=== PATIENT | male | born 1955 | race Hispanic/Latino ===

== ENCOUNTER 2017-12-02 23:11 | Emergency (ER) | payer OTHER | END 2017-12-03 00:09 | disposition home or self-care (01) | LOC: ERS 23:11 | DX: L25.3 Unspecified contact dermatitis due to other chemical products (principal); I10 Essential (primary) hypertension; K74.60 Unspecified cirrhosis of liver; J44.9 Chronic obstructive pulmonary disease, unspecified; F41.9 Anxiety disorder, unspecified; F31.9 Bipolar disorder, unspecified; F20.9 Schizophrenia, unspecified; Z87.891 Personal history of nicotine dependence | CPT/HCPCS: 99283 ==

== ENCOUNTER 2017-12-24 06:57 | Emergency (ER) | payer OTHER ==
[2017-12-24] MEDS ORDERED: Dexamethasone 10 MG/ML VIAL ONE (07:43)
== END 2017-12-24 08:16 | disposition home or self-care (01) ==
LOC: ERS 06:57
DX: L40.9 Psoriasis, unspecified (principal); I10 Essential (primary) hypertension; J44.9 Chronic obstructive pulmonary disease, unspecified; F41.9 Anxiety disorder, unspecified; F31.9 Bipolar disorder, unspecified; F20.9 Schizophrenia, unspecified; Z87.891 Personal history of nicotine dependence
CPT/HCPCS: 96372; J1100

== ENCOUNTER 2018-01-08 21:17 | Emergency (ER) | payer OTHER ==
[~2018-01-08 21:17] MED LIST: ISOVUE-370 76%-LOCM 1 ML ONE
[2018-01-08 21:58] LABS: Bilirubin Small (Negative); Blood, Urine Large (Negative); Clarity CLEAR (Clear); Glucose, Urine (Dipstick) Negative (Negative); Leukocyte Trace (Negative); Nitrite Negative (Negative); Protein, Urine (Dipstick) Negative (Neg-Trace); Specific Gravity, Urine 1.017 (1.002-1.036)
[2018-01-08 22:00] LABS: Bacteria/HPF None Seen HPF (None Seen); Hyaline Casts/LPF 0-3 HYALINE CAST LPF (0-3 Hyaline); Squamous Epithelial None Seen HPF (0-3); WBC/HPF 0-3 HPF (0-3)
[2018-01-08 22:01] LABS: Hemoglobin 15.6 g/dL (14.0-18.0); Mean Corpuscular HGB CONC 33.3 g/dL (32.0-36.0); Mean Corpuscular Hemoglobin 37.9 pg (27.0-31.0); RBC Distribution Width 12.9 % (11.5-14.5); Red Blood Cell (RBC) Count 4.11 mill/uL (4.70-6.10); White Blood Cell (WBC) Count 7.4 thou/uL (4.8-10.8)
[2018-01-08 22:11] LABS: Yeast-AUWi Flag 57.3 (0-25.0); Yeast-All Forms None Seen HPF (None Seen)
[2018-01-08 22:13] LABS: ALT (SGPT) 20 U/L (8-55); AST (SGOT) 41 U/L (5-34); Albumin 3.2 g/dL (3.4-4.8); Alkaline Phosphatase 219 U/L (40-150); Anion Gap 11 mmol/L (10-20); BUN (Urea Nitrogen) 7 mg/dL (8.4-25.7); Bilirubin, Total 2.5 mg/dL (0.2-1.2); Calc. Creatinine Clearance 0 mL/min (70-130); Calcium 9.3 mg/dL (7.8-10.44); Carbon Dioxide 25 mmol/L (23-31); Chloride 108 mmol/L (98-107); Estimated GFR-MDRD Greater than 90; Globulin 3.5 g/dL (2.4-3.5); Glucose 123 mg/dL (80-115); Lipase 37 U/L (8-78); Potassium 3.8 mmol/L (3.5-5.1); Protein, Total 6.7 g/dL (5.8-8.1); Sodium 140 mmol/L (136-145)
[2018-01-08 22:17] LABS: #Basophils 0.1 thou/uL (0.0-0.2); #Lymphocytes 3.6 thou/uL (1.20-3.40); #Monocytes 0.9 thou/uL (0.11-0.59); #Neutrophils 2.7 thou/uL (1.40-6.50); %Basophils 1.7 % (0.0-1.0); %Eosinophils 0.1 % (0.0-10.0); %Lymphocytes 49.4 % (21.0-51.0); %Monocytes 12.7 % (0.0-10.0); %Neutrophils 36.1 % (42.0-75.0); MDiff Complete? YES; Macrocytosis SLIGHT = 6-15 cells (100X) (0-5/hpf); Mean Platelet Volume 8.5 fL (7.4-10.4); PLT Morphology Comment Appears Decreased; Platelet Count 115 thou/uL (130-400)
--- NOTE | 2018-01-08 22:41 | CT ---
CT ABDOMEN AND PELVIS WITH IV CONTRAST 01/08/18 HISTORY: Abdominal pain. Nausea. COMPARISON: 07/13/14. FINDINGS: There is mild atelectasis at the lung bases. Liver is diffusely hypodense with an irregular contour. Hypervascular lesions at the dome of the right liver lobe likely represents a hemangioma. Spleen is s urgically absent. Varices are apparent within the left upper quadrant. Hyperdense stones are evident within the gallbladder lumen. Multiple stones are present throughout nondilated calyces of the left kidney, measuring up to 1.1 cm. Urinary collecting systems and ureter are decompressed. Diverticula a rise from the colon without adjacent inflammation. There are degenerative changes of the lumbar spine . IMPRESSION: 1. 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 2. Nonobstructing left renal calculi. 3. Cholelithiasis. 4. Diverticulosis. No evidence of diverticulitis. 5. Hepatic steatosis. POS: [facility] [place]
== END 2018-01-08 23:13 | disposition home or self-care (01) ==
LOC: ERS 21:17
DX: R11.2 Nausea with vomiting, unspecified (principal); R16.0 Hepatomegaly, not elsewhere classified; R10.9 Unspecified abdominal pain; I10 Essential (primary) hypertension; J44.9 Chronic obstructive pulmonary disease, unspecified; F41.9 Anxiety disorder, unspecified; F20.9 Schizophrenia, unspecified; F31.9 Bipolar disorder, unspecified; Z87.891 Personal history of nicotine dependence; Z79.899 Other long term (current) drug therapy
CPT/HCPCS: 74177; 80053; 81003; 81015; 83690; 85025; 93005; 96360

== ENCOUNTER 2018-01-13 20:54 | Emergency (ER) | payer OTHER ==
[2018-01-13] MEDS ORDERED: Furosemide 20 MG/2 ML VIAL ONE (22:51)
[2018-01-13] MEDS ORDERED: Furosemide 40 MG/4 ML VIAL ONE (22:52)
[2018-01-13] MEDS ORDERED: Furosemide 40 MG TAB ONE (22:53)
== END 2018-01-13 23:16 | disposition home or self-care (01) ==
LOC: ERS 20:54
DX: R60.0 Localized edema (principal); F10.20 Alcohol dependence, uncomplicated; I10 Essential (primary) hypertension; K74.60 Unspecified cirrhosis of liver; J44.9 Chronic obstructive pulmonary disease, unspecified; F41.9 Anxiety disorder, unspecified; F31.9 Bipolar disorder, unspecified; F20.9 Schizophrenia, unspecified; Z87.891 Personal history of nicotine dependence
CPT/HCPCS: 99283; J1940

== ENCOUNTER 2018-01-19 21:39 | Emergency (ER) | payer OTHER ==
[2018-01-19 22:17] LABS: INR-International Normal Ratio 1.4; PTT 35.3 SEC (22.9-36.1); Prothrombin Time 17.3 SEC (12.0-14.7)
[2018-01-19 22:24] LABS: Lymphocytes 67 % (21-51); MDiff Complete? YES; Mean Corpuscular HGB CONC 33.1 g/dL (32.0-36.0); Mean Corpuscular Hemoglobin 37.6 pg (27.0-31.0); Mean Platelet Volume 8.6 fL (7.4-10.4); Monocytes 12 % (0-10); Neutrophil 19 % (42-75); PLT Morphology Comment Appears Adequate; Platelet Count 136 thou/uL (130-400); RBC Distribution Width 13.2 % (11.5-14.5); Red Blood Cell (RBC) Count 3.98 mill/uL (4.70-6.10)
[2018-01-19 22:30] LABS: ALT (SGPT) 22 U/L (8-55); AST (SGOT) 46 U/L (5-34); Albumin 3.2 g/dL (3.4-4.8); Alkaline Phosphatase 309 U/L (40-150); Anion Gap 12 mmol/L (10-20); BUN (Urea Nitrogen) 7 mg/dL (8.4-25.7); Bilirubin, Total 1.9 mg/dL (0.2-1.2); Calc. Creatinine Clearance 0 mL/min (70-130); Calcium 8.8 mg/dL (7.8-10.44); Carbon Dioxide 26 mmol/L (23-31); Chloride 110 mmol/L (98-107); Estimated GFR-MDRD Greater than 90; Globulin 3.3 g/dL (2.4-3.5); Glucose 136 mg/dL (80-115); Potassium 3.7 mmol/L (3.5-5.1); Protein, Total 6.5 g/dL (5.8-8.1); Sodium 144 mmol/L (136-145)
--- NOTE | 2018-01-19 23:48 | ULT ---
BILATERAL TESTICULAR ULTRASOUND WITH COLOR AND SPECTRAL DOPPLER: History: Injury. Bleeding from the right scrotum. FINDINGS: The right testes measures 4.1 x 2.4 x 3 cm and the left testes measures 4.2 x 2.2 x 3 cm. There is no rmal flow demonstrated to both testicles without focal mass or microlithiasis. The epididymi have a n ormal appearance and demonstrate symmetric flow bilaterally. Small hydroceles are seen on either side . A left sided extratesticular tubular structure is seen with increased flow of valsalva consistent w ith variceal. IMPRESSION: 1. Left sided vericocele. 2. Small bilateral hydroceles. 3. No evidence of testicular fracture. POS: [facility]
== END 2018-01-20 00:02 | disposition home or self-care (01) ==
LOC: ERS 21:39
DX: N50.1 Vascular disorders of male genital organs (principal); I10 Essential (primary) hypertension; J44.9 Chronic obstructive pulmonary disease, unspecified; F41.9 Anxiety disorder, unspecified; F20.9 Schizophrenia, unspecified; Z79.899 Other long term (current) drug therapy
CPT/HCPCS: 76870; 80053; 85025; 85610; 85730; 93976

== ENCOUNTER 2018-03-02 05:39 | Emergency (ER) | payer OTHER | END 2018-03-02 07:27 | disposition home or self-care (01) | LOC: ERS 05:39 | DX: S00.81XA Abrasion of other part of head, initial encounter (principal); F10.10 Alcohol abuse, uncomplicated; I10 Essential (primary) hypertension; J44.9 Chronic obstructive pulmonary disease, unspecified; F41.9 Anxiety disorder, unspecified; F31.9 Bipolar disorder, unspecified; F20.9 Schizophrenia, unspecified; Z87.891 Personal history of nicotine dependence; Z79.899 Other long term (current) drug therapy; X58.XXXA Exposure to other specified factors, initial encounter | CPT/HCPCS: 99283 ==

== ENCOUNTER 2018-04-08 23:09 | Emergency (ER) | payer OTHER ==
[2018-04-09] LABS: Hemoglobin 15.4 g/dL (14.0-18.0); Mean Corpuscular HGB CONC 33.3 g/dL (32.0-36.0); Mean Corpuscular Hemoglobin 36.8 pg (27.0-31.0); RBC Distribution Width 13.2 % (11.5-14.5); Red Blood Cell (RBC) Count 4.18 mill/uL (4.70-6.10); White Blood Cell (WBC) Count 6.7 thou/uL (4.8-10.8)
[2018-04-09 00:18] LABS: ALT (SGPT) 39 U/L (8-55); AST (SGOT) 81 U/L (5-34); Albumin 3.2 g/dL (3.4-4.8); Alkaline Phosphatase 182 U/L (40-150); Anion Gap 10 mmol/L (10-20); BUN (Urea Nitrogen) 9 mg/dL (8.4-25.7); Bilirubin, Total 4.3 mg/dL (0.2-1.2); Calc. Creatinine Clearance 0 mL/min (70-130); Calcium 9.1 mg/dL (7.8-10.44); Carbon Dioxide 23 mmol/L (23-31); Chloride 104 mmol/L (98-107); Estimated GFR-MDRD Greater than 90; Globulin 3.5 g/dL (2.4-3.5); Glucose 104 mg/dL (80-115); Potassium 3.7 mmol/L (3.5-5.1); Protein, Total 6.7 g/dL (5.8-8.1); Sodium 133 mmol/L (136-145)
[2018-04-09 00:24] LABS: Bilirubin Negative (Negative); Blood, Urine Negative (Negative); Clarity CLEAR (Clear); Glucose, Urine (Dipstick) Negative (Negative); Leukocyte Negative (Negative); Nitrite Negative (Negative); Protein, Urine (Dipstick) Negative (Neg-Trace); Specific Gravity, Urine 1.007 (1.002-1.036)
[2018-04-09 00:27] LABS: Band 1 % (5-11); Eosinophils 1 % (0-10); Lymphocytes 57 % (21-51); MDiff Complete? YES; Macrocytosis SLIGHT = 6-15 cells (100X) (0-5/hpf); Mean Platelet Volume 9.9 fL (7.4-10.4); Monocytes 12 % (0-10); Neutrophil 28 % (42-75); PLT Morphology Comment Appears Decreased; Platelet Count 78 thou/uL (130-400); Reactive Lymphocytes 1 % (0-10)
[2018-04-09 01:11] LABS: Lipase 51 U/L (8-78)
== END 2018-04-09 01:38 | disposition home or self-care (01) ==
LOC: ERS 23:09
DX: K92.2 Gastrointestinal hemorrhage, unspecified (principal); D69.59 Other secondary thrombocytopenia; L29.0 Pruritus ani; R79.89 Other specified abnormal findings of blood chemistry; I10 Essential (primary) hypertension; F41.9 Anxiety disorder, unspecified; F31.9 Bipolar disorder, unspecified; Z87.891 Personal history of nicotine dependence; Z79.899 Other long term (current) drug therapy
CPT/HCPCS: 36415; 80053; 81003; 82274; 83690; 85025; 86850; 86900; 86901; 96360

== ENCOUNTER 2019-05-25 02:53 | Emergency (ER) | payer OTHER ==
[2019-05-25 03:46] LABS: Band 2 % (5-11); Eosinophils 1 % (0-10); Hemoglobin 14.1 g/dL (14.0-18.0); Lymphocytes 56 % (21-51); MDiff Complete? YES; Macrocytosis MODERATE=16-30 cells (100X) (0-5/hpf); Mean Corpuscular HGB CONC 31.7 g/dL (32.0-36.0); Mean Corpuscular Hemoglobin 37.4 pg (27.0-31.0); Mean Platelet Volume 9.5 fL (7.4-10.4); Monocytes 11 % (0-10); Neutrophil 28 % (42-75); Platelet Count 93 thou/uL (130-400); Platelet Morphology Comment Appears Decreased; RBC Distribution Width 14.4 % (11.5-14.5); Reactive Lymphocytes 2 % (0-10); Red Blood Cell (RBC) Count 3.76 mill/uL (4.70-6.10); White Blood Cell (WBC) Count 8.6 thou/uL (4.8-10.8)
[2019-05-25 03:54] LABS: ALT (SGPT) 43 U/L (8-55); AST (SGOT) 98 U/L (5-34); Albumin 2.9 g/dL (3.4-4.8); Alkaline Phosphatase 254 U/L (40-150); Anion Gap 11 mmol/L (10-20); BUN (Urea Nitrogen) 8 mg/dL (8.4-25.7); Bilirubin, Total 3.9 mg/dL (0.2-1.2); Calc. Creatinine Clearance 0 mL/min (70-130); Calcium 8.9 mg/dL (7.8-10.44); Carbon Dioxide 23 mmol/L (23-31); Chloride 107 mmol/L (98-107); Estimated GFR-MDRD Greater than 90; Globulin 3.3 g/dL (2.4-3.5); Glucose 105 mg/dL (80-115); Potassium 3.9 mmol/L (3.5-5.1); Protein, Total 6.2 g/dL (5.8-8.1); Sodium 137 mmol/L (136-145)
--- NOTE | 2019-05-25 08:12 | RAD ---
CHEST 2 VIEWS: INDICATION: Chest pain. COMPARISON: Prior exam dated 08/24/2016 and 06/13/2017. FINDINGS: No confluent airspace opacity or pleural effusion is evident. Heart size is upper limits of normal. No acute osseous abnormality is evident. IMPRESSION: No acute cardiopulmonary abnormality. POS: [facility]
== END 2019-05-25 06:05 | disposition home or self-care (01) ==
LOC: ERS 02:53
DX: R60.0 Localized edema (principal); I10 Essential (primary) hypertension; F31.9 Bipolar disorder, unspecified; F41.9 Anxiety disorder, unspecified; F20.9 Schizophrenia, unspecified; Z87.891 Personal history of nicotine dependence; Z79.899 Other long term (current) drug therapy
CPT/HCPCS: 36415; 71046; 80053; 83880; 84484; 85025; 93005

== ENCOUNTER 2019-06-03 01:21 | Emergency (ER) | payer OTHER | END 2019-06-03 03:05 | disposition home or self-care (01) | LOC: ERS 01:21 | DX: Z03.89 Encounter for observation for other suspected diseases and conditions ruled out (principal); I10 Essential (primary) hypertension; J44.9 Chronic obstructive pulmonary disease, unspecified; F32.9 Major depressive disorder, single episode, unspecified; F41.9 Anxiety disorder, unspecified; F20.9 Schizophrenia, unspecified; Z87.891 Personal history of nicotine dependence; Z79.899 Other long term (current) drug therapy | CPT/HCPCS: 99283 ==

== ENCOUNTER 2019-08-28 20:50 | Inpatient (IN) | payer OTHER ==
[2019-08-28 21:48] LABS: Hemoglobin 14.2 g/dL (14.0-18.0); Red Blood Cell (RBC) Count 3.63 mill/uL (4.70-6.10); White Blood Cell (WBC) Count 16.7 thou/uL (4.8-10.8)
[2019-08-28 22:04] LABS: Band 13 % (5-11); Lymphocytes 1 % (21-51); MDiff Complete? YES; Macrocytosis SLIGHT = 6-15 cells (100X) (0-5/hpf); Mean Corpuscular HGB CONC 33.7 g/dL (32.0-36.0); Mean Corpuscular Hemoglobin 39.1 pg (27.0-31.0); Mean Platelet Volume 10.8 fL (7.4-10.4); Monocytes 6 % (0-10); Neutrophil 80 % (42-75); Platelet Count 60 thou/uL (130-400); Platelet Morphology Comment Appears Decreased; RBC Distribution Width 14.7 % (11.5-14.5)
[2019-08-28 22:09] LABS: ALT (SGPT) 68 U/L (8-55); AST (SGOT) 360 U/L (5-34); Acetaminophen Less than 6.0 mcg/mL (10.0-30.0); Albumin 2.5 g/dL (3.4-4.8); Alcohol Less than 10 mg/dL (Less than 10); Alkaline Phosphatase 176 U/L (40-110); Anion Gap 12 mmol/L (10-20); BUN (Urea Nitrogen) 15 mg/dL (8.4-25.7); Calc. Creatinine Clearance 0 mL/min (70-130); Carbon Dioxide 22 mmol/L (23-31); Chloride 100 mmol/L (98-107); Estimated GFR-MDRD 76; Globulin 3.4 g/dL (2.4-3.5); Glucose 124 mg/dL (80-115); Lipase 16 U/L (8-78); Potassium 3.7 mmol/L (3.5-5.1); Protein, Total 5.9 g/dL (5.8-8.1); Salicylate Less than 8.0 mg/dL (15.0-30.0); Sodium 130 mmol/L (136-145)
[2019-08-28] MEDS ORDERED: Piperacillin/Tazobactam 4.5 GM VIAL ONE (22:24)
[2019-08-28 22:30] LABS: CKMB 5.9 ng/mL (0-6.6)
[2019-08-28 23:12] LABS: Amphetamine Not Detected (NotDetected); Barbiturates Screen Not Detected (NotDetected); Benzodiazepine Screen Not Detected (NotDetected); Cocaine Metabolite Screen Not Detected (NotDetected); Medtox Control Line Valid? VALID (VALID); Medtox Reader # READER 4; Methadone Not Detected (NotDetected); Methamphetamine Not Detected (NotDetected); Opiate Screen Not Detected (NotDetected); Oxycodone Screen Not Detected (NotDetected); Phencyclidine (PCP) Not Detected (NotDetected); THC/Cannabinoid Screen Not Detected (NotDetected); Tricyclic Screen Not Detected (NotDetected)
--- NOTE | 2019-08-28 23:13 | CT ---
EXAM: CT brain without contrast HISTORY: Fall with head trauma COMPARISON: 09/24/2016 TECHNIQUE: Multiple contiguous axial images were obtained and a CT of the brain without contrast. FINDINGS: The brain is normal in morphology and attenuation without focal lesions or confluent areas of infarction. There is no evidence of hydrocephalus, intracranial hemorrhage, or extra-axial fluid collection. The calvarium and overlying soft tissues are unremarkable. The visualized paranasal sinuses and masto id air cells are well aerated. IMPRESSION: No evidence of acute intracranial abnormality
--- NOTE | 2019-08-28 23:14 | CT ---
EXAM: CT of the cervical spine without contrast HISTORY: Fall in shower with head trauma and neck pain COMPARISON: 01/02/2016 TECHNIQUE: Multiple contiguous axial images were obtained in a CT of the cervical spine without contr ast. Sagittal and coronal reformats were performed. FINDINGS: The vertebral bodies and intervertebral discs demonstrate normal height and alignment witho ut fracture or subluxation. Degenerative changes are seen at C6/7. No prevertebral soft tissue swelling is seen. The posterior facets are well aligned. Normal alignment of the skull base with the cervical spine is seen. The lung apices and cervical soft tissues are unremarkable. IMPRESSION: No evidence of acute osseous abnormality of the cervical spine.
--- NOTE | 2019-08-28 23:22 | CT ---
EXAM: 1. CT of the chest with contrast 2. CT of the abdomen and pelvis with contrast 3. Limited CT of the thoracic and lumbosacral spine with contrast HISTORY: Fall in shower with chest pain, abdominal pain, and back pain. COMPARISON: 01/08/2018 TECHNIQUE: 1. Multiple contiguous axial images were obtained in a CT the chest with contrast. Coronal reformats were performed. 2. Multiple contiguous axial images were obtained in a CT of the abdomen and pelvis with contrast. Co jennifer reformats were performed. 3. Limited CTs of the thoracic and lumbosacral spines were performed with contrast. Sagittal and milagros nal re-reformats were created based off images obtained in the chest, abdomen, and pelvic CTs. FINDINGS: CT CHEST: Mediastinum: Heart is normal in size without focal cardiac abnormality. No hilar or mediastinal lymph adenopathy. No mediastinal hemorrhage. Lungs: No focal infiltrates or nodules. Bibasilar atelectasis. Pleural space: No pneumothorax or pleural effusion. Thoracic bones: No evidence of acute fracture. Thoracic chest wall: Unremarkable. CT ABDOMEN/PELVIS: Peritoneum: No free air or stranding changes. A small amount of free fluid is seen adjacent to the li ofelia. Liver: Liver is cirrhotic. There are 3 areas of hyperenhancement in the liver measuring up to 4.8 cm in size. These have enlarged compared to the prior examination and are concerning for multifocal hepatocellular carcinoma. Gallbladder: Calcified gallstones. Adrenal glands: Unremarkable. Kidneys: Nonobstructing bilateral renal calcifications measuring up to 10 mm in size on the left. Spleen: Absent. There may be a small splenule just above the left kidney. There are multiple varices in the left upper quadrant of the abdomen. Pancreas: Unremarkable. Bowel: Unremarkable. Retroperitoneum: No lymphadenopathy. Atherosclerotic calcifications in the aorta. Pelvis: No focal mass or abnormality. The reproductive organs are unremarkable. Pelvic bones: No acute fracture identified. LIMITED CT OF THE THORACIC AND LUMBOSACRAL SPINE: No fracture or subluxation is seen. No prevertebral soft tissue swelling are present. IMPRESSION: 1. No evidence of acute intrathoracic abnormality 2. No evidence of acute intra-abdominal or pelvic abnormality 3. No evidence of acute osseous abnormality of the thoracic or lumbosacral spine. 4. Cirrhosis with sequelae of portal hypertension 5. Enlarging liver masses are concerning for multifocal hepatocellular carcinoma. 6. Cholelithiasis 7. Bilateral nonobstructing renal calculi
[2019-08-28 23:34] LABS: PTT 38.5 SEC (22.9-36.1); Prothrombin Time 22.6 SEC (12.0-14.7)
[2019-08-29] MEDS ORDERED: Furosemide 40 MG/4 ML VIAL ONE (00:10)
[2019-08-29 01:59] LABS: Bacteria/HPF None Seen HPF (None Seen); Bilirubin Negative (Negative); Blood, Urine 1+ (Negative); Clarity Clear (Clear); Glucose, Urine (Dipstick) Normal (Negative); Leukocyte Negative Leu/uL (Negative); Nitrite Negative (Negative); Protein, Urine (Dipstick) Negative (Neg-Trace); RBC/HPF 0-3 HPF (0-3); Squamous Epithelial 0-3 HPF (0-3); Urobilinogen Normal mg/dL (Less than 2); WBC/HPF 0-3 HPF (0-3)
[2019-08-29 02:07] LABS: Lactic Acid 3.3 mmol/L (0.5-2.2)
[2019-08-29 02:15] LABS: CKMB 5.9 ng/mL (0-6.6)
[2019-08-29 02:21] LABS: Troponin I 0.054 ng/mL (< 0.028)
[2019-08-29] MEDS ORDERED: Magnesium 2 GM/50 ML BAG (IN WATER) ONE (02:27)
[2019-08-29] MEDS: Piperacillin/Tazobactam 3.375 GM in Sodium Chloride 0.9% 100 ML IVPB SCH ×2 (04:51→09:32)
[2019-08-29 04:58] LABS: #Lymphocytes 2.2 thou/uL (1.20-3.40); #Monocytes 1.7 thou/uL (0.11-0.59); %Basophils 0.2 % (0.0-1.0); %Lymphocytes 12.8 % (21.0-51.0); Hemoglobin 14.8 g/dL (14.0-18.0); Mean Corpuscular HGB CONC 33.3 g/dL (32.0-36.0); Mean Corpuscular Hemoglobin 38.9 pg (27.0-31.0); Mean Platelet Volume 10.9 fL (7.4-10.4); Platelet Count 65 thou/uL (130-400); White Blood Cell (WBC) Count 16.9 thou/uL (4.8-10.8)
[2019-08-29 05:25] LABS: ALT (SGPT) 75 U/L (8-55); AST (SGOT) 424 U/L (5-34); Albumin 2.4 g/dL (3.4-4.8); Alkaline Phosphatase 157 U/L (40-110); Anion Gap 15 mmol/L (10-20); BUN (Urea Nitrogen) 15 mg/dL (8.4-25.7); Bilirubin, Total 6.3 mg/dL (0.2-1.2); Calc. Creatinine Clearance 114 mL/min (70-130); Carbon Dioxide 19 mmol/L (23-31); Chloride 102 mmol/L (98-107); Estimated GFR-MDRD Greater than 90; Globulin 3.6 g/dL (2.4-3.5); Glucose 105 mg/dL (80-115); Magnesium 1.6 mg/dL (1.6-2.6); Potassium 3.2 mmol/L (3.5-5.1); Sodium 133 mmol/L (136-145)
--- NOTE | 2019-08-29 07:52 | ULT ---
PRELIMINARY REPORT/[facility]/EMERGENCY AFTER HOURS PROCEDURE: PROCEDURE INFORMATION: Exam: US Abdomen Limited, Right Upper Quadrant Exam date and time: 08/28/2019 11:37 PM Clinical history: 64 years old, male; Other: Ruq pain TECHNIQUE: Imaging protocol: Real-time ultrasound of the abdomen with image documentation. Examination was focused on the right upper quadrant. COMPARISON: No relevant prior studies available. FINDINGS: Liver: Hepatic steatosis. Multiple hypoechoic hepatic lesions, the largest of which measures 4.5 cm, indeterminate, potentially malignant. Gallbladder: Gallstone at the neck of the gallbladder. Gallbladder is distended. Diffuse gallbladder wall thickening. No paracolic cystic fluid. Sonographic Alvarez sign is positive. Common bile duct: Normal. No stones. No dilation. Pancreas: Visualized pancreas is unremarkable. Right kidney: Normal. No mass. No hydronephrosis. IMPRESSION: 1. Multiple hypoechoic hepatic lesions, the largest of which measures 4.5 cm, indeterminate, potentially malignant. 2. Gallstone at the neck of the distended gallbladder with diffuse gallbladder wall thickening and positive sonographic Alvarez sign, compatible with acute cholecystitis. Thank you for allowing us to participate in the care of your patient. Dictated and Authenticated by: Michael Llanes MD 08/29/2019 12:53 AM Central Time ([place] & [place]) FINAL REPORT EMERGENCY AFTER HOURS STUDY ULTRASOUND ABDOMEN LIMITED: (RIGHT UPPER QUADRANT) DATE: 08/28/2019. HISTORY: A 64-year-old male with right upper quadrant abdominal pain. FINDINGS: Gallbladder:18 mm calculus at proximal gallbladder body, possibly lodged. Mural thickening up to 6 mm . This could be due to the liver disease and does not necessarily imply acute cholecystitis. No pericholecystic fluid. However, marketing services vice president reports positive sonographic Alvarez's sign. Lumen not exc essively distended. Common duct: 5 mm. Liver:Diffusely coarse parenchymal architecture consistent with cirrhosis. At least 3 hypoechoic tea d hepatic masses: 4.5 x 4 x 4.5 cm mass in right lobe, 2.5 x 1.5 cm hypoechoic mass in left lobe, and 2.5 x 1.5 cm mass in the left lobe. Pancreas:Tail obscured by shadowing from bowel gas. Unremarkable appearance of body. Right kidney:No hydronephrosis. Agree with preliminary report by [facility]. IMPRESSION: 1) Cholelithiasis. 2) Uncertainty regarding acute cholecystitis. 3) Hepatic cirrhosis. 4) At least 3 solid hepatic masses. Transcribed Date/Time: 08/29/2019 8:00 AM
[2019-08-29] MEDS ORDERED: Vancomycin HCl 1.25 GM in Sodium Chloride 0.9% 250 ML 250 ML IVPB SCH (09:00)
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
[2019-08-29] MEDS: Vancomycin HCl 1.25 GM in Sodium Chloride 0.9% 250 ML 250 ML IVPB SCH ×2 (09:59→23:51)
[2019-08-29] MEDS ORDERED: Ondansetron PF 4 MG/2 ML Vial IVP PRN (10:20)
[2019-08-29] MEDS ORDERED: Ondansetron ODT 4 MG TAB PO PRN (10:20)
[2019-08-29] MEDS ORDERED: Magnesium 2 GM/50 ML 2 GM in Premix Bag 1 BAG IVPB SCH (10:30)
[2019-08-29] MEDS ORDERED: Phytonadione 10 MG/ML AMP PO SCH (10:30)
--- NOTE | 2019-08-29 11:31 | HP ---
PRIMARY CARE PROVIDER: [facility]. CHIEF COMPLAINT: Worsening back pain and ill feeling. HISTORY OF PRESENT ILLNESS: A 64-year-old male with past medical history significant for liver cirrhosis from chronic alcohol use and hepatitis C, brought in by EMS after a fall. The patient reported worsening ill feeling in the last 2 to 3 days, associated with nausea and vomiting, poor oral intake, and generalized weakness. He reportedly fell off his bed 2 days ago, and yesterday, while after having a shower, he slipped and fell, causing worsening back pain. He was unable to get up, hence friend called EMS and the patient was subsequently brought to the hospital. The patient denied fever, hematemesis, chest pain, cough, change in mental status, focal weakness, dysuria, hematuria, or hematochezia. He, however, reported bleeding around the perineal area from chronic rash. Further evaluation in the ER showed leukocytosis with elevated troponin and lactic acid. CT scan of the abdomen and chest showed cholelithiasis, nephrolithiasis as well as multiple liver masses concerning for hepatocellular cancer. Liver function also was elevated with hyperbilirubinemia. The patient is admitted for further evaluation and treatment. He reported that he has been having back pain for more than 2 years, but it is getting worse in the last few days. The patient continues to drink about 4 to 6 beers every day with last drink being 2 days ago due to nausea and vomiting. Oral intake has been poor due to nausea and vomiting as well. PAST MEDICAL HISTORY: 1. Liver cirrhosis. 2. Hypertension. 3. Chronic back pain. 4. Chronic hepatitis C infection. 5. Chronic alcohol abuse. 6. Bipolar disorder. 7. Prior history of hepatic encephalopathy. PAST SURGICAL HISTORY: 1. Left arm surgery. 2. Abdominal surgery for abdominal injury as well as splenectomy. FAMILY HISTORY: Positive for diabetes and prostate cancer in father. SOCIAL HISTORY: The patient lives alone. Friends do visit him. He used to smoke, but stopped about 40 years ago. He currently drinks about 6 beers every day, which is down from his 12 beers per day previously. He denied recreational drug use currently, though he has used drugs in the past. ALLERGIES: NO KNOWN DRUG ALLERGIES REPORTED. HOME MEDICATIONS: 1. Protonix 40 mg p.o. daily. 2. Cyanocobalamin 1000 mg p.o. daily. 3. Folic acid 1 mg p.o. daily. 4. Lisinopril 10 mg p.o. daily. 5. Multivitamin with minerals 1 tablet p.o. daily. 6. Thiamine 100 mg p.o. daily. REVIEW OF SYSTEMS: Twelve-point review of systems performed was negative other than pertinent positives and negatives included in the history of present illness. PHYSICAL EXAMINATION: VITAL SIGNS: Temperature 98.5, pulse 86, respiratory rate 20, SpO2 of 95% on room air, blood pressure 146/82. GENERAL: Disheveled male patient in no obvious distress. Afebrile and acyanotic. HEENT: Normocephalic, atraumatic. Oral mucosa is moist. NECK: Supple with good range of motion. No obvious masses or lymphadenopathy appreciated. CARDIOVASCULAR: Regular rhythm and rate with normal heart sounds 1 and 2. RESPIRATORY: Fair air entry bilaterally with some transmitted breath sounds. No obvious rhonchi are appreciated. GI: Full, soft, nondistended with normal bowel sounds. Mild right upper quadrant tenderness noted. UROGENITAL: Excoriations around the upper medial thigh bilaterally as well as the scrotum with some bleeding noted. MUSCULOSKELETAL: Lower back midline tenderness noted with no obvious Gibbus. EXTREMITIES: [id number] bilateral leg edema noted. SKIN: Excoriation of the face as well as the genital area noted. FOXING CLOSER: Conscious, alert and oriented x3 with appropriate mental status. Cranial nerves 2 through 12 are grossly intact. The patient moves all extremities. The patient is ambulant. DIAGNOSTIC DATA: CBC showed WBC count of 16.9, hemoglobin of 14.8, MCV of 117, platelet of 65. Coagulation panel showed PT 22.6, INR 2.0, and PTT 38.5. CMP showed sodium 133, potassium 3.2, chloride 102, CO2 of 19, BUN 15, creatinine 0.82, glucose 105, calcium 8.0, total bilirubin 6.3, AST 44, ALT 75, alkaline phosphatase 157, total protein 6.0, albumin 2.4, globulin 3.6. Lactic acid on presentation was 3.8 and currently it is 3.3. Magnesium on presentation was 1.4, currently 1.6. Cardiac markers showed CK-MB of 5.9, troponin of 0.057, and BNP of 1004.7. Serial troponin has been stable ranging from 0.050 to 0.066. Urinalysis showed light yellow clear urine with pH of 7.0, specific gravity of 1.009, urine blood 1+, negative protein, ketones, nitrite, bilirubin, and leukocyte esterase. Microscopy showed 0 to 3 rbc and wbc. Toxicology including salicylate, acetaminophen, alcohol, and urine drug screen were all unremarkable. IMAGING STUDIES: CT scan of the brain showed no acute intracranial abnormality. CT scan of the C-spine showed no AV evidence of acute osseous abnormality of the cervical spine. CT scan of the chest, abdomen, and pelvis showed no evidence of acute intrathoracic abnormality. No evidence of acute intra abdominal or pelvic abnormality. No evidence of acute osseous abnormality of the thoracic, lumbosacral spine. Cirrhosis with sequela of portal hypertension as well as enlarging liver masses concerning for multifocal hepatocellular carcinoma. Cholelithiasis and bilateral nonobstructing renal calculi were noted. Limited abdominal ultrasound showed multifocal hepatic lesions with the largest measuring 4.5 as well as gallstone at the neck of the distended gallbladder with diffuse gallbladder wall thickening and positive sonographic Alvarez sign compatible with acute cholecystitis. ASSESSMENT: 1. Sepsis: Most likely from acute cholecystitis. Intestinal infection like acute gastroenteritis cannot be ruled out given acute nausea, vomiting, and diarrhea. 2. Calculous cholecystitis. 3. Presumed multifocal hepatocellular cancer. 4. Liver cirrhosis from alcohol abuse and hepatitis C infection. 5. Coagulopathy from liver cirrhosis. 6. Hypokalemia. 7. Hypomagnesemia. 8. Metabolic acidosis. 9. Abnormal liver function tests. 10. Chronic alcohol abuse with high risk for withdrawal symptoms. 11. Presumed acute gastroenteritis. 12. Elevated troponin: Etiology is unclear. 13. Elevated B-type natriuretic peptide. 14. Nonobstructing bilateral nephrolithiasis. 15. Fall. 16. Physical deconditioning. 17. Genital rash with excoriation and bleeding. 18. Hypoalbuminemia. 19. Hyperbilirubinemia. PLAN: 1. We will continue broad-spectrum antibiotic therapy with vancomycin and Zosyn. 2. General Surgery and GI consult have been requested. 3. We will start the patient on vitamin K orally given coagulopathy from liver cirrhosis. 4. We will keep the patient n.p.o. for now given possible invasive intervention. 5. Alcohol withdrawal protocol will be commenced as the patient is high risk for withdrawal. 6. PT/OT consult to evaluate the patient and treat as appropriate. 7. SCDs for DVT prophylaxis. 8. Code status full code. The patient's brother is the surrogate decision maker. Further treatment to follow depending on hospital course and recommendation from the subspecialties. Job ID: [id number]
[2019-08-29] MEDS ORDERED: Vancomycin HCl 1 GM in Premix Bag 1 BAG IVPB SCH (12:00)
[2019-08-29] MEDS ORDERED: Morphine 2 MG/ML SYRINGE SLOW IVP SCH (16:15)
--- NOTE | 2019-08-29 17:19 | NM ---
NUCLEAR MEDICINE HEPATOBILIARY SCAN: DATE: 08/29/2019 HISTORY: 64-year-old cirrhotic male with right upper quadrant pain and cholelithiasis. Rule out acute cholecys titis. TECHNIQUE: Technetium 99m-mebrofenin dose: 5.2 mCi. Morphine sulfate dose: 2 mg. Tc 99- mebrofenin injected IV. Dynamic anterior scintigraphy of abdomen for one hour. Morphine IV pus h injected. Additional dynamic anterior scintigraphy of abdomen. FINDINGS: There is uptake but slow washout of activity from the liver. However, the common duct and bowel activ ity are visualized at appropriate time, and therefore this slow washout is due to moderate hepatocellular dysfunction rather than biliary obstruction. The gallbladder does not fill by 1 hour. After morphine injection, the gallbladder does fill with mebrofenin. IMPRESSION: 1) negative for acute cholecystitis. 2.) Moderate hepatocellular dysfunction. 3) no biliary obstruction.
[2019-08-29] MEDS ORDERED: Prevnar 13-Val Conj/PF 0.5 ML SYRINGE IM ONE (21:00)
--- NOTE | 2019-08-30 00:29 | CON ---
DATE OF CONSULTATION: 08/29/2019 REASON FOR CONSULTATION: Cirrhosis, abnormal LFTs, abnormal imaging of the liver. CONSULTING PROVIDER: Dr. Agustin Mendes. HISTORY OF PRESENT ILLNESS: The patient is a 64-year-old male with past medical history of chronic hepatitis C infection (genotype 2A, status post treatment and SVR in July 2016), alcoholic cirrhosis, depression, bipolar disorder, and hypertension, presenting with complaints of repeated falls. He states that he was in the usual state of health until approximately 2 days ago when at night he fell out of his bed and could not extricate himself from the floor for the next 6-7 hours secondary to increased pain on his right side and weakness of his upper and lower extremities. Ultimately, he was able to get himself back into bed, but has been exhibiting increased right-sided back pain and right hip pain ever since. The next day after the patient had taken a shower, he sustained an additional fall where the patient was also down for about an hour before being discovered by one of his caretakers. EMS was ultimately called and took the patient to the hospital for further evaluation. As part of the workup while in the ER, he was noted to have elevated LFTs as well as imaging concerning for multiple hepatic masses consistent with hepatocellular carcinoma. Imaging was also concerning for the presence of acute cholecystitis, so he was ultimately admitted to the hospital for further evaluation. In addition to the above symptoms, the patient currently endorses left upper extremity weakness, increased abdominal distention/ascites, bilateral lower extremity edema and darker colored urine over the last few days. However, he denies any nausea, vomiting, fevers, chills, encephalopathy, hematemesis, melena, hematochezia, dysphagia, or odynophagia. The patient does continue to drink alcohol, consuming approximately 4-6 beers daily with his last drink being 2 days ago and a history of prior heavier use. REVIEW OF SYSTEMS: A 10-category review of systems was obtained with all responses negative except for the pertinent positives as listed in HPI. PAST MEDICAL HISTORY: As per HPI. PAST SURGICAL HISTORY: Left arm surgery, splenectomy, indeterminate abdominal surgery. FAMILY HISTORY: Denies any GI malignancies. SOCIAL HISTORY: Denies any tobacco or illicit drug use; however he does drink approximately 4-6 beers daily. OUTPATIENT MEDICATIONS: Reviewed. ALLERGIES: NO KNOWN DRUG ALLERGIES. PHYSICAL EXAMINATION: VITAL SIGNS: Temperature 96.5, pulse 80, blood pressure 119/67, respiratory rate 20 saturating 94% on room air. GENERAL: The patient was sitting at bedside, in no acute distress. Alert and oriented x3. HEENT: Normocephalic, atraumatic. NECK: Supple. No JVD noted, but positive scleral icterus. CARDIOVASCULAR: Regular rate and rhythm with no discernible murmurs, gallops, or rubs. RESPIRATORY: Clear to auscultation bilaterally with no discernible wheezes or rales. ABDOMEN: Normoactive bowel sounds. Soft. Mild abdominal distention. Mild tenderness to palpation in the right upper quadrant and right flank. EXTREMITIES: Trace bilateral lower extremity edema extending to mid mena. LABORATORY DATA: CBC with a white blood cell count of 16.9, hemoglobin 14.8, hematocrit 44.4, platelets 65. INR 2. Chemistry with a sodium of 133, potassium 3.2, chloride 102, CO2 of 19, BUN 15, creatinine 0.82, glucose 105, AST 424, ALT 75, alkaline phosphatase 157, total bilirubin 6.3, albumin 2.4. Drug of abuse screen negative. Calculated MELD score at 24. IMAGING DATA: Right upper quadrant ultrasound was obtained on August 28, 2019, which showed hepatic steatosis as well as multiple hypoechoic hepatic lesions. The common bile duct was normal in appearance, but there were findings concerning for acute cholecystitis including a gallstone at the neck of the gallbladder with distention of the gallbladder itself, diffuse gallbladder wall thickening, was also seen with a positive Alvarez sign, but no pericholecystic fluid. The common bile duct was mentioned to be normal in appearance. CT of the abdomen and pelvis was obtained on August 28, 2019, which showed cirrhotic morphology in addition to 3 areas of hyperenhancement in the liver measuring up to 4.8 cm and enlarging when compared to previous studies. The spleen was surgically absent consistent with history of splenectomy. HIDA scan was also obtained on August 29, 2019. The HIDA scan was unable to be brought up at this time, but per my conversation with the general surgeon, Dr. Cem willett it was negative for acute cholecystitis. ASSESSMENT AND PLAN: The patient is a 64-year-old male with past medical history of chronic hepatitis C infection status post treatment and systemic virologic response, depression, bipolar disorder and hypertension, presenting with imaging concerning for hepatocellular carcinoma and rhabdomyolysis. Hepatocellular carcinoma. The patient is presenting with cirrhotic morphology as well as a history of cirrhosis. This has been present since at least 2014. The etiology of his cirrhosis is most likely either chronic hepatitis C infection versus alcohol abuse or combination of 2. Currently, he is presenting with decompensated disease with a MELD score of 24 and Child-Atkinson classification C. When compared to previous imaging studies done in the past, the patient now has 3 areas of hyperenhancement within the liver measuring up to 4.8 cm in size and given his history of cirrhosis it is strongly concerning for hepatocellular carcinoma. RECOMMENDATIONS: 1. We would obtain an alpha fetoprotein with morning labs for further evaluation of possible HCC. 2. If the patient does have an elevated AFP and these lesions are consistent with HCC on imaging, I would recommend transferring the patient to the [facility] in [place] for further treatment related to this (this can be done as an outpatient). Given his history of recent alcohol abuse, the patient is not currently a transplant candidate. 3. Elevated LFTs. 4. The patient is presenting with a recent history of multiple falls and sustained time while down. On admission here at the ED, he was noted to have moderately elevated LFTs including a primarily AST predominance, although his alkaline phosphatase was mildly elevated and he did have an elevated total bilirubin. He was also noted to have an elevated white blood cell count, all of which is consistent with the diagnosis of rhabdomyolysis, which should be confirmed with a creatine kinase. If the patient did indeed sustained rhabdomyolysis, then it could potentially generate an elevated total bilirubin as well and falsely elevate his current MELD score. 5. We would obtain a creatine kinase for further evaluation of possible rhabdomyolysis. 6. Antibiotic therapy is not indicated at this time due to lack of evidence of acute cholecystitis. 7. We would recommend gentle IV fluid support given the evidence of probable rhabdomyolysis. 8. We will continue to follow. Please call with any questions. Job ID: [id number]
[2019-08-30 06:38] LABS: #Basophils 0.1 thou/uL (0.0-0.2); #Lymphocytes 2.8 thou/uL (1.20-3.40); #Monocytes 1.8 thou/uL (0.11-0.59); #Neutrophils 7.6 thou/uL (1.40-6.50); %Basophils 0.7 % (0.0-1.0); %Eosinophils 0.1 % (0.0-10.0); %Monocytes 14.7 % (0.0-10.0); %Neutrophils 61.5 % (42.0-75.0); Hemoglobin 14.6 g/dL (14.0-18.0); Mean Corpuscular HGB CONC 33.3 g/dL (32.0-36.0); Mean Platelet Volume 11.3 fL (7.4-10.4); Platelet Count 57 thou/uL (130-400); RBC Distribution Width 14.6 % (11.5-14.5); Red Blood Cell (RBC) Count 3.75 mill/uL (4.70-6.10); White Blood Cell (WBC) Count 12.3 thou/uL (4.8-10.8)
[2019-08-30 06:41] LABS: INR-International Normal Ratio 1.5; Prothrombin Time 18.5 SEC (12.0-14.7)
[2019-08-30 06:53] LABS: Lactic Acid 1.7 mmol/L (0.5-2.2)
[2019-08-30 06:57] LABS: ALT (SGPT) 99 U/L (8-55); AST (SGOT) 561 U/L (5-34); Albumin 2.5 g/dL (3.4-4.8); Alkaline Phosphatase 149 U/L (40-110); Anion Gap 10 mmol/L (10-20); BUN (Urea Nitrogen) 17 mg/dL (8.4-25.7); Bilirubin, Total 6.9 mg/dL (0.2-1.2); Calc. Creatinine Clearance 123 mL/min (70-130); Calcium 8.1 mg/dL (7.8-10.44); Carbon Dioxide 25 mmol/L (23-31); Chloride 102 mmol/L (98-107); Estimated GFR-MDRD Greater than 90; Globulin 3.7 g/dL (2.4-3.5); Glucose 98 mg/dL (80-115); Potassium 3.6 mmol/L (3.5-5.1); Protein, Total 6.2 g/dL (5.8-8.1); Sodium 133 mmol/L (136-145)
[2019-08-30 07:10] LABS: Vancomycin, Trough 14.4 ug/mL
[2019-08-30] MEDS ORDERED: Lactated Ringer's 1,000 ML IV SCH (08:00)
[2019-08-30] MEDS ORDERED: Lice Shampoo 120 ML BOT TOP SCH (10:00)
[2019-08-30] MEDS: Vancomycin HCl 1.25 GM in Sodium Chloride 0.9% 250 ML 250 ML IVPB SCH ×2 (10:51→23:00)
[2019-08-30] MEDS: Lactated Ringer's 1,000 ML IV SCH ×2 (11:55→17:42)
[2019-08-30] MEDS ORDERED: Phytonadione 10 MG/ML AMP PO SCH (12:00)
[2019-08-30] MEDS ORDERED: Furosemide 20 MG TAB PO SCH (12:00)
--- NOTE | 2019-08-30 13:15 | PRG ---
DATE OF SERVICE: 08/30/2019 SUBJECTIVE: The patient says he is hungry. He wants to eat some real food. He is tolerating clear liquids well. His pain is better, mainly on that right back, but it has improved. No nausea or vomiting. OBJECTIVE: VITAL SIGNS: Temperature 98.9, pulse 87, blood pressure 160/86. GENERAL: He looks good. He is in no distress. Still some mild tenderness on that right flank. LABORATORY DATA: His white count is down to 12. T-bili is still high at 6.9. ASSESSMENT: Cirrhosis. No evidence of acute cholecystitis by HIDA scan. PLAN: Heart healthy diet. Job ID: [id number]
--- NOTE | 2019-08-30 18:35 | PDOC.HOSPP ---
- Subjective Encounter Date: 08/30/19 Encounter Time: 10:34 Subjective: 64 y/o male with liver cirrhosis, chronic alcohol abuse, DM, COPD admitted with falls associated with worsening back pain, nausea, vomiting, worsening generalized weakness and hypoxia. found to have hyperbilirubinemia, abnormal LFTs, Liver masses, gall bladder distension. Feeling better. Complaining of hunger. - Objective Vital Signs & Weight: Vital Signs (12 hours) Temp Pulse Resp BP BP BP Pulse Ox 08/30/19 15:44 154/88 H 08/30/19 15:37 97.7 F 14 L 77 H 154/88 H 96 08/30/19 11:37 162/86 H 08/30/19 11:17 98.9 F 87 13 162/86 H 94 L 08/30/19 07:25 98.9 F 76 18 136/87 96 08/30/19 07:24 136/87 Weight Weight 195 lb 4.8 oz I&O: 08/29/19 08/30/19 08/31/19 06:59 06:59 06:59 Intake Total 184 359 9997 Output Total 500 Balance 706 669 4020 Result Diagrams: 08/30/19 06:21 08/30/19 06:21 Hospitalist ROS - Medication Medications: Active Medications Generic Name Dose Route Start Last Admin Trade Name Freq PRN Reason Stop Dose Admin Vancomycin HCl 1.25 gm/ Sodium 250 mls @ 166.667 mls/hr 08/29/19 11:00 10:51 Chloride IVPB 250 mls Q12H MAURICIO Administration Lactated Ringer's 1,000 mls @ 200 mls/hr 08/30/19 11:46 08/30/19 17:42 Lactated Ringer's IV 1,000 mls .Q5H MAURICIO Administration Sodium Chloride 10 ml 08/29/19 09:00 08/30/19 07:22 Flush - Normal Saline IVF 10 ml Q12HR MAURICIO Administration - Exam General Appearance: awake alert Eye: PERRL ENT: normocephalic atraumatic Neck: supple, symmetric, no JVD Heart: RRR Respiratory: no wheezes, no rales, no ronchi, normal chest expansion Gastrointestinal: soft, non-distended, normal bowel sounds Extremities: no cyanosis, 1+ LE edema Neurological: cranial nerve grossly intact, no focal deficits Psychiatric: normal affect, A&O x 3 Hosp A/P (1) Acute respiratory failure Code(s): J96.00 - ACUTE RESPIRATORY FAILURE, UNSP W HYPOXIA OR HYPERCAPNIA Status: Acute (2) Liver masses Code(s): R16.0 - HEPATOMEGALY, NOT ELSEWHERE CLASSIFIED Status: Acute (3) Hepatocellular carcinoma Code(s): C22.0 - LIVER CELL CARCINOMA Status: Acute (4) Rhabdomyolysis Code(s): M62.82 - RHABDOMYOLYSIS Status: Acute (5) Hyperbilirubinemia Code(s): E80.6 - OTHER DISORDERS OF BILIRUBIN METABOLISM Status: Acute (6) COPD (chronic obstructive pulmonary disease) Status: Acute (7) Acute exacerbation of chronic low back pain Code(s): M54.5 - LOW BACK PAIN; G89.29 - OTHER CHRONIC PAIN Status: Acute (8) Recurrent falls Code(s): R29.6 - REPEATED FALLS Status: Acute (9) Coagulopathy Status: Acute (10) Bipolar affective disorder Code(s): F31.9 - BIPOLAR DISORDER, UNSPECIFIED Status: Chronic (11) ETOH abuse Code(s): F10.10 - ALCOHOL ABUSE, UNCOMPLICATED Status: Chronic (12) HTN (hypertension) Code(s): I10 - ESSENTIAL (PRIMARY) HYPERTENSION Status: Chronic Qualifiers: Hypertension type: essential hypertension Qualified Code(s): I10 - Essential (primary) hypertension (13) Hepatitis C Code(s): B19.20 - UNSPECIFIED VIRAL HEPATITIS C WITHOUT HEPATIC COMA Status: Chronic Qualifiers: Viral hepatitis chronicity: chronic Hepatic coma status: without hepatic coma Qualified Code(s): B18.2 - Chronic viral hepatitis C (14) Hx of splenectomy Code(s): Z90.81 - ACQUIRED ABSENCE OF SPLEEN Status: Chronic (15) Liver cirrhosis Code(s): K74.60 - UNSPECIFIED CIRRHOSIS OF LIVER Status: Chronic Qualifiers: Hepatic cirrhosis type: alcoholic cirrhosis Ascites presence: without ascites Qualified Code(s): K70.30 - Alcoholic cirrhosis of liver without ascites - Plan Increase IVF rate to 200 due to increaseing CK level Start low dose lasix to avoid fluid overload Continue Vit K supplementation and monitor INR Follow LFT and CK Continue empirical antibiotics Appreciate GI and surgery input.
[2019-08-31 05:59] LABS: INR-International Normal Ratio 1.6; Prothrombin Time 18.8 SEC (12.0-14.7)
[2019-08-31 06:24] LABS: Band 3 % (5-11); Eosinophils 1 % (0-10); Hemoglobin 14.3 g/dL (14.0-18.0); Lymphocytes 24 % (21-51); MDiff Complete? YES; Macrocytosis SLIGHT = 6-15 cells (100X) (0-5/hpf); Mean Corpuscular HGB CONC 32.7 g/dL (32.0-36.0); Mean Corpuscular Hemoglobin 38.7 pg (27.0-31.0); Mean Platelet Volume 11.4 fL (7.4-10.4); Monocytes 5 % (0-10); Neutrophil 67 % (42-75); Platelet Count 58 thou/uL (130-400); Platelet Morphology Comment Appears Decreased; RBC Distribution Width 14.6 % (11.5-14.5); Red Blood Cell (RBC) Count 3.71 mill/uL (4.70-6.10); White Blood Cell (WBC) Count 9.3 thou/uL (4.8-10.8)
[2019-08-31 06:32] LABS: ALT (SGPT) 111 U/L (8-55); AST (SGOT) 595 U/L (5-34); Albumin 2.3 g/dL (3.4-4.8); Alkaline Phosphatase 237 U/L (40-110); Anion Gap 12 mmol/L (10-20); BUN (Urea Nitrogen) 17 mg/dL (8.4-25.7); Bilirubin, Total 6.7 mg/dL (0.2-1.2); Calc. Creatinine Clearance 100 mL/min (70-130); Calcium 8.2 mg/dL (7.8-10.44); Carbon Dioxide 23 mmol/L (23-31); Chloride 103 mmol/L (98-107); Estimated GFR-MDRD 80; Globulin 3.3 g/dL (2.4-3.5); Glucose 85 mg/dL (80-115); Magnesium 1.9 mg/dL (1.6-2.6); Potassium 3.7 mmol/L (3.5-5.1); Protein, Total 5.6 g/dL (5.8-8.1); Sodium 134 mmol/L (136-145)
[2019-08-31 06:45] LABS: CK (CPK) 7880 U/L (30-200)
[2019-08-31] MEDS: Lactated Ringer's 1,000 ML IV SCH ×5 (07:55→20:16)
[2019-08-31] MEDS ORDERED: Furosemide 20 MG TAB PO SCH ×2 (09:00→11:30)
[2019-08-31] MEDS: Phytonadione 10 MG/ML AMP PO SCH (10:12)
[2019-08-31] MEDS ORDERED: Gadobenate Dimeglumine 529 MG/1 ML (20ML VIAL) ONE (10:30)
[2019-08-31] MEDS: Vancomycin HCl 1.25 GM in Sodium Chloride 0.9% 250 ML 250 ML IVPB SCH (11:12)
--- NOTE | 2019-08-31 12:49 | PDOC.HOSPP ---
- Subjective Encounter Date: 08/31/19 Encounter Time: 12:45 Subjective: 64 y/o male with liver cirrhosis, chronic alcohol abuse, DM, COPD admitted with falls associated with worsening back pain, nausea, vomiting, worsening generalized weakness and hypoxia. Found to have hyperbilirubinemia, elevated troponin, abnormal LFTs, Liver masses, cholelithiasis with gall bladder distension. Initially thought to have cholecystitis but HIDA scan was negative. Feeling better. Tolerating oral intake. No fever, vomiting or change in bowel habit. getting stronger. - Objective Vital Signs & Weight: Vital Signs (12 hours) Temp Pulse Resp BP BP Pulse Ox 08/31/19 10:36 97.8 F 76 16 156/80 H 94 L 08/31/19 08:00 122/83 08/31/19 07:51 98.7 F 90 16 122/83 92 L 08/31/19 04:29 98.4 F 80 20 141/80 H 95 08/31/19 04:00 141/80 H Weight Weight 198 lb 9.6 oz I&O: 08/30/19 08/31/19 09/01/19 06:59 06:59 06:59 Intake Total 250 4916 Output Total 1100 Balance 250 3816 Result Diagrams: 08/31/19 05:12 08/31/19 05:12 Hospitalist ROS - Medication Medications: Active Medications Generic Name Dose Route Start Last Admin Trade Name Freq PRN Reason Stop Dose Admin Furosemide 20 mg 08/31/19 11:30 08/31/19 12:33 Lasix PO 08/31/19 13:30 20 mg NOW MAURICIO Administration Lactated Ringer's 1,000 mls @ 250 mls/hr 08/31/19 08:41 08/31/19 10:12 Lactated Ringer's IV 1,000 mls .Q4H MAURICIO Administration Phytonadione 10 mg 08/31/19 09:00 08/31/19 10:12 Aquamephyton PO 09/02/19 09:01 10 mg DAILY MAURICIO Administration Sodium Chloride 10 ml 08/29/19 09:00 08/31/19 10:13 Flush - Normal Saline IVF Not Given Q12HR MAURICIO - Exam General Appearance: awake alert Eye: PERRL ENT: normocephalic atraumatic Neck: supple, symmetric, no JVD Heart: RRR Respiratory: no wheezes, no rales, no ronchi, normal chest expansion Gastrointestinal: soft, non-tender, normal bowel sounds Gastrointestinal - other findings: mild distension Extremities: 1+ LE edema Neurological: cranial nerve grossly intact, no focal deficits Psychiatric: normal affect, A&O x 3 Hosp A/P (1) Rhabdomyolysis Code(s): M62.82 - RHABDOMYOLYSIS Status: Acute (2) Liver masses Code(s): R16.0 - HEPATOMEGALY, NOT ELSEWHERE CLASSIFIED Status: Acute (3) Hepatocellular carcinoma Code(s): C22.0 - LIVER CELL CARCINOMA Status: Acute (4) Hyperbilirubinemia Code(s): E80.6 - OTHER DISORDERS OF BILIRUBIN METABOLISM Status: Acute (5) COPD (chronic obstructive pulmonary disease) Status: Acute (6) Acute exacerbation of chronic low back pain Code(s): M54.5 - LOW BACK PAIN; G89.29 - OTHER CHRONIC PAIN Status: Acute (7) Recurrent falls Code(s): R29.6 - REPEATED FALLS Status: Acute (8) Coagulopathy Status: Acute (9) Bipolar affective disorder Code(s): F31.9 - BIPOLAR DISORDER, UNSPECIFIED Status: Chronic (10) ETOH abuse Code(s): F10.10 - ALCOHOL ABUSE, UNCOMPLICATED Status: Chronic (11) HTN (hypertension) Code(s): I10 - ESSENTIAL (PRIMARY) HYPERTENSION Status: Chronic Qualifiers: Hypertension type: essential hypertension Qualified Code(s): I10 - Essential (primary) hypertension (12) Hepatitis C Code(s): B19.20 - UNSPECIFIED VIRAL HEPATITIS C WITHOUT HEPATIC COMA Status: Chronic Qualifiers: Viral hepatitis chronicity: chronic Hepatic coma status: without hepatic coma Qualified Code(s): B18.2 - Chronic viral hepatitis C (13) Hx of splenectomy Code(s): Z90.81 - ACQUIRED ABSENCE OF SPLEEN Status: Chronic (14) Liver cirrhosis Code(s): K74.60 - UNSPECIFIED CIRRHOSIS OF LIVER Status: Chronic Qualifiers: Hepatic cirrhosis type: alcoholic cirrhosis Ascites presence: without ascites Qualified Code(s): K70.30 - Alcoholic cirrhosis of liver without ascites (15) Sepsis Code(s): A41.9 - SEPSIS, UNSPECIFIED ORGANISM Status: Ruled-out (16) Elevated troponin Code(s): R79.89 - OTHER SPECIFIED ABNORMAL FINDINGS OF BLOOD CHEMISTRY Status : Acute (17) Cholelithiases Code(s): K80.20 - CALCULUS OF GALLBLADDER W/O CHOLECYSTITIS W/O OBSTRUCTION Status: Acute - Plan Increase IVF rate to 250. Increase lasix to 40 bid Continue Vit K supplementation and monitor INR Follow LFT and CK DC antibiotics as blood cultures are negative. Moreso cholecystitis was ruled out and there is no obvious sepsis. Appreciate GI and surgery input. Increase activity.
[2019-08-31] MEDS: Furosemide 40 MG TAB PO SCH (16:38)
--- NOTE | 2019-08-31 16:49 | PRG ---
DATE OF SERVICE: 08/31/2019 SUBJECTIVE: The patient is alert, lucid, and talkative. He is eating fine. His body pain is improving slowly. He denies any abdominal pain, nausea, or vomiting. PHYSICAL EXAMINATION: VITAL SIGNS: Temperature is 97.8, blood pressure 156/80, and pulse is 76. GENERAL: He is alert, in no distress. HEENT: Shows mildly icteric sclerae. Oropharynx clear and moist. CV: Shows normal S1 and S2. Regular rate and rhythm. CHEST: Shows a breath sounds. ABDOMEN: Soft, mildly protuberant, but no distention. No tenderness. There is a hint of left lobe hepatomegaly. He has active bowel sounds. No bruit. EXTREMITIES: Show 1+ edema. LABORATORY DATA: Electrolytes within normal range. Creatinine 0.95. Bilirubin is 6.7, AST of 595, ALT 111, alkaline phosphatase 237. CK is down to 7880. Alpha-fetoprotein is 3.1. ASSESSMENT: 1. Multiple liver masses on CT concerning for hepatocellular carcinoma in setting of having cirrhosis. Alpha-fetoprotein marker is normal. 2. Cirrhosis from ongoing alcohol abuse and previous hepatitis C, that was treated and cleared. 3. Rhabdomyolysis. 4. Elevation of LFTs, predominantly AST, consistent with rhabdomyolysis. 5. Overall stable from GI standpoint. RECOMMENDATION: MRI of liver with liver mass protocol. Job ID: [id number]
[2019-08-31] MEDS: Nystatin Ointment 15 GM TUBE TOP SCH (22:19)
[2019-09-01] MEDS: Lactated Ringer's 1,000 ML IV SCH ×7 (00:50→23:11)
[2019-09-01] MEDS: Furosemide 40 MG TAB PO SCH ×2 (06:28→16:46)
[2019-09-01 06:33] LABS: INR-International Normal Ratio 1.6; Prothrombin Time 19.2 SEC (12.0-14.7)
[2019-09-01 06:49] LABS: ALT (SGPT) 126 U/L (8-55); AST (SGOT) 614 U/L (5-34); Albumin 2.2 g/dL (3.4-4.8); Alkaline Phosphatase 252 U/L (40-110); Anion Gap 12 mmol/L (10-20); BUN (Urea Nitrogen) 14 mg/dL (8.4-25.7); Band 2 % (5-11); Bilirubin, Total 6.9 mg/dL (0.2-1.2); Calc. Creatinine Clearance 113 mL/min (70-130); Calcium 8.2 mg/dL (7.8-10.44); Carbon Dioxide 22 mmol/L (23-31); Chloride 104 mmol/L (98-107); Estimated GFR-MDRD 90; Globulin 3.6 g/dL (2.4-3.5); Glucose 78 mg/dL (80-115); Lymphocytes 28 % (21-51); MDiff Complete? YES; Mean Corpuscular HGB CONC 33.2 g/dL (32.0-36.0); Mean Corpuscular Hemoglobin 39.2 pg (27.0-31.0); Mean Platelet Volume 10.7 fL (7.4-10.4); Metamyelocyte 1 % (0-0); Monocytes 19 % (0-10); Neutrophil 50 % (42-75); Platelet Count 60 thou/uL (130-400); Platelet Morphology Comment Appears Decreased; Potassium 3.6 mmol/L (3.5-5.1); Protein, Total 5.8 g/dL (5.8-8.1); RBC Distribution Width 14.3 % (11.5-14.5); Red Blood Cell (RBC) Count 3.56 mill/uL (4.70-6.10); Sodium 134 mmol/L (136-145); White Blood Cell (WBC) Count 9.3 thou/uL (4.8-10.8)
[2019-09-01] MEDS ORDERED: Furosemide 40 MG TAB PO SCH (08:00)
[2019-09-01] MEDS: Phytonadione 10 MG/ML AMP PO SCH (08:30)
[2019-09-01] MEDS: Nystatin Ointment 15 GM TUBE TOP SCH ×3 (09:22→20:35)
--- NOTE | 2019-09-01 13:07 | PDOC.HOSPP ---
- Subjective Encounter Date: 09/01/19 Encounter Time: 09:05 Subjective: 64 y/o male with liver cirrhosis, chronic alcohol abuse, DM, COPD admitted with falls associated with worsening back pain, nausea, vomiting, worsening generalized weakness and hypoxia. Found to have hyperbilirubinemia, elevated troponin, abnormal LFTs, Liver masses, cholelithiasis with gall bladder distension. Initially thought to have cholecystitis but HIDA scan was negative. Feeling better. Tolerating oral intake. No fever, vomiting or change in bowel habit. Tolerating oral intake. - Objective Vital Signs & Weight: Vital Signs (12 hours) Temp Pulse Resp BP BP BP Pulse Ox 09/01/19 11:45 99.4 F 83 17 144/79 H 96 09/01/19 08:00 97.4 F L 106 H 22 H 139/83 139/83 92 L 09/01/19 04:00 99.0 F 74 18 169/81 H 169/81 H 93 L Weight Admit Weight 195 lb 4.8 oz Weight 203 lb 9.6 oz I&O: 08/31/19 09/01/19 09/02/19 06:59 06:59 06:59 Intake Total 4916 5306 Output Total 1100 2525 Balance 3816 2781 Result Diagrams: 09/01/19 06:05 09/01/19 06:05 Hospitalist ROS - Medication Medications: Active Medications Generic Name Dose Route Start Last Admin Trade Name Freq PRN Reason Stop Dose Admin Lactated Ringer's 1,000 mls @ 250 mls/hr 08/31/19 08:41 09/01/19 08:30 Lactated Ringer's IV 1,000 mls .Q4H MAURICIO Administration Nystatin 0 gm 08/31/19 21:00 09/01/19 09:22 Mycostatin Ointment TOP 1 applic TID MAURICIO Administration Phytonadione 10 mg 08/31/19 09:00 09/01/19 08:30 Aquamephyton PO 09/02/19 09:01 10 mg DAILY MAURICIO Administration Sodium Chloride 10 ml 08/29/19 09:00 09/01/19 09:23 Flush - Normal Saline IVF Not Given Q12HR MAURICIO - Exam General Appearance: awake alert Eye: anicteric sclera ENT: normocephalic atraumatic, moist mucosa Neck: supple, symmetric, no JVD Heart: RRR Respiratory: no wheezes, no rales, no ronchi, normal chest expansion Gastrointestinal: soft, non-tender, non-distended, normal bowel sounds Extremities: no cyanosis, 1+ LE edema Neurological: cranial nerve grossly intact, no focal deficits Psychiatric: normal affect, A&O x 3 Hosp A/P (1) Rhabdomyolysis Code(s): M62.82 - RHABDOMYOLYSIS Status: Acute (2) Liver masses Code(s): R16.0 - HEPATOMEGALY, NOT ELSEWHERE CLASSIFIED Status: Acute (3) Hepatocellular carcinoma Code(s): C22.0 - LIVER CELL CARCINOMA Status: Acute (4) Hyperbilirubinemia Code(s): E80.6 - OTHER DISORDERS OF BILIRUBIN METABOLISM Status: Acute (5) COPD (chronic obstructive pulmonary disease) Status: Acute (6) Acute exacerbation of chronic low back pain Code(s): M54.5 - LOW BACK PAIN; G89.29 - OTHER CHRONIC PAIN Status: Acute (7) Recurrent falls Code(s): R29.6 - REPEATED FALLS Status: Acute (8) Coagulopathy Status: Acute (9) Bipolar affective disorder Code(s): F31.9 - BIPOLAR DISORDER, UNSPECIFIED Status: Chronic (10) ETOH abuse Code(s): F10.10 - ALCOHOL ABUSE, UNCOMPLICATED Status: Chronic (11) HTN (hypertension) Code(s): I10 - ESSENTIAL (PRIMARY) HYPERTENSION Status: Chronic Qualifiers: Hypertension type: essential hypertension Qualified Code(s): I10 - Essential (primary) hypertension (12) Hepatitis C Code(s): B19.20 - UNSPECIFIED VIRAL HEPATITIS C WITHOUT HEPATIC COMA Status: Chronic Qualifiers: Viral hepatitis chronicity: chronic Hepatic coma status: without hepatic coma Qualified Code(s): B18.2 - Chronic viral hepatitis C (13) Hx of splenectomy Code(s): Z90.81 - ACQUIRED ABSENCE OF SPLEEN Status: Chronic (14) Liver cirrhosis Code(s): K74.60 - UNSPECIFIED CIRRHOSIS OF LIVER Status: Chronic Qualifiers: Hepatic cirrhosis type: alcoholic cirrhosis Ascites presence: without ascites Qualified Code(s): K70.30 - Alcoholic cirrhosis of liver without ascites (15) Elevated troponin Code(s): R79.89 - OTHER SPECIFIED ABNORMAL FINDINGS OF BLOOD CHEMISTRY Status : Acute (16) Cholelithiases Code(s): K80.20 - CALCULUS OF GALLBLADDER W/O CHOLECYSTITIS W/O OBSTRUCTION Status: Acute (17) Nephrolithiasis Status: Acute (18) Pediculosis Code(s): B85.2 - PEDICULOSIS, UNSPECIFIED Status: Acute - Plan Continue IVF. Decrease lasix to 20 bid Continue Vit K supplementation and monitor INR Follow LFT and CK Appreciate GI and surgery input. Increase activity. Awaiting MRI of the liver.
--- NOTE | 2019-09-01 13:58 | MRI ---
EXAM: MRI of the abdomen without and with contrast COMPARISON: CT abdomen/pelvis 08/28/2019 HISTORY: Liver masses seen on CT TECHNIQUE: Multiplanar multi sequence MR images were taken of the abdomen without and with IV contras t. [An MRCP was performed.] FINDINGS: This exam is limited secondary to significant respiratory motion artifact. Liver: The liver is slightly nodular consistent with cirrhosis. The lesions seen on CT can barely be visualized given the significant motion artifact. The 4.8 cm lesion in the right lobe of the liver demonstrates high T1 signal and is more easily seen on the noncontrast examination and becomes more d ifficult to see after the administration of contrast. The 2 peripheral lesions in the anterior left lobe of the liver are best seen on the arterial phase images and become isointense on the delayed pha se images. None of these lesions demonstrates washout and none of the lesions demonstrate significant high T2 signal. Gallbladder: Multiple small gallstones. Contracted gallbladder with a small amount of pericholecystic fluid. Common bile duct: Normal caliber without filling defects Adrenal glands: Unremarkable. Kidneys: Nonenhancing well-circumscribed foci of high T2 signal in the bilateral kidneys measuring up to 1.1 cm. No abnormal areas of enhancement. Spleen: Unremarkable. Pancreas: Unremarkable. No abnormal enhancement. Retroperitoneum: No enlarged lymph nodes Bones: No marrow signal abnormality. IMPRESSION: 1. Lesions in the liver are nonspecific but do not have findings on MRI consistent with hepatocellula r carcinoma. Recommend either close interval follow-up or biopsy if possible. 2. Cholelithiasis 3. Bilateral renal cysts
[2019-09-02] MEDS: Lactated Ringer's 1,000 ML IV SCH ×4 (03:17→11:56)
[2019-09-02] MEDS: Furosemide 40 MG TAB PO SCH ×2 (06:19→16:49)
[2019-09-02 06:40] LABS: INR-International Normal Ratio 1.7; Prothrombin Time 19.7 SEC (12.0-14.7)
[2019-09-02 06:50] LABS: Hemoglobin 13.8 g/dL (14.0-18.0); Mean Corpuscular HGB CONC 33.6 g/dL (32.0-36.0); Mean Corpuscular Hemoglobin 39.8 pg (27.0-31.0); Mean Platelet Volume 10.9 fL (7.4-10.4); Platelet Count 62 thou/uL (130-400); RBC Distribution Width 14.4 % (11.5-14.5); Red Blood Cell (RBC) Count 3.45 mill/uL (4.70-6.10); White Blood Cell (WBC) Count 9.5 thou/uL (4.8-10.8)
[2019-09-02 06:59] LABS: ALT (SGPT) 128 U/L (8-55); AST (SGOT) 536 U/L (5-34); Albumin 2.3 g/dL (3.4-4.8); Alkaline Phosphatase 253 U/L (40-110); Anion Gap 10 mmol/L (10-20); BUN (Urea Nitrogen) 14 mg/dL (8.4-25.7); Bilirubin, Total 7.7 mg/dL (0.2-1.2); CK (CPK) 3733 U/L (30-200); Calc. Creatinine Clearance 103 mL/min (70-130); Calcium 8.2 mg/dL (7.8-10.44); Carbon Dioxide 28 mmol/L (23-31); Chloride 101 mmol/L (98-107); Estimated GFR-MDRD 80; Globulin 3.3 g/dL (2.4-3.5); Glucose 79 mg/dL (80-115); Potassium 3.1 mmol/L (3.5-5.1); Protein, Total 5.6 g/dL (5.8-8.1); Sodium 136 mmol/L (136-145)
[2019-09-02 07:47] LABS: Band 6 % (5-11); Lymphocytes 22 % (21-51); MDiff Complete? YES; Macrocytosis MARKED = >30 cells (100X) (0-5/hpf); Monocytes 7 % (0-10); Neutrophil 56 % (42-75); Platelet Morphology Comment Appears Decreased; Polychromasia SLIGHT = 2-3 cells (100X) (0-2/hpf); Reactive Lymphocytes 8 % (0-10); Target Cells MODERATE= 6-15 cells (100X) (0-1/hpf)
[2019-09-02] MEDS: Potassium Chloride 20 MEQ TAB PO SCH ×2 (09:06→11:54)
[2019-09-02] MEDS: Nystatin Ointment 15 GM TUBE TOP SCH ×3 (09:07→21:13)
[2019-09-02] MEDS: Phytonadione 10 MG/ML AMP PO SCH (09:07)
--- NOTE | 2019-09-02 11:09 | PRG ---
DATE OF SERVICE: 09/02/2019 SUBJECTIVE: The patient overall feels better. He still has back pain from the fall. He is tolerating regular diet. There is no nausea, vomiting, or abdominal pain. OBJECTIVE: VITAL SIGNS: Temperature is 99.5, blood pressure 127/60, pulse of 95. GENERAL: He is asleep, but awakens easily, in no distress. HEENT: Shows sclerae are anicteric, but slightly muddy. Oropharynx is clear and moist. CV: Shows normal S1 and S2. Regular rate and rhythm. CHEST: Shows breath sounds. ABDOMEN: Mildly protuberant, but no tympany or distention. He has active bowel sounds. No tenderness. EXTREMITIES: Exam shows 1+ edema. LABORATORY DATA: WBCs 9.5, hemoglobin 13.8, platelet count of 62,000. Electrolytes within normal range except potassium 3.1, chloride 95, bilirubin 7.7, AST 536, ALT 128, alkaline phosphatase 253. MRI with liver mass protocol showed indeterminate lesions in liver without T2 signals, not consistent with hepatocellular carcinoma. ASSESSMENT: 1. Liver masses on CT, likely regenerative nodules. MRI findings do not show any characteristic of hepatocellular carcinoma. His alpha-fetoprotein level is normal. 2. Cirrhosis from ongoing alcohol abuse and previously treated hepatitis C that was cleared. 3. Rhabdomyolysis. 4. Persistent elevation of bilirubin and predominantly AST, consistent with rhabdomyolysis. RECOMMENDATIONS: 1. Repeat MRI of the liver in 6 months. 2. Otherwise, overall stable from GI standpoint without any active issue. Please call GI Service if needed. 3. The patient can follow up in our GI Clinic after discharge. Job ID: [id number]
--- NOTE | 2019-09-02 13:34 | PDOC.HOSPP ---
- Subjective Encounter Date: 09/02/19 Encounter Time: 10:32 Subjective: 64 y/o male with liver cirrhosis, chronic alcohol abuse, DM, COPD admitted with falls associated with worsening back pain, nausea, vomiting, worsening generalized weakness and hypoxia. Found to have hyperbilirubinemia, elevated troponin, abnormal LFTs, Liver masses, cholelithiasis with gall bladder distension. Initially thought to have cholecystitis but HIDA scan was negative. Feeling better. Tolerating oral intake. Comnplains of cough. Denied SOB, fever, vomiting or change in bowel habit. - Objective Vital Signs & Weight: Vital Signs (12 hours) Temp Pulse Resp BP BP BP Pulse Ox 09/02/19 11:50 144/87 H 09/02/19 11:48 100.1 F H 85 21 H 144/87 H 96 09/02/19 09:15 127/60 99 09/02/19 09:00 99.5 F 95 127/60 99 09/02/19 08:00 27 H 09/02/19 04:00 163/85 H 09/02/19 03:19 99.5 F 84 16 163/85 H 92 L Weight Admit Weight 195 lb 4.8 oz Weight 205 lb 9.6 oz I&O: 09/01/19 09/02/19 09/03/19 06:59 06:59 06:59 Intake Total 5306 6120 236 Output Total 2525 1725 Balance 2781 4395 236 Result Diagrams: 09/02/19 06:05 09/02/19 06:05 Hospitalist ROS - Medication Medications: Active Medications Generic Name Dose Route Start Last Admin Trade Name Freq PRN Reason Stop Dose Admin Furosemide 20 mg 09/01/19 17:00 09/02/19 06:19 Lasix PO 20 mg 0600,1700 MAURICIO Administration Nystatin 0 gm 08/31/19 21:00 09/02/19 09:07 Mycostatin Ointment TOP Not Given TID MAURICIO Sodium Chloride 10 ml 08/29/19 09:00 09/02/19 09:07 Flush - Normal Saline IVF Not Given Q12HR MAURICIO - Exam General Appearance: awake alert Eye: anicteric sclera ENT: normocephalic atraumatic Neck: symmetric, no JVD Heart: RRR Respiratory: no rales, no ronchi Respiratory - other findings: fair air entry bilaterally Gastrointestinal: soft, non-tender, non-distended, normal bowel sounds Extremities - other findings: moderate bilateral leg edema. No erythema Neurological: cranial nerve grossly intact, no focal deficits Psychiatric: normal affect, A&O x 3 Hosp A/P (1) Rhabdomyolysis Code(s): M62.82 - RHABDOMYOLYSIS Status: Acute (2) Liver masses Code(s): R16.0 - HEPATOMEGALY, NOT ELSEWHERE CLASSIFIED Status: Acute (3) Hepatocellular carcinoma Code(s): C22.0 - LIVER CELL CARCINOMA Status: Suspected (4) Hyperbilirubinemia Code(s): E80.6 - OTHER DISORDERS OF BILIRUBIN METABOLISM Status: Acute (5) COPD (chronic obstructive pulmonary disease) Status: Chronic (6) Acute exacerbation of chronic low back pain Code(s): M54.5 - LOW BACK PAIN; G89.29 - OTHER CHRONIC PAIN Status: Acute (7) Recurrent falls Code(s): R29.6 - REPEATED FALLS Status: Acute (8) Coagulopathy Status: Acute (9) Bipolar affective disorder Code(s): F31.9 - BIPOLAR DISORDER, UNSPECIFIED Status: Chronic (10) ETOH abuse Code(s): F10.10 - ALCOHOL ABUSE, UNCOMPLICATED Status: Chronic (11) HTN (hypertension) Code(s): I10 - ESSENTIAL (PRIMARY) HYPERTENSION Status: Chronic Qualifiers: Hypertension type: essential hypertension Qualified Code(s): I10 - Essential (primary) hypertension (12) Hepatitis C Code(s): B19.20 - UNSPECIFIED VIRAL HEPATITIS C WITHOUT HEPATIC COMA Status: Chronic Qualifiers: Viral hepatitis chronicity: chronic Hepatic coma status: without hepatic coma Qualified Code(s): B18.2 - Chronic viral hepatitis C (13) Hx of splenectomy Code(s): Z90.81 - ACQUIRED ABSENCE OF SPLEEN Status: Chronic (14) Liver cirrhosis Code(s): K74.60 - UNSPECIFIED CIRRHOSIS OF LIVER Status: Chronic Qualifiers: Hepatic cirrhosis type: alcoholic cirrhosis Ascites presence: without ascites Qualified Code(s): K70.30 - Alcoholic cirrhosis of liver without ascites (15) Elevated troponin Code(s): R79.89 - OTHER SPECIFIED ABNORMAL FINDINGS OF BLOOD CHEMISTRY Status : Acute (16) Cholelithiases Code(s): K80.20 - CALCULUS OF GALLBLADDER W/O CHOLECYSTITIS W/O OBSTRUCTION Status: Acute (17) Nephrolithiasis Status: Acute (18) Pediculosis Code(s): B85.2 - PEDICULOSIS, UNSPECIFIED Status: Acute (19) Volume overload Code(s): E87.70 - FLUID OVERLOAD, UNSPECIFIED Status: Acute (20) Hypokalemia Code(s): E87.6 - HYPOKALEMIA Status: Acute - Plan Replete serum potassium DC IVF. Continue lasix to 20 bid Continue Vit K supplementation and monitor INR Follow LFT and CK Appreciate GI and surgery input.
[2019-09-03] MEDS: Furosemide 40 MG TAB PO SCH (06:00)
[2019-09-03 06:01] LABS: INR-International Normal Ratio 1.7; Prothrombin Time 20.1 SEC (12.0-14.7)
[2019-09-03 06:18] LABS: Band 1 % (5-11); Lymphocytes 17 % (21-51); MDiff Complete? YES; Macrocytosis MODERATE=16-30 cells (100X) (0-5/hpf); Mean Corpuscular HGB CONC 32.7 g/dL (32.0-36.0); Mean Corpuscular Hemoglobin 38.9 pg (27.0-31.0); Mean Platelet Volume 10.6 fL (7.4-10.4); Monocytes 26 % (0-10); Neutrophil 56 % (42-75); Platelet Count 65 thou/uL (130-400); Platelet Morphology Comment Appears Decreased; RBC Distribution Width 14.6 % (11.5-14.5); Red Blood Cell (RBC) Count 3.34 mill/uL (4.70-6.10); Target Cells SLIGHT = 2-5 cells (100X) (0-1/hpf); White Blood Cell (WBC) Count 7.2 thou/uL (4.8-10.8)
[2019-09-03 06:24] LABS: ALT (SGPT) 116 U/L (8-55); AST (SGOT) 432 U/L (5-34); Albumin 2.1 g/dL (3.4-4.8); Alkaline Phosphatase 231 U/L (40-110); Anion Gap 9 mmol/L (10-20); BUN (Urea Nitrogen) 16 mg/dL (8.4-25.7); Bilirubin, Total 7.2 mg/dL (0.2-1.2); CK (CPK) 1628 U/L (30-200); Calc. Creatinine Clearance 80 mL/min (70-130); Calcium 8.4 mg/dL (7.8-10.44); Carbon Dioxide 28 mmol/L (23-31); Chloride 102 mmol/L (98-107); Estimated GFR-MDRD 60; Globulin 3.1 g/dL (2.4-3.5); Glucose 119 mg/dL (80-115); Magnesium 1.4 mg/dL (1.6-2.6); Potassium 3.2 mmol/L (3.5-5.1); Protein, Total 5.2 g/dL (5.8-8.1); Sodium 136 mmol/L (136-145)
--- NOTE | 2019-09-03 08:36 | RAD ---
XR Chest Pa Lat STANDARD HISTORY: Cough, low-grade fever COMPARISON: 05/25/2019 FINDINGS: The heart size is normal. The lungs are well expanded without focal areas of consolidation, pneumothorax or pleural effusions. There are mild degenerative changes in the spine. IMPRESSION: No radiographic evidence of acute cardiopulmonary process.
[2019-09-03] MEDS: Potassium Chloride 20 MEQ TAB PO SCH ×3 (09:20→14:53)
--- NOTE | 2019-09-03 09:33 | PDOC.EVN ---
Event Note - Event Note Event Note: Discharge summary dictated. #[id number]
--- NOTE | 2019-09-03 10:03 | DIS ---
DATE OF ADMISSION: 08/29/2019 DATE OF DISCHARGE: 09/03/2019 PRIMARY CARE PROVIDER: [facility]. DISCHARGE DIAGNOSES: 1. Rhabdomyolysis. 2. Liver masses. 3. Suspected hepatocellular carcinoma. 4. Hyperbilirubinemia. 5. Acute exacerbation of chronic low back pain. 6. Recurrent falls. 7. Coagulopathy. 8. Liver cirrhosis. 9. Chronic alcohol abuse. 10. Bipolar affective disorder. 11. Hypertension. 12. Hepatitis C infection, status post treatment. 13. History of splenectomy. 14. Elevated troponin. 15. Cholelithiasis without acute cholecystitis. 16. Nephrolithiasis without obstruction. 17. Pediculosis. 18. Volume overload. 19. Hypokalemia. 20. Physical deconditioning. CONSULTS: 1. General Surgery. 2. Gastroenterology. HOSPITAL COURSE: A 64-year-old male with known history of liver cirrhosis, chronic alcohol abuse, COPD, and others, admitted due to worsening back pain associated with nausea, vomiting, generalized weakness, and hypoxia. The patient reportedly had two falls in the last 2 days prior to presentation. Evaluation with CT scan showed cholelithiasis with gallbladder dilatation as well as suggestive of possible cholecystitis. The patient was started on broad-spectrum antibiotics. Further evaluation with HIDA scan, however, was negative for cholecystitis. The patient also was found to have elevated bilirubin and abnormal liver enzymes as well as multiple liver masses concerning for hepatocellular cancer. GI consult was obtained the patient has elevated CK, suggestive of rhabdomyolysis, abnormal liver enzymes were thought to be from rhabdomyolysis. Further evaluation with MRI, however, was inconclusive and was not suggestive of hepatocellular cancer. Alpha fetoprotein obtained was also unremarkable. GI recommended interval repeat of MRI in 6 months. The patient was treated with IV fluid for rhabdomyolysis with improvement in both CPK level and liver enzymes. The patient also received vitamin K for coagulopathy with improvement in INR levels. The patient also received physical therapy for chronic back pain and physical deconditioning with improvement such that he was ambulating at the time of discharge. Of note at presentation, the patient had bleeding from the genital area and he was also found to have hair lice and possible genital lice as well as genital Lissa infection. The patient was treated for pediculosis and also for genital candidiasis with improvement. Bleeding resolved. Hospital course was however complicated by development of bilateral leg swelling, hence IV fluid was discontinued and the patient was started on diuretics. He also had hypokalemia, which was treated appropriately. The patient improved and was ambulating and was subsequently discharged to home to follow up with PCP and Gastroenterology. PHYSICAL EXAMINATION: VITAL SIGNS: Temperature 99.8, pulse 78, respiratory rate 16, SpO2 of 92 on room air, blood pressure is 134/74. GENERAL: Male patient, in no obvious distress. Afebrile. Anicteric. Acyanotic. HEENT: Normocephalic and atraumatic. Oral mucosa is moist. CARDIOVASCULAR: Regular rhythm and rate with normal heart sounds one and two. RESPIRATORY: Good air entry bilaterally with few transmitted breath sounds. No use of accessory muscles or crackles appreciated. GI: Full, soft, nontender, nondistended with normal bowel sounds. EXTREMITIES: [id number] bilateral leg edema noted. No obvious erythema appreciated. 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 Cranial nerves 2 through 12 are grossly intact. The patient is ambulant. DISCHARGE CONDITION: Improved. DISCHARGE DISPOSITION: Home. DISCHARGE MEDICATIONS: 1. Protonix 40 mg p.o. daily. 2. Vitamin B12, 1000 mcg p.o. daily. 3. Folic acid 1 mg p.o. daily. 4. Lasix 20 mg p.o. daily. 5. Multivitamin with minerals 1 tablet p.o. daily. 6. Nadolol 20 mg p.o. daily. 7. Nystatin ointment t.i.d. to the genital area. 8. Spironolactone 50 mg p.o. daily. 9. Thiamine 100 mg p.o. daily. TIME SPENT: This discharge took more than 37 minutes. Job ID: [id number]
[2019-09-03] MEDS: Nystatin Ointment 15 GM TUBE TOP SCH (12:15)
[2019-09-03 15:18] VITALS: BMI 29.9
[2019-09-03 17:50] VITALS: BP 133/71; TEMP 98.7
== END 2019-09-03 17:45 | disposition home or self-care (01) | DRG 558 ==
LOC: ERS 20:50 → 2NO 08-29 02:18
PROVIDERS: ADMIT Internal Medicine; ATTEND Internal Medicine
DX: M62.82 Rhabdomyolysis (principal); B37.49 Other urogenital candidiasis; D68.4 Acquired coagulation factor deficiency; F10.188 Alcohol abuse with other alcohol-induced disorder; G89.29 Other chronic pain; B19.20 Unspecified viral hepatitis C without hepatic coma; I10 Essential (primary) hypertension; J44.9 Chronic obstructive pulmonary disease, unspecified; M54.5 Low back pain; B18.2 Chronic viral hepatitis C; F31.9 Bipolar disorder, unspecified; K70.30 Alcoholic cirrhosis of liver without ascites; R09.02 Hypoxemia; R60.0 Localized edema; E83.42 Hypomagnesemia; N20.0 Calculus of kidney; E88.09 Other disorders of plasma-protein metabolism, not elsewhere classified; R79.89 Other specified abnormal findings of blood chemistry; E87.6 Hypokalemia; Z87.891 Personal history of nicotine dependence; Z98.890 Other specified postprocedural states; Z79.899 Other long term (current) drug therapy; Z90.49 Acquired absence of other specified parts of digestive tract
CPT/HCPCS: 36415; 70450; 71046; 71260; 72125; 74177; 74183; 76705; 78226; 80053; 80202; 80306; 80307; 81003; 81015; 82105; 82140; 82274; 82550; 82553; 83605; 83690; 83735; 83880; 84484; 85025; 85610; 85730; 87040; 90471; 90670; 93005; 93306; 96365; 96367; 96375; A9537; G0009; J1940; J2270; J2543; J3370; J3430; J3475; J3490; J7050; Q9966

== ENCOUNTER 2019-09-24 20:22 | Emergency (ER) | payer OTHER, MEDICAID ==
--- NOTE | 2019-09-24 21:23 | RAD ---
Chest one view HISTORY: Heart failure. Dyspnea. COMPARISON: 06/18/2019. FINDINGS: Cardiac silhouette is magnified by projection. Pulmonary vasculature upper limits of normal with patchy bibasilar infiltrates. Mediastinum is midline. No lobar consolidation or evidence of pneumothorax. IMPRESSION: Patchy bibasilar infiltrates may be related to borderline pulmonary vascular congestion/e varun.
[2019-09-24 21:48] LABS: Hemoglobin 12.9 g/dL (14.0-18.0); Mean Corpuscular HGB CONC 33.4 g/dL (32.0-36.0); Mean Corpuscular Hemoglobin 39.6 pg (27.0-31.0); Mean Platelet Volume 9.5 fL (7.4-10.4); Platelet Count 84 thou/uL (130-400); RBC Distribution Width 14.2 % (11.5-14.5); Red Blood Cell (RBC) Count 3.25 mill/uL (4.70-6.10); White Blood Cell (WBC) Count 8.6 thou/uL (4.8-10.8)
[2019-09-24 22:04] LABS: Lymphocytes 45 % (21-51); MDiff Complete? YES; Monocytes 17 % (0-10); Neutrophil 38 % (42-75); Platelet Morphology Comment Appears Decreased
[2019-09-24 22:05] LABS: ALT (SGPT) 30 U/L (8-55); AST (SGOT) 66 U/L (5-34); Albumin 2.7 g/dL (3.4-4.8); Alkaline Phosphatase 217 U/L (40-110); Anion Gap 11 mmol/L (10-20); BUN (Urea Nitrogen) 8 mg/dL (8.4-25.7); Bilirubin, Total 4.8 mg/dL (0.2-1.2); Calc. Creatinine Clearance 0 mL/min (70-130); Calcium 8.5 mg/dL (7.8-10.44); Carbon Dioxide 28 mmol/L (23-31); Chloride 101 mmol/L (98-107); Estimated GFR-MDRD 87; Globulin 4.2 g/dL (2.4-3.5); Glucose 97 mg/dL (80-115); Potassium 3.5 mmol/L (3.5-5.1); Protein, Total 6.9 g/dL (5.8-8.1); Sodium 136 mmol/L (136-145)
[2019-09-24] MEDS ORDERED: Furosemide 40 MG/4 ML VIAL ONE ×2 (23:25→23:26)
== END 2019-09-24 23:42 | disposition home or self-care (01) ==
LOC: ERS 20:22
DX: I11.0 Hypertensive heart disease with heart failure (principal); I50.9 Heart failure, unspecified; J44.9 Chronic obstructive pulmonary disease, unspecified; Z87.891 Personal history of nicotine dependence; Z79.899 Other long term (current) drug therapy
CPT/HCPCS: 71045; 80053; 83880; 84484; 85025; 93005; 96374; J1940

== ENCOUNTER 2020-03-10 16:22 | Inpatient (IN) | payer MEDICAID, OTHER ==
[2020-03-10] MEDS ORDERED: Multivitamins, Adult 10 ML, Thiamine HCl 100 MG, Folic Acid 1 MG in Dextrose 5 %-0.45 %... IV SCH (17:15)
[2020-03-10 17:44] LABS: Hemoglobin 12.2 g/dL (14.0-18.0); Mean Corpuscular Hemoglobin 40.7 pg (27.0-31.0); Mean Platelet Volume 11.4 fL (7.4-10.4); Platelet Count 67 thou/uL (130-400); White Blood Cell (WBC) Count 11.8 thou/uL (4.8-10.8)
--- NOTE | 2020-03-10 17:45 | RAD ---
PORTABLE CHEST ONE VIEW: 03/10/20 at 4:45 p.m. HISTORY: Generalized weakness, altered mental status. COMPARISON: 09/24/19. FINDINGS: The heart size is borderline. The lungs are expanded without lobar consolidation, pneumothoraces, fra nk pulmonary edema or pleural effusions. IMPRESSION: No acute process. POS: HAILEYA
--- NOTE | 2020-03-10 17:54 | CT ---
CT HEAD WITHOUT CONTRAST: 03/10/20 INDICATIONS: Mental status change. COMPARISON: Comparison made to head CT dated 08/28/19. FINDINGS: Mild cortical volume loss is again noted. The ventricles have normal size and position. There is no e vidence of intracranial mass, hemorrhage or infarct. Sinuses and mastoids are clear. IMPRESSION: No acute process. POS: AGW
[2020-03-10] MEDS ORDERED: cefTRIAXone\\ROCEPHIN 2 GM VIAL ONE (17:57)
[2020-03-10 17:58] LABS: Alcohol Less than 10 mg/dL (Less than 10); Salicylate Less than 8.0 mg/dL (15.0-30.0)
[2020-03-10] MEDS ORDERED: Dexamethasone 10 MG/ML VIAL ONE (17:58)
[2020-03-10 17:59] LABS: ALT (SGPT) 122 U/L (8-55); AST (SGOT) 477 U/L (5-34); Albumin 2.3 g/dL (3.4-4.8); Alkaline Phosphatase 189 U/L (40-110); Anion Gap 18 mmol/L (10-20); BUN (Urea Nitrogen) 20 mg/dL (8.4-25.7); Bilirubin, Total 14.9 mg/dL (0.2-1.2); Calc. Creatinine Clearance 0 mL/min (70-130); Calcium 8.8 mg/dL (7.8-10.44); Carbon Dioxide 18 mmol/L (23-31); Chloride 100 mmol/L (98-107); Estimated GFR-MDRD 57; Globulin 3.4 g/dL (2.4-3.5); Glucose 95 mg/dL (80-115); Lipase 9 U/L (8-78); Potassium 4.4 mmol/L (3.5-5.1); Protein, Total 5.7 g/dL (5.8-8.1); Sodium 132 mmol/L (136-145)
[2020-03-10 18:00] LABS: Anisocytosis SLIGHT = 6-15 cells (100X) (0-5/hpf); Band 26 % (5-11); Lymphocytes 6 % (21-51); MDiff Complete? YES; Macrocytosis MODERATE=16-30 cells (100X) (0-5/hpf); Metamyelocyte 6 % (0-0); Monocytes 5 % (0-10); Neutrophil 57 % (42-75); Platelet Morphology Comment Appears Decreased; Polychromasia SLIGHT = 2-3 cells (100X) (0-2/hpf); Target Cells SLIGHT = 2-5 cells (100X) (0-1/hpf)
[2020-03-10 18:15] LABS: CK (CPK) 4439 U/L (30-200)
[2020-03-10] MEDS ORDERED: Vancomycin 1 GM/200 ML BAG ONE (18:16)
[2020-03-10] MEDS ORDERED: Norepinephrine 8 MG/0.9% NS 250 ML ONE (18:29)
[2020-03-10 18:31] LABS: CKMB 9.9 ng/mL (0-6.6)
--- NOTE | 2020-03-10 19:22 | RAD ---
ONE VIEW CHEST: 03/10/20 HISTORY: Central line placement. COMPARISON: 03/10/20 at 1645 hours. FINDINGS: There has been interval placement of a left subclavian central venous catheter with tip overlying the expected location of the proximal SVC. No pneumothorax or pleural effusion is seen. Cardiac silhouet te is magnified by projection. Pulmonary vasculature is within normal limits. No consolidation or def inite pleural fluid is seen. Right lateral costophrenic angle is excluded from view. IMPRESSION: Interval placement of a left subclavian central venous catheter without evidence of a pneumothorax. POS: TOBI
[2020-03-10] MEDS ORDERED: Ondansetron ODT 4 MG TAB PO PRN (19:29)
[2020-03-10] MEDS ORDERED: Ondansetron PF 4 MG/2 ML Vial IVP PRN (19:29)
[2020-03-10] MEDS ORDERED: Lorazepam 2 MG/ML VIAL SLOW IVP PRN (19:45)
[2020-03-10] MEDS ORDERED: Norepinephrine 8 MG/0.9% NS 250 ML IVPB SCH (19:45)
--- NOTE | 2020-03-10 20:34 | HP ---
PRIMARY CARE PROVIDER: Opal Bill at [place], [place]. CHIEF COMPLAINT: Found down. HISTORY OF PRESENT ILLNESS: This is a 64-year-old male, who initially presented to [facility] in transport by EMS personnel after they were alerted to the patient's home by the patient's brother, who is the patient's medical power of estate attorney. The patient states he has been unable to care for himself, minimally ambulatory, and not eating in the last 3 days. The patient states he has increased weakness of his thighs and has had difficulty standing up. The patient with longstanding history of alcohol abuse with associated hepatic cirrhosis with a history of polysubstance abuse in the past including cocaine, heroin, and marijuana. The patient was apparently found in feces, lying on the floor in his home with multiple beer cans strewn about the house and yard. The patient's landlord apparently alerted the patient's brother, who lives in the [facility], of the condition of the patient, at which point, the brother notified EMS personnel. The patient was evaluated in the emergency room and noted to be disheveled, covered in feces, and malodorous. The patient's workup revealed evidence of sepsis with elevated lactic acid level as well as bandemia concerning for infectious process. The patient was also noted with transaminitis and rhabdomyolysis, at which point, the patient received fluid resuscitation per protocol and initiated on Levophed. The patient was hypotensive and given IV vancomycin, Rocephin, Decadron, and a banana bag. The patient underwent central line placement in the left subclavian distribution. PAST MEDICAL HISTORY: 1. Alcohol abuse. 2. Hepatic cirrhosis secondary to alcohol abuse. 3. Hypertension. 4. Chronic back pain. 5. Chronic hepatitis C. 6. Polysubstance abuse. 7. History of hepatic encephalopathy. 8. Bipolar disorder. 9. Medication noncompliance. 10. Physical deconditioning. PAST SURGICAL HISTORY: 1. Status post splenectomy. 2. Status post left arm surgery. CURRENT MEDICATIONS: Based on review of electronic medical record; 1. Protonix 40 mg p.o. daily. 2. Vitamin B12 of 1000 mcg p.o. daily. 3. Folic acid 1 mg p.o. daily. 4. Lasix 20 mg p.o. daily. 5. Multivitamin 1 tablet p.o. daily. 6. Spironolactone 50 mg p.o. daily. 7. Thiamine 100 mg p.o. daily. List will need to be confirmed with family members. ALLERGIES: NO KNOWN DRUG ALLERGIES. FAMILY HISTORY: Positive for hypertension and diabetes. Father with prostate cancer. SOCIAL HISTORY: Lives independently in the [place], [place] area. Remote tobacco use. Positive alcohol use, quantity unknown with history of alcoholism. History of polysubstance abuse in the past. Minimally ambulatory with recent falls at home. REVIEW OF SYSTEMS: CONSTITUTIONAL: Negative for weight loss or gain, ability to conduct usual activities. SKIN: Negative for rash, itching. EYES: Negative for double vision, pain. ENT/MOUTH: Negative for nose bleeding, neck stiffness, pain, tenderness. CARDIOVASCULAR: Negative for palpitations, dyspnea on exertion, orthopnea. RESPIRATORY: Negative for shortness of breath, wheezing, cough, hemoptysis, fever or night sweats. GASTROINTESTINAL: Negative for poor appetite, abdominal pain, heartburn, nausea, vomiting, constipation, or diarrhea. GENITOURINARY: Negative for urgency, frequency, dysuria, nocturia. MUSCULOSKELETAL: Negative for pain, swelling. NEUROLOGIC/PSYCHIATRIC: Negative for anxiety, depression. ALLERGY/IMMUNOLOGIC: Negative for skin rash, bleeding tendency. Otherwise negative except as stated per HPI. PHYSICAL EXAMINATION: VITAL SIGNS: On admission, blood pressure 77/53, pulse 99, respiratory rate 22, temperature 98.6 degrees Fahrenheit, O2 saturation 96% on room air. GENERAL APPEARANCE: This is a 64-year-old male, alert and oriented x2, pleasant, responsive, in mild distress. HEENT: Pupils are equal, round, reactive to light and accommodation. Extraocular muscles are intact. Bilateral scleral icterus noted. Nares patent. OP is clear. Oral mucosa dry. NECK: Supple. No cervical adenopathy. No thyromegaly. No carotid bruits. No JVD appreciated. Cervical spine with full active and passive range of motion. No meningeal signs noted. CHEST: Diminished breath sounds in the bases bilaterally. CARDIOVASCULAR: S1 and S2 with tachycardia. No murmur, rub, or gallop appreciated. Left upper chest wall with left subclavian central venous catheter in place with pooled blood under the Biosite dressing. ABDOMEN: Protuberant with bowel sounds positive in all 4 quadrants. No palpable mass. No rebound or guarding appreciated. No fluid wave. EXTREMITIES: Warm and dry with fair turgor. Multiple excoriations of the knees and shins. No asymmetric edema appreciated. Pulses palpable distally at the dorsalis pedis, posterior tibial, and popliteal arteries bilaterally. Capillary refill less than 2 seconds. NEUROLOGIC: Cranial nerves 2 through 12 are grossly intact. Alert and orient x2. Not observed ambulatory during the exam. Follows commands. PERTINENT LABORATORY AND X-RAY FINDINGS: Sodium 132, potassium 4.4, chloride 100, CO2 of 18, BUN 20, creatinine 1.27, estimated GFR 57, glucose 95, lactic acid level 6.7, calcium 8.8, total bilirubin 14.9, AST 477, ALT 122, alkaline phosphatase 189. Serum ammonia level 45, total CK 4439, troponin I 0.923. Albumin 2.3. Lipase 9. TSH 0.68. CBC showed a white blood cell count of 11.8, hemoglobin 12.2, hematocrit 37.1, MCV 124 with platelet count of 67, 57% neutrophils, 26% bands. Urine drug screen showed a plasma alcohol level less than 10. CT of the brain without contrast dated 03/10/2020 showed no acute intracranial process. Portable chest x-ray dated 03/10/2020 by my interpretation shows left subclavian central venous catheter in appropriate positioning. No pneumothorax noted. Telemetry monitoring shows sinus tachycardia with heart rates in the 120s. ASSESSMENT AND PLAN: 1. Sepsis with septic shock. The patient will be admitted to the Critical Care Unit. We will continue IV fluids at 100 mL/h. Vasopressor support as needed with Levophed. Continue cefepime 2 g IV q.12 hours with additional vancomycin 1 g IV q.12 hours. Serial lactic acid monitoring per protocol. Blood and urine cultures pending. 2. Metabolic encephalopathy. Suspect multifactorial including history of cirrhosis in addition to sepsis. Continue management as outlined in #1. CT of the brain negative. 3. [id number] myocardial infarction type 2. Suspect demand ischemic state given the patient's sepsis presentation. Continue to trend troponin I. Consider Cardiology evaluation after stabilization. Check 2D transthoracic echocardiogram for wall motion abnormalities and assess ejection fraction. 4. Hepatic cirrhosis. Chronic and longstanding. Continue serial LFT monitoring. Multivitamin, thiamine, and folate. 5. Coagulopathy secondary to hepatic cirrhosis. Six pack of platelets given in the emergency room. Add 2 units of FFP. Serial CBC monitoring. Avoid aspirin and anticoagulation. 6. Rhabdomyolysis. Acute on chronic after review of electronic medical record. Avoid statin agents. Continue IV fluids as outlined previously. Monitor total CPK trend. 7. Deconditioning/fall. PT evaluation in the a.m. Consult Case Management for disposition planning and potential correction placement. Fall risk precautions. 8. Prophylaxis. SCDs while in bed. Pepcid 20 mg p.o. b.i.d. 9. Code status is full. Surrogate medical decision maker is the patient's brother, Dain Cosby, medical power of estate attorney. Total critical care time provided by or is 40 minutes. Job ID: [id number]
[2020-03-10 20:36] VITALS: BMI 30.5
--- NOTE | 2020-03-10 20:39 | ULT ---
GALLBLADDER ULTRASOUND: 03/10/20 INDICATIONS: Elevated biliary. Comparison made to prior ultrasound of 08/28/19. Correlation is also made to prior CT of 08/28/29 and an abdominal MRI of 09/01/19. Prior CT and MRI have described multiple liver masses. Close follow-up or biopsy was recommended on t he MRI exam from 09/01/19. FINDINGS: Heterogeneous liver masses are again seen consistent with the prior studies. The gallbladder shows numerous small gallstones. The gallbladder wall appears thickened. The common bile duct was unable to be visualized. While the pancreas is mostly obscured the pancreati c duct is identified in the body of the pancreas and is dilated. The right kidney appears unremarkable. The technologist incidentally notes evidence of hepatofugal bl ood flow. IMPRESSION: 1. Heterogeneous liver with liver masses which correspond to prior exam. Follow-up CT or MRI is recommended to assess stability to prior studies. 2. There is cholelithiasis and thickened gallbladder wall. Common duct is not delineated; howeve r, there is evidence of dilatation of the pancreatic duct. Common duct stone is a consideration. Papa mmend GI consultation. POS: AGW
[2020-03-10 20:43] LABS: Critical Call Chem Troponin I RESULT DECREASING
[2020-03-10] MEDS: Sodium Chloride 0.9% 1,000 ML IV SCH (20:56)
[2020-03-10] MEDS: Famotidine 20 MG TAB PO SCH (20:57)
[2020-03-10 23:20] LABS: Lactic Acid 2.9 mmol/L (0.5-2.2)
[2020-03-10 23:31] LABS: Critical Call Chem Troponin I RESULT DECREASING
[2020-03-11 04:55] LABS: INR-International Normal Ratio 1.9
[2020-03-11 05:10] LABS: ALT (SGPT) 98 U/L (8-55); AST (SGOT) 339 U/L (5-34); Albumin 2.1 g/dL (3.4-4.8); Alkaline Phosphatase 129 U/L (40-110); Anion Gap 10 mmol/L (10-20); BUN (Urea Nitrogen) 24 mg/dL (8.4-25.7); Bilirubin, Total 12.6 mg/dL (0.2-1.2); CK (CPK) 2268 U/L (30-200); Calc. Creatinine Clearance 99 mL/min (70-130); Calcium 7.7 mg/dL (7.8-10.44); Carbon Dioxide 22 mmol/L (23-31); Chloride 104 mmol/L (98-107); Estimated GFR-MDRD 75; Glucose 123 mg/dL (80-115); Potassium 3.9 mmol/L (3.5-5.1); Protein, Total 5.1 g/dL (5.8-8.1); Sodium 132 mmol/L (136-145)
[2020-03-11] MEDS: Cefepime 2 GM in Sodium Chloride 0.9% 100 ML IVPB SCH ×2 (05:10→18:02)
[2020-03-11] MEDS: Sodium Chloride 0.9% 1,000 ML IV SCH ×3 (05:11→21:03)
[2020-03-11 05:15] LABS: Band 42 % (5-11); Lymphocytes 3 % (21-51); MDiff Complete? YES; Mean Corpuscular HGB CONC 31.8 g/dL (32.0-36.0); Mean Corpuscular Hemoglobin 39.6 pg (27.0-31.0); Mean Platelet Volume 11.4 fL (7.4-10.4); Monocytes 4 % (0-10); Neutrophil 51 % (42-75); Platelet Count 52 thou/uL (130-400); Platelet Morphology Comment Appears Decreased; RBC Distribution Width 15.6 % (11.5-14.5); Red Blood Cell (RBC) Count 2.52 mill/uL (4.70-6.10)
[2020-03-11] MEDS ORDERED: Prevnar 13-Val Conj/PF 0.5 ML SYRINGE IM ONE (09:00)
[2020-03-11] MEDS: Famotidine 20 MG TAB PO SCH ×2 (09:20→21:03)
[2020-03-11] MEDS: Thiamine 100 MG TAB PO SCH (09:21)
[2020-03-11] MEDS: Multivitamin W/ Minerals 1 TAB PO SCH (09:21)
[2020-03-11] MEDS: Folic Acid 1 MG TAB PO SCH (09:21)
[2020-03-11] MEDS: Cyanocobalamin (Vitamin B-12) 1,000 MCG TAB PO SCH (09:26)
[2020-03-11] MEDS: Vancomycin HCl 1.25 GM in Sodium Chloride 0.9% 250 ML 250 ML IVPB SCH ×2 (10:01→21:03)
--- NOTE | 2020-03-11 10:13 | PDOC.HOSPP ---
- Subjective Encounter Date: 03/11/20 Encounter Time: 10:10 Subjective: f/u for sepsis with shock unclear source on Cefepime/Vancomycin. Also tx for rhabdomyolysis/Type II NSTEMI/Encephalopathy and hepatic cirrhosis. Pt states he feels better overall. - Objective Vital Signs & Weight: Vital Signs (12 hours) Temp Pulse Ox 03/11/20 07:15 99 03/11/20 04:00 97 03/11/20 03:00 97.6 F 03/11/20 01:00 97.6 F Weight Weight 207 lb 0.225 oz Most Recent Monitor Data Heart Rate from ECG 68 NIBP 116/73 NIBP BP-Mean 87 Respiration from ECG 13 SpO2 99 I&O: 03/10/20 03/11/20 03/12/20 06:59 06:59 06:59 Intake Total 2581 Output Total 200 Balance 2381 Result Diagrams: 03/11/20 04:25 03/11/20 04:25 Additional Labs: Microbiology 03/10/20 17:11 Venous blood - Left Hand Blood Culture - Preliminary Specimen has been received and culture in progress. No Growth to date. 03/10/20 17:11 Venous blood - Left Arm Blood Culture - Preliminary Specimen has been received and culture in progress. No Growth to date. Laboratory Tests 03/10/20 03/10/20 03/10/20 17:11 17:11 17:11 WBC 11.8 H Plt Count 67 L Band Neuts % (Manual) 26 H Creatinine 1.27 Lactic Acid Total Bilirubin 14.9 H AST 477 H ALT 122 H Alkaline Phosphatase 189 H Creatine Kinase 4439 H Troponin I 0.923 H* Cortisol 03/10/20 03/10/20 03/10/20 20:05 20:05 22:55 WBC Plt Count Band Neuts % (Manual) Creatinine Lactic Acid 3.6 H Total Bilirubin AST ALT Alkaline Phosphatase Creatine Kinase Troponin I 0.820 H* 0.680 H* Cortisol 03/10/20 03/11/20 03/11/20 22:55 04:25 04:25 WBC Plt Count Band Neuts % (Manual) Creatinine Lactic Acid 2.9 H Total Bilirubin AST 339 H ALT 98 H Alkaline Phosphatase 129 H Creatine Kinase 2268 H Troponin I Cortisol 18.20 03/11/20 04:25 WBC Plt Count Band Neuts % (Manual) 42 H Creatinine Lactic Acid Total Bilirubin AST ALT Alkaline Phosphatase Creatine Kinase Troponin I Cortisol Radiology Reviewed by me: Yes (ABD sono - multiple hepatic lesions/masses, dilated pancreatic duct) EKG Reviewed by me: Yes (Tele - SR) Hospitalist ROS - Medication Medications: Active Medications Generic Name Dose Route Start Last Admin Trade Name Freq PRN Reason Stop Dose Admin Cyanocobalamin 1,000 mcg 03/11/20 09:00 03/11/20 09:26 Vitamin B-12 PO 1,000 mcg DAILY MAURICIO Administration Famotidine 20 mg 03/10/20 21:00 03/11/20 09:20 Pepcid PO 20 mg BID MAURICIO Administration Folic Acid 1 mg 03/11/20 09:00 03/11/20 09:21 Folvite PO 1 mg DAILY MAURICIO Administration Cefepime HCl 2 gm/ Sodium 100 mls @ 200 mls/hr 03/11/20 06:00 03/11/20 05:10 Chloride IVPB 100 mls 0600,1800 MAURICIO Administration Sodium Chloride 1,000 mls @ 100 mls/hr 03/10/20 19:29 03/11/20 05:11 Normal Saline 0.9% IV 1,000 mls .Q10H MAURICIO Administration Vancomycin HCl 1.25 gm/ Sodium 250 mls @ 166.667 mls/hr 03/11/20 08:00 10:01 Chloride IVPB 250 mls 0800,2000 MAURICIO Administration Iron/Minerals/Multivitamins 1 tab 03/11/20 09:00 03/11/20 09:21 Theragran M PO 1 tab DAILY MAURICIO Administration Thiamine HCl 100 mg 03/11/20 09:00 03/11/20 09:21 Thiamine PO 100 mg DAILY MAURICIO Administration - Exam General Appearance: NAD, awake alert Eye: PERRL, scleral icterus ENT: normocephalic atraumatic, no oropharyngeal lesions Neck: supple, symmetric, no JVD, no thyromegaly, no carotid bruit Heart: RRR, no murmur, no gallops, no rubs, normal peripheral pulses Heart - other findings: S1, S2 Respiratory: CTAB, no wheezes, no rales, no ronchi, normal chest expansion Gastrointestinal: soft, non-tender, non-distended, normal bowel sounds Extremities: no cyanosis, 1+ LE edema Skin: normal turgor Skin - other findings: multiple abrasions on LE's Neurological: cranial nerve grossly intact, no new deficit Musculoskeletal: normal tone, generalized weakness Psychiatric: normal affect, A&O x 3 Hosp A/P (1) Sepsis with encephalopathy and septic shock Code(s): A41.9 - SEPSIS, UNSPECIFIED ORGANISM; R65.21 - SEVERE SEPSIS WITH SEPTIC SHOCK; G93.40 - ENCEPHALOPATHY, UNSPECIFIED Status: Acute Plan: No dominant organism identified currently, continue Cefepime/Vancomycin another 24h then de-escalate, IVF's, serial BP monitoring (2) Type 2 myocardial infarction Code(s): I21.A1 - MYOCARDIAL INFARCTION TYPE 2 Status: Acute Plan: Secondary to demand ischemia in context of sepsis (3) Liver cirrhosis Code(s): K74.60 - UNSPECIFIED CIRRHOSIS OF LIVER Status: Chronic Qualifiers: Hepatic cirrhosis type: alcoholic cirrhosis Ascites presence: without ascites Qualified Code(s): K70.30 - Alcoholic cirrhosis of liver without ascites Plan: Longstanding cirrhosis, consult GI service for any further recommendations (4) Liver masses Code(s): R16.0 - HEPATOMEGALY, NOT ELSEWHERE CLASSIFIED Status: Chronic Plan: Longstanding masses with concern for HCC, consult GI service (5) Rhabdomyolysis Code(s): M62.82 - RHABDOMYOLYSIS Status: Acute Plan: Improved, continue IVF's, serial CPK monitoring (6) ETOH abuse Code(s): F10.10 - ALCOHOL ABUSE, UNCOMPLICATED Status: Chronic (7) Hepatitis C Code(s): B19.20 - UNSPECIFIED VIRAL HEPATITIS C WITHOUT HEPATIC COMA Status: Chronic Qualifiers: Viral hepatitis chronicity: chronic Hepatic coma status: without hepatic coma Qualified Code(s): B18.2 - Chronic viral hepatitis C - Plan continue antibiotics, PT/OT, drug abuse social worker, out of bed/ambulate, DVT proph w/ SCDs Consults: Palliative Care Continue supportive mgmt Consult GI service for any further recommendations Consult Palliative care service Continue IVF's PT for functional assessment MVI, Thiamine, Folate AM lab: CMP, CBC
[2020-03-11] MEDS: Acetaminophen 500 MG TAB PO PRN (10:57)
--- NOTE | 2020-03-11 14:33 | EKG ---
Test Reason : Blood Pressure : / mmHG Vent. Rate : 093 BPM Atrial Rate : 093 BPM P-R Int : 162 ms QRS Dur : 096 ms QT Int : 442 ms P-R-T Axes : 033 049 -20 degrees QTc Int : 549 ms Normal sinus rhythm with sinus arrhythmia Low voltage QRS T wave abnormality, consider anterior ischemia Prolonged QT Abnormal ECG Confirmed by ELDON JIMENEZ, ANNA ([id number]), subeditor LIZA IBARRA ([id number]) on 03/11/2020 2:33:11 PM Referred By: Confirmed By:ANNA COLÓN MD
--- NOTE | 2020-03-11 19:52 | CON ---
DATE OF CONSULTATION: 03/11/2020 HISTORY OF PRESENT ILLNESS: Mr. Cosby is a pleasant gentleman, who has a known history of liver disease, presumably secondary to alcohol use. He tells me that he told his brother that he wanted to quit drinking a week ago, but his brother told him not to. I suspect this was out of fear of alcohol withdrawal. He was found down at home by the landlord, who alerted the patient's brother, who contacted EMS apparently. He subsequently is seen in the ICU. He does not recall coming to the hospital. PAST MEDICAL HISTORY: Remarkable for: 1. Cirrhosis. 2. Hypertension. 3. Hepatitis C. 4. History of street drug use. 5. History of hepatic encephalopathy. 6. History of medical noncompliance per the records. 7. History of splenectomy. 8. History of arm surgery in the past. MEDICATIONS: Prior to admission are unknown. ALLERGIES: HE HAS NO DRUG ALLERGIES. FAMILY HISTORY: Positive for hypertension, diabetes, and cancer. SOCIAL HISTORY: He is a daily drinker. He says he drinks four 16-ounce beers a day. He does not smoke. He denies using drugs currently. REVIEW OF SYSTEMS: Ten points otherwise negative. PHYSICAL EXAMINATION: VITAL SIGNS: This morning, he is 89/60, heart rate 85, respiratory rates in the teens, and oximetry is 95. HEAD AND NECK: Unremarkable. LUNGS: Clear. HEART: Regular rhythm. S1, S2 are normal. ABDOMEN: Soft and nontender. EXTREMITIES: Without clubbing, cyanosis, or edema. LABORATORY DATA: 11.8 white cells, 12.2 hemoglobin, he had 26% bands on his peripheral smear. Today, he has 42% bands with white count of 12. He has a very impressive mean corpuscular volume of 125. Sodium 132, potassium 3.9, chloride 104, bicarb 22, BUN 24, creatinine 1.0, glucose 123, bilirubin is 12, AST is 339, ALT is 98. CPK was 4439 on admission, is down to 2268. Albumin is 2.1. INR is 1.9. Ammonia level was 45 yesterday. IMPRESSION: Rhabdomyolysis with encephalopathy on top of severe chronic liver disease with coagulopathy, hypoalbuminemia, and markedly elevated bilirubin. Blood cultures are preliminarily negative. He has a very impressive left shift. He is at risk for multiple different infections especially given that he has no spleen. He does appear to be stable to move out of Critical Care. This is a 70 min consult with greater than 50% of the time spent on the unit with coordination of care. Job ID: [id number] MTDD
[2020-03-12] MEDS: Cefepime 2 GM in Sodium Chloride 0.9% 100 ML IVPB SCH ×2 (04:45→17:04)
[2020-03-12 05:04] LABS: Band 39 % (5-11); Hemoglobin 10.6 g/dL (14.0-18.0); Hypochromia SLIGHT = 6-15 cells (100X) (0-5/hpf); Lymphocytes 2 % (21-51); MDiff Complete? YES; Mean Corpuscular HGB CONC 32.8 g/dL (32.0-36.0); Mean Platelet Volume 11.7 fL (7.4-10.4); Monocytes 5 % (0-10); Neutrophil 54 % (42-75); Platelet Count 53 thou/uL (130-400); Platelet Morphology Comment Appears Decreased; RBC Distribution Width 15.4 % (11.5-14.5); Red Blood Cell (RBC) Count 2.58 mill/uL (4.70-6.10); Target Cells SLIGHT = 2-5 cells (100X) (0-1/hpf)
[2020-03-12 05:06] LABS: ALT (SGPT) 103 U/L (8-55); AST (SGOT) 294 U/L (5-34); Alkaline Phosphatase 183 U/L (40-110); Anion Gap 12 mmol/L (10-20); BUN (Urea Nitrogen) 31 mg/dL (8.4-25.7); CK (CPK) 1320 U/L (30-200); Calc. Creatinine Clearance 104 mL/min (70-130); Calcium 7.3 mg/dL (7.8-10.44); Carbon Dioxide 18 mmol/L (23-31); Chloride 104 mmol/L (98-107); Estimated GFR-MDRD 78; Glucose 123 mg/dL (80-115); Potassium 4.2 mmol/L (3.5-5.1); Sodium 130 mmol/L (136-145)
--- NOTE | 2020-03-12 06:21 | CON ---
DATE OF CONSULTATION: 03/11/2020 REASON FOR CONSULTATION: Abnormal LFTs, liver cirrhosis, and gallstones. HISTORY OF PRESENT ILLNESS: Cem Cosby is a 64-year-old Latin-Irish male, who is known to have liver cirrhosis due to alcohol abuse and chronic hepatitis C. The patient has had treatment for hepatitis C in the past by Dr. Pat. The patient apparently was brought in by the ambulance because they called the ambulance services to pick him up. Apparently, the patient was found to be in terrible state, lying on the floor covered with feces and appeared to be malodorous. Since admission, the patient has improved tremendously. He is awake, alert, and communicative. In fact, he is in the ICU, sitting on the chair, eating his lunch and eating very well. The patient is awake, alert, and communicative. The patient tells me his ambulation is getting less and less because of severe pain, some weakness over both thigh area. Never has had symptoms before. The patient has history of alcohol abuse and he continues to drink alcohol. He drinks up to 4 beers several times a week. No history of drug abuse, although he has past history of drug abuse. The patient had abdominal pain. No nausea, vomiting. No hematochezia or melena. The patient was hospitalized with similar episodes in August [address] was [address] Dr[address] Pat. The patient underwent extensive evaluation in the last admission including abdominal sonogram and abdominal CAT scan and MRI. The patient found to have multiple liver masses and it was felt by Dr. Pat the liver masses on CAT scan, sonogram, and MRI most likely represent regenerating liver tissue than actual tumor. Serum alpha fetoprotein level was normal at that time. He had no symptoms. ALLERGIES: NONE. SOCIAL HISTORY: The patient is single. He lives alone. He has past history of drug abuse and alcohol abuse. He has a positive smoking more than 40 years ago. He still drinks alcohol 4 beers several times a week. MEDICAL ILLNESSES: 1. Liver cirrhosis due to alcohol abuse. 2. Hypertension. 3. Chronic back pain. 4. Chronic hepatitis C, status post treatment. 5. Polysubstance abuse. 6. Hepatic encephalopathy in the past. 7. Bipolar disorder. 8. Physical deconditioning. 9. Medication noncompliance. 10. Abnormal CAT scan and MRI showing liver masses felt to be regenerating liver tissue. PAST SURGICAL HISTORY: 1. Splenectomy. 2. Left thumb surgery. FAMILY HISTORY: Hypertension, diabetes. Father, prostate cancer. REVIEW OF SYSTEMS: Unremarkable except for the pain over both thighs and limitation of movement. PHYSICAL EXAMINATION: GENERAL: He is awake, alert, and communicative. He is oriented to time, place, and person. He is able to tell me his name, where he is at, month, year, and date. VITAL SIGNS: Stable, afebrile. His pulse is 80, blood pressure is 110/70. He is icteric. NECK: Supple. CARDIOVASCULAR: First and second heart sounds normal. LUNGS: Clear to auscultation. ABDOMEN: Soft. Abdomen is distended. Abdomen is nontender. No organomegaly. No masses. Bowel sounds normal. EXTREMITIES: Reveal no edema. LABORATORY DATA: Shows sodium 132, potassium 4.4, chloride 100, bicarb 18, BUN is 20, creatinine is 1.27, GFR 57, glucose 95, lactic acid level 6.7, calcium 8.8, bilirubin 14.9, AST 477, ALT 122, alkaline phosphatase 189. Ammonia level is 45. CPK 4439 indicative of most likely rhabdomyolysis. Albumin 2.3, lipase of 9. TSH 0.68. CBC; WBC 11,600, hemoglobin 12.2, hematocrit 37.1, MCV 124, platelet count is 67,000. Abdominal sonogram shows liver masses, gallstones. No dilation of bile ducts. CLINICAL IMPRESSION: 1. Alcoholic liver cirrhosis, stable. Continues to drink alcohol. 2. 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 The low platelet count very well may be due to underlying liver cirrhosis. 3. Sepsis with septic shock, recovered and doing much better. 4. Rhabdomyolysis. 5. Chronic hepatitis C, status post treatment. RECOMMENDATIONS: 1. He has had extensive workup done a few months ago. I see no reason for a repeat workup. He is clinically stable. No abdominal pain. No history of any hematochezia, rectal hemorrhage, or melena. 2. Continue IV antibiotics and IV fluids. 3. Continue diet as tolerated. 4. From GI standpoint, no further recommendation. He will go back to see Dr. Pat in the future as an outpatient. This was discussed with Dr. Carmen Jesus and he will discharge the patient when he is clinically stable. Job ID: [id number]
[2020-03-12 06:26] LABS: Vancomycin, Trough 21.7 ug/mL
[2020-03-12] MEDS: Vancomycin HCl 1.25 GM in Sodium Chloride 0.9% 250 ML 250 ML IVPB SCH ×2 (07:48→19:59)
[2020-03-12] MEDS: Famotidine 20 MG TAB PO SCH (07:48)
[2020-03-12] MEDS: Thiamine 100 MG TAB PO SCH (07:48)
[2020-03-12] MEDS: Folic Acid 1 MG TAB PO SCH (07:48)
[2020-03-12] MEDS: Multivitamin W/ Minerals 1 TAB PO SCH (07:49)
[2020-03-12] MEDS: Cyanocobalamin (Vitamin B-12) 1,000 MCG TAB PO SCH (07:49)
--- NOTE | 2020-03-12 11:46 | PRG ---
DATE OF SERVICE: 03/12/2020 SUBJECTIVE: Mr. Cosby is afebrile. OBJECTIVE: VITAL SIGNS: Heart rate is 83, respiratory rate is 18, and oximetry is 94% on room air. General: He is in no distress. LUNGS: Clear. HEART: Regular rhythm. ABDOMEN: Soft. LABORATORY DATA: White count 17.0, hemoglobin 10.6, platelets 53,000, and 39% bands on his peripheral smear. Blood cultures are still negative. IMPRESSION: 1. Encephalopathy with rhabdomyolysis. 2. Cirrhosis. 3. Persistent left shift on CBC with no obvious source, empirically being treated with antibiotics. 4. Pulmonary hypertension, which can be related to his cirrhosis. 5. Cirrhosis. 6. Chronic heavy alcohol use. PLAN: Continue supportive care. We will sign off. Job ID: [id number]
--- NOTE | 2020-03-12 12:33 | PDOC.HOSPP ---
- Subjective Encounter Date: 03/12/20 Encounter Time: 10:15 Subjective: Feels cold and did not know what is happending. he is oriented aox 3 - knows he is in the hospital. explained the reason and how long he would likely stay. wbcs high, GI and pulm note reviewed. - Objective Vital Signs & Weight: Vital Signs (12 hours) Temp Pulse Resp BP BP Pulse Ox 03/12/20 07:47 97.8 F 82 18 120/66 94 L 03/12/20 03:06 97.8 F 76 18 112/75 93 L Weight Weight 211 lb 4.8 oz Most Recent Monitor Data Heart Rate from ECG 84 NIBP 89/59 NIBP BP-Mean 69 Respiration from ECG 17 SpO2 95 I&O: 03/11/20 03/12/20 03/13/20 06:59 06:59 06:59 Intake Total 2581 2400 Output Total 200 1075 Balance 2381 1325 Result Diagrams: 03/12/20 04:07 03/12/20 04:07 Hospitalist ROS - Medication Medications: Active Medications Generic Name Dose Route Start Last Admin Trade Name Freq PRN Reason Stop Dose Admin Acetaminophen 1,000 mg 03/10/20 19:29 03/11/20 10:57 Tylenol PO 1,000 mg Q6H PRN Administration Mild Pain (1-3) Cyanocobalamin 1,000 mcg 03/11/20 09:00 03/12/20 07:49 Vitamin B-12 PO 1,000 mcg DAILY MAURICIO Administration Famotidine 20 mg 03/10/20 21:00 03/12/20 07:48 Pepcid PO 20 mg BID MAURICIO Administration Folic Acid 1 mg 03/11/20 09:00 03/12/20 07:48 Folvite PO 1 mg DAILY MAURICIO Administration Cefepime HCl 2 gm/ Sodium 100 mls @ 200 mls/hr 03/11/20 06:00 03/12/20 04:45 Chloride IVPB 100 mls 0600,1800 MAURICIO Administration Sodium Chloride 1,000 mls @ 100 mls/hr 03/10/20 19:29 03/11/20 21:03 Normal Saline 0.9% IV 1,000 mls .Q10H MAURICIO Administration Vancomycin HCl 1.25 gm/ Sodium 250 mls @ 166.667 mls/hr 03/11/20 08:00 07:48 Chloride IVPB 250 mls 799,1999 MAURICIO Administration Iron/Minerals/Multivitamins 1 tab 03/11/20 09:00 03/12/20 07:49 Theragran M PO 1 tab DAILY MAURICIO Administration Sodium Chloride 10 ml 03/11/20 21:00 03/12/20 07:49 Flush - Normal Saline IVF 10 ml Q12HR MAURICIO Administration Thiamine HCl 100 mg 03/11/20 09:00 03/12/20 07:48 Thiamine PO 100 mg DAILY MAURICIO Administration - Exam General Appearance: NAD, awake alert Eye: PERRL ENT: normocephalic atraumatic Neck: supple Heart: RRR Respiratory: CTAB, normal chest expansion Gastrointestinal: distended Neurological: no focal deficits Hosp A/P - Plan 1) Sepsis with encephalopathy and septic shock Code(s): A41.9 - SEPSIS, UNSPECIFIED ORGANISM; R65.21 - SEVERE SEPSIS WITH SEPTIC SHOCK; G93.40 - ENCEPHALOPATHY, UNSPECIFIED Status: Acute Plan: No dominant organism identified currently, continue Cefepime/Vancomycin another 24h then de-escalate, IVF's, serial BP monitoring (2) Type 2 myocardial infarction Code(s): I21.A1 - MYOCARDIAL INFARCTION TYPE 2 Status: Acute Plan: Secondary to demand ischemia in context of sepsis echo 1/.3 DD, ef 55% (3) Liver cirrhosis Code(s): K74.60 - UNSPECIFIED CIRRHOSIS OF LIVER Status: Chronic Qualifiers: Hepatic cirrhosis type: alcoholic cirrhosis Ascites presence: without ascites Qualified Code(s): K70.30 - Alcoholic cirrhosis of liver without ascites Plan: Longstanding cirrhosis, GI know him well. no aggressive intervention fw in the clinic. (4) Liver masses Code(s): R16.0 - HEPATOMEGALY, NOT ELSEWHERE CLASSIFIED Status: Chronic Plan: Longstanding masses with concern for HCC outpt follow up (5) Rhabdomyolysis Code(s): M62.82 - RHABDOMYOLYSIS Status: Acute Plan: continue IVF's, serial CPK monitoring Improving (6) ETOH abuse Code(s): F10.10 - ALCOHOL ABUSE, UNCOMPLICATED Status: Chronic (7) Hepatitis C Code(s): B19.20 - UNSPECIFIED VIRAL HEPATITIS C WITHOUT HEPATIC COMA Status: Chronic Qualifiers: Viral hepatitis chronicity: chronic Hepatic coma status: without hepatic coma Qualified Code(s): B18.2 - Chronic viral hepatitis C - Plan continue antibiotics, PT/OT, licensed social worker, out of bed/ambulate, DVT proph w/ SCDs Consults: Palliative Care PT for functional assessment MVI, Thiamine, Folate Pulm, GI, ID, palliative on board. Full code
[2020-03-12] MEDS: Sodium Chloride 0.9% 1,000 ML IV SCH (12:47)
[2020-03-12] MEDS: Acetaminophen 500 MG TAB PO PRN (13:13)
[2020-03-12] MEDS: NS 0.9% w/ 20 MEQ KCL 1,000 ML/1,000 ML BAG IV SCH (13:13)
[2020-03-13] MEDS: NS 0.9% w/ 20 MEQ KCL 1,000 ML/1,000 ML BAG IV SCH ×3 (04:15→22:58)
[2020-03-13] MEDS: Cefepime 2 GM in Sodium Chloride 0.9% 100 ML IVPB SCH ×2 (04:16→17:03)
[2020-03-13 04:56] LABS: ALT (SGPT) 128 U/L (8-55); AST (SGOT) 330 U/L (5-34); Albumin 1.9 g/dL (3.4-4.8); Alkaline Phosphatase 236 U/L (40-110); Anion Gap 9 mmol/L (10-20); BUN (Urea Nitrogen) 30 mg/dL (8.4-25.7); Bilirubin, Total 13.6 mg/dL (0.2-1.2); CK (CPK) 650 U/L (30-200); Calc. Creatinine Clearance 97 mL/min (70-130); Calcium 7.3 mg/dL (7.8-10.44); Carbon Dioxide 23 mmol/L (23-31); Chloride 106 mmol/L (98-107); Estimated GFR-MDRD 72; Globulin 2.7 g/dL (2.4-3.5); Glucose 113 mg/dL (80-115); Potassium 4.1 mmol/L (3.5-5.1); Protein, Total 4.6 g/dL (5.8-8.1); Sodium 134 mmol/L (136-145)
[2020-03-13 05:14] LABS: Band 16 % (5-11); Hemoglobin 10.9 g/dL (14.0-18.0); Lymphocytes 11 % (21-51); MDiff Complete? YES; Mean Corpuscular HGB CONC 32.6 g/dL (32.0-36.0); Mean Corpuscular Hemoglobin 40.9 pg (27.0-31.0); Mean Platelet Volume 12.5 fL (7.4-10.4); Metamyelocyte 1 % (0-0); Monocytes 10 % (0-10); Myelocyte 1 % (0-0); Neutrophil 61 % (42-75); Platelet Count 54 thou/uL (130-400); Platelet Morphology Comment Appears Decreased; RBC Distribution Width 15.4 % (11.5-14.5); Red Blood Cell (RBC) Count 2.66 mill/uL (4.70-6.10); White Blood Cell (WBC) Count 15.8 thou/uL (4.8-10.8)
[2020-03-13 07:11] LABS: Vancomycin, Trough 22.9 ug/mL
[2020-03-13] MEDS: Thiamine 100 MG TAB PO SCH (08:22)
[2020-03-13] MEDS: Folic Acid 1 MG TAB PO SCH (08:22)
[2020-03-13] MEDS: Cyanocobalamin (Vitamin B-12) 1,000 MCG TAB PO SCH (08:22)
[2020-03-13] MEDS: Multivitamin W/ Minerals 1 TAB PO SCH (08:22)
[2020-03-13] MEDS: Pantoprazole 40 MG VIAL IVP SCH (08:23)
[2020-03-13] MEDS: Vancomycin HCl 1.25 GM in Sodium Chloride 0.9% 250 ML 250 ML IVPB SCH (08:24)
[2020-03-13] MEDS ORDERED: Vancomycin 1 GM in Premix Bag 1 BAG IVPB SCH (08:30)
[2020-03-13] MEDS ORDERED: Iopamidol 370 76% 100 ML VIAL ONE (09:23)
--- NOTE | 2020-03-13 11:29 | PDOC.HOSPP ---
- Subjective Encounter Date: 03/13/20 Encounter Time: 09:45 Subjective: states he has thigh pain R>L for 3 weeks and not able to get up easily. Had BM today, d/w RN. - Objective Vital Signs & Weight: Vital Signs (12 hours) Temp Pulse Resp BP Pulse Ox 03/13/20 08:00 97.6 F 85 16 105/74 98 03/13/20 04:15 97.9 F 65 18 115/70 97 03/13/20 00:14 98 Weight Weight 214 lb 14.4 oz Most Recent Monitor Data Heart Rate from ECG 84 NIBP 89/59 NIBP BP-Mean 69 Respiration from ECG 17 SpO2 95 I&O: 03/12/20 03/13/20 03/14/20 06:59 06:59 06:59 Intake Total 2400 3470 240 Output Total 1075 530 Balance 1325 2940 240 Result Diagrams: 03/13/20 04:06 03/13/20 04:06 Hospitalist ROS - Medication Medications: Active Medications Generic Name Dose Route Start Last Admin Trade Name Freq PRN Reason Stop Dose Admin Acetaminophen 1,000 mg 03/10/20 19:29 03/12/20 13:13 Tylenol PO 1,000 mg Q6H PRN Administration Mild Pain (1-3) Cyanocobalamin 1,000 mcg 03/11/20 09:00 03/13/20 08:22 Vitamin B-12 PO 1,000 mcg DAILY MAURICIO Administration Folic Acid 1 mg 03/11/20 09:00 03/13/20 08:22 Folvite PO 1 mg DAILY MAURICIO Administration Cefepime HCl 2 gm/ Sodium 100 mls @ 200 mls/hr 03/11/20 06:00 03/13/20 04:16 Chloride IVPB 100 mls 0600,1800 MAURICIO Administration Potassium Chloride/Sodium Chloride 1,000 ml in 1,000 mls @ 75 mls/hr 03/12/20 12:45 03/13/20 04:15 Ns 0.9% W/ 20 Meq Kcl IV 1,000 mls .[id number] MAURICIO Administration Vancomycin HCl 1 gm/ Device 200 mls @ 200 mls/hr 03/13/20 08:30 03/13/20 10: 02 IVPB 03/13/20 12:30 200 mls NOW MAURICIO Administration Iron/Minerals/Multivitamins 1 tab 03/11/20 09:00 03/13/20 08:22 Theragran M PO 1 tab DAILY MAURICIO Administration Pantoprazole Sodium 40 mg 03/13/20 09:00 03/13/20 08:23 Protonix IVP 40 mg DAILY MAURICIO Administration Sodium Chloride 10 ml 03/11/20 21:00 03/13/20 08:23 Flush - Normal Saline IVF 10 ml Q12HR MAURICIO Administration Thiamine HCl 100 mg 03/11/20 09:00 03/13/20 08:22 Thiamine PO 100 mg DAILY MAURICIO Administration - Exam General Appearance: NAD, awake alert Eye: PERRL ENT: normocephalic atraumatic Neck: supple Heart: RRR Respiratory: CTAB, normal chest expansion Gastrointestinal: soft, normal bowel sounds Extremities - other findings: r. thigh tender, r. knee swollen than left. Hosp A/P - Plan 1) Sepsis with encephalopathy and septic shock Code(s): A41.9 - SEPSIS, UNSPECIFIED ORGANISM; R65.21 - SEVERE SEPSIS WITH SEPTIC SHOCK; G93.40 - ENCEPHALOPATHY, UNSPECIFIED Status: Acute Plan: No dominant organism identified currently, continue Cefepime/Vancomycin another 24h then de-escalate, IVF's, serial BP monitoring (2) Type 2 myocardial infarction Code(s): I21.A1 - MYOCARDIAL INFARCTION TYPE 2 Status: Acute Plan: Secondary to demand ischemia in context of sepsis echo 1/.3 DD, ef 55% (3) Liver cirrhosis 2/2 alcohol and hep C Code(s): K74.60 - UNSPECIFIED CIRRHOSIS OF LIVER Status: Chronic Qualifiers: Hepatic cirrhosis type: alcoholic cirrhosis Ascites presence: without ascites Qualified Code(s): K70.30 - Alcoholic cirrhosis of liver without ascites Plan: Longstanding cirrhosis, GI know him well. no aggressive intervention fw in the clinic. (4) Liver masses Code(s): R16.0 - HEPATOMEGALY, NOT ELSEWHERE CLASSIFIED Status: Chronic Plan: Longstanding masses with concern for HCC outpt follow up (5) Rhabdomyolysis, right thigh pain Code(s): M62.82 - RHABDOMYOLYSIS Status: Acute Plan: continue IVF's, serial CPK monitoring Improving his thigh pain may be d/t rhabdo. -CPK trending down - will also fw w.. inflamm..markers and US to r/o any concern for DVT. (6) ETOH abuse Code(s): F10.10 - ALCOHOL ABUSE, UNCOMPLICATED Status: Chronic (7) Hepatitis C -has been treated in the past, per GI/ continue antibiotics, PT/OT, social professionals, out of bed/ambulate, DVT proph w/ SCDs Consults: Palliative Care PT for functional assessment MVI, Thiamine, Folate Pulm, GI, ID, palliative on board. Full code Dispo - pt lives alone for the most part in a house, where the landlord also lives in the same house. family nearby but not close to him.
--- NOTE | 2020-03-13 14:27 | ULT ---
ULTRASOUND DOPPLER DUPLEX VENOUS BILATERAL LOWER EXTREMITIES: DATE: 03/13/2020 HISTORY: 64-year-old male with bilateral lower extremity pain and edema TECHNIQUE: Grayscale, color-flow, and spectral analysis, of major veins of bilateral lower extremities. FINDINGS: There is demonstration of blood flow with normal compressibility, of the bilateral common femoral, pr ofunda femoral, greater saphenous, femoral, popliteal, and posterior tibial, veins. There is soft tissue edema in the bilateral thighs, and especially right posterior knee. IMPRESSION: 1. No deep venous thrombosis of bilateral lower extremities. 2. Soft tissue edema in the bilateral lower extremities.
--- NOTE | 2020-03-13 18:57 | CT ---
CT ABDOMEN WITH CONTRAST: DATE: 03-13-2020 History: 64-year-old male with liver mass. Follow up. Comparison: 08-28-19 Technique: IV contrast: 100 ml Isovue 370 Oral contrast: PO Isovue Single phase scan from lung bases to iliac crests Coronal and sagittal reconstructions FINDINGS: Again noted are the several left renal calculi. The largest is approximately 12 mm at the lower pole abel. No hydronephrosis or pyelonephritis. 1 cm oval low density lesion at lateral lower pole parenc hyma of left kidney, too small to characterize, unchanged. New finding of edema throughout the subcutaneous fat surrounding the abdominal cavity. Multiple calcified gallstones again noted at the dependent portion of the gallbladder lumen. No gallb ladder distention, but gallbladder mural enhancement is increased, greater than prior study. A large number of gastric varices along the medial border of the proximal stomach. One of these dilat ed veins communicates with the left renal vein. Spleen is absent. A 3.5 cm soft tissue density nodule at the posterior aspect of the left upper quadrant superior to the left kidney is probably a splenul e. No major pathology of pancreas or adrenals identified. Previously, there was a small amount of free fluid around the liver, and this is unchanged. Near the dome of the right lobe of the liver, the previously demonstrated enhancing mass in hepatic s egment 7, which was previously approximately 4.8 x 4.5 x 4.6 cm, is now approximately 5.4 x 5.2 x 4.6 cm. It is solid, with several tiny irregular hypodense necrotic regions. In a subcapsular location in left lobe of liver in hepatic segment 2, there is an approximately 2.8 x 2.9 x 2.5 cm solid enhancing, slightly exophytic mass, which was previously approximately 2.3 x 2.1 x 2.4 cm. In hepatic segment 3, there is an approximately 2.8 x 2.2 x 2.8 cm mass, which was previously approxi mately 1.9 x 1.5 x 1.8 cm. Diffusely low hepatic attenuation. Nodular margins of liver. No portal vein thrombosis. No abdominal aortic aneurysm. There is a new or greater degree of edema throughout the mesentery and bilateral per irenal, and anterior and posterior pararenal, spaces, and bilateral paracolic gutters. No small bowel dilation or pneumoperitoneum. Mild subsegmental atelectasis at the bilateral posterior costophrenic angles. IMPRESSION: 1. Interval growth of the three solid malignant neoplastic tumor masses in the liver, one in the righ t lobe and two in the left lobe. These could represent multicentric hepatocellular carcinoma or metas tases. 2. Hepatic cirrhosis. 3. Small amount of ascites around the liver. 4. Absent spleen. Splenule present. 5. Prominent varices in the left upper quadrant. 6. Cholelithiasis. 7. Interval worsening of anasarca. 8. Interval worsening of edema or ascites, throughout the peritoneal cavity and retroperitoneum. 9) Left nephrolithiasis. Code T POS: JIN
[2020-03-13] MEDS: Vancomycin 1 GM in Premix Bag 1 BAG IVPB SCH (21:18)
--- NOTE | 2020-03-13 21:29 | CON ---
DATE OF CONSULTATION: 03/13/2020 REASON FOR CONSULTATION: Possible sepsis. HISTORY OF PRESENT ILLNESS: A 64-year-old gentleman, history of alcoholism, chronic hepatitis C with resolution of viral PCR after following treatment about [address] Pat, and liver cirrhosis, who was brought into the hospital at this time because he was found to be disheveled with evidence of urine and feces lying around and obvious evidence of inadequate self-care. He was also confused. The patient recalls pain in the thighs and pain in the upper thoracic spine area, which he has had for the past 2 weeks approximately with progression, which has led to inability to ambulate properly. This seems to be the precipitating symptom that led to the findings that brought him to the hospital. On arrival, his BP 119/73, pulse 108, temperature 98.7. He remained afebrile while in the emergency room. O2 saturations were 96 to 97 on room. On the exam, the patient appeared disheveled, confused with evidence of feces and urine around his body. He was obviously jaundiced. Heart, lungs, and abdomen examinations not described as abnormal. He was oriented to person and place. Other findings included a white cell count of 11.8, hemoglobin 12, platelets 67 with 26% bands. INR 1.9. Chemistry studies with sodium 132, creatinine 1.27 with a baseline of 0.88, bilirubin was 14.9, which is higher than his baseline of 6.7 from August 2019. His CK was elevated at 4439, troponin 0.923. Albumin 2.3. TSH 0.68. BNP was elevated at 2600. INR was 1.9. The patient has had 2 sets of blood cultures, which were no growth at 48 hours, and imaging studies have included a venogram with no evidence of deep vein thrombosis. The chest x-ray was not particularly remarkable, just noted the normal position of the central line. Abdominal ultrasound from March 10, heterogeneous liver with liver masses and cholelithiasis and thickened gallbladder wall. The liver masses had been worked up in August 2019 with an abdominal MRI and the lesions were nonspecific, did not have the consistent features of liver cancer. A close interval followup was recommended with possible biopsy. He did have cholelithiasis as well. The patient had a CT abdomen and pelvis from August 2019, which demonstrated the cirrhosis, portal hypertension, enlarging liver masses concerning for multifocal hepatocellular carcinoma. Dr. Her was consulted. His impression was that the patient had extensive workup for his liver masses in the past and he did not recommend any repeat workup. Dr. Bueno had seen him on August 29, 2019, and at that time, he felt that an AFP was recommended and depending on the results further studies would be recommended, even the possibility of transfer. The tumor marker AFP was within normal limits. In progress note from Dr. Pat from September 02, 2019, he made a note of recommending a repeat MRI of the liver in six months from August and that has not yet been carried out to the best of my knowledge. Currently, Mr. Cosby is awake. He knows where he is. He is able to converse. He still has quite significant pain in the upper thoracic spine, which he rates at 8/10. The pain in the thighs has improved, but is still there. He denies any headaches. No sore throat, odynophagia, or dysphagia. No chest pain or shortness of breath or cough. No abdominal pain. He is able to urinate. PAST MEDICAL HISTORY: 1. Liver cirrhosis secondary to hep C and alcoholism. Liver masses, which had workup, which included alpha fetoprotein. Recommendation was made by his processing rep, Dr. Pat, to repeat MRI of the liver more or less around this time for followup. This does not seem to have been done yet. 2. Alcoholism. Still active. 3. Hypertension. 4. Chronic hep C, treated with cure. 5. Low back pain. 6. COPD. 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 Still drinking about three or four beers per day, sometimes more. Has a history of heroin and cocaine use, but that was when he was a young adult. 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 He quit smoking more than 10 years before. FAMILY HISTORY: Noncontributory. ALLERGIES: NONE. CURRENT MEDICATIONS: 1. Cefepime. 2. Folvite. 3. Theragran. 4. Ativan. 5. Levophed. 6. Zofran. 7. Protonix. 8. Thiamine. 9. Vancomycin. PHYSICAL EXAMINATION: VITAL SIGNS: T-max 98.5, blood pressure 120/80, pulse 68, respirations 16, and O2 saturations 96 to 98. GENERAL: He is voiding in the urinal. SKIN: Shows areas of petechiae in the medial aspect of the right foot, some hyperkeratosis, exfoliation of the plantar aspect of right and left feet, intertriginous maceration, spider angiomata noted in the anterior chest, hyperkeratosis in the extensor aspect of the upper extremities and forearms. The patient has a central line in the left subclavian location. LYMPH: No lymphadenopathy. HEENT: Ocular movements conjugate. Evidence of scleral icterus. Conjunctivae are normal. Oral cavity with still quite a few teeth in place with the expected decay and gum disease. NECK: No jugular vein distention. LUNGS: Symmetric air entry with faint basilar crackles on the right side. HEART: S1 and S2 with a soft aortic murmur. No S3. Regular rate. ABDOMEN: No evidence of ascites. No organomegaly. No bladder distention. MUSCULOSKELETAL: There is moderate to marked pain on palpation of the mid upper thoracic spine region and mild in the lower back area. I was not able to elicit any tenderness on palpation of the thighs, either right or left side. EXTREMITIES: He does have +2 to 3 edema in the lower extremities. Pulses are 1+ in dorsalis pedis. Onychodystrophy is noted. NEURO: Nonfocal. Asterixis is not present. He knows his name, location, and date. LABORATORY DATA: Latest values of labs, his white cell count is at 15.8, hemoglobin 10.9, platelets 61, with 16% bands. The latest chemistry values, bilirubin 13.6, AST 330, ALT 128, alkaline phosphatase 236. ASSESSMENT: 1. Liver cirrhosis secondary to hepatitis C, which has been treated, and chronic alcoholism, still active. 2. Progressively worsening upper thoracic spine pain. 3. Altered mental status, neutrophilia with bandemia. 4. Liver masses. DISCUSSION: The differential diagnosis includes thoracic spine infection associated with previous bacteremia, which is known to be of higher frequency in patients with liver disease. This could reflect the best possibility of diskitis and osteomyelitis and paraspinal infection and needs to be evaluated with MRI. The other possibility is progression of liver disease, maybe with a metastatic malignancy in view of the liver masses that have been identified. Per Dr. Pat's last note last year, the recommendation was to repeat a liver MRI around this time approximately. We will go ahead and repeat alpha fetoprotein as well. Bacteremia was not identified at this time. Spontaneous bacterial peritonitis is less likely, and a respiratory tract infection is not apparent at this time. Job ID: [id number]
[2020-03-14] MEDS: Cefepime 2 GM in Sodium Chloride 0.9% 100 ML IVPB SCH ×2 (04:50→17:55)
[2020-03-14 05:17] LABS: Band 4 % (5-11); Hemoglobin 11.1 g/dL (14.0-18.0); Hypochromia SLIGHT = 6-15 cells (100X) (0-5/hpf); Lymphocytes 8 % (21-51); MDiff Complete? YES; Mean Corpuscular HGB CONC 32.3 g/dL (32.0-36.0); Mean Corpuscular Hemoglobin 40.6 pg (27.0-31.0); Mean Platelet Volume 11.8 fL (7.4-10.4); Monocytes 9 % (0-10); Neutrophil 79 % (42-75); Platelet Count 61 thou/uL (130-400); Platelet Morphology Comment Appears Decreased; Polychromasia SLIGHT = 2-3 cells (100X) (0-2/hpf); RBC Distribution Width 15.7 % (11.5-14.5); Red Blood Cell (RBC) Count 2.74 mill/uL (4.70-6.10); Target Cells SLIGHT = 2-5 cells (100X) (0-1/hpf); White Blood Cell (WBC) Count 14.8 thou/uL (4.8-10.8)
[2020-03-14 05:27] LABS: ALT (SGPT) 157 U/L (8-55); AST (SGOT) 369 U/L (5-34); Alkaline Phosphatase 277 U/L (40-110); Anion Gap 10 mmol/L (10-20); BUN (Urea Nitrogen) 28 mg/dL (8.4-25.7); Bilirubin, Total 15.8 mg/dL (0.2-1.2); Calc. Creatinine Clearance 89 mL/min (70-130); Calcium 7.9 mg/dL (7.8-10.44); Carbon Dioxide 21 mmol/L (23-31); Chloride 105 mmol/L (98-107); Estimated GFR-MDRD 64; Globulin 3.1 g/dL (2.4-3.5); Glucose 84 mg/dL (80-115); Potassium 4.1 mmol/L (3.5-5.1); Protein, Total 5.1 g/dL (5.8-8.1); Sodium 132 mmol/L (136-145)
[2020-03-14] MEDS: Folic Acid 1 MG TAB PO SCH (08:07)
[2020-03-14] MEDS: Multivitamin W/ Minerals 1 TAB PO SCH (08:07)
[2020-03-14] MEDS: Vancomycin 1 GM in Premix Bag 1 BAG IVPB SCH ×2 (08:07→21:08)
[2020-03-14] MEDS: Cyanocobalamin (Vitamin B-12) 1,000 MCG TAB PO SCH (08:07)
[2020-03-14] MEDS: Thiamine 100 MG TAB PO SCH (08:08)
[2020-03-14] MEDS: Pantoprazole 40 MG VIAL IVP SCH (08:09)
[2020-03-14] MEDS ORDERED: Magnevist 469MG/ML 20 ML VIAL ONE (09:24)
[2020-03-14 11:19] LABS: Bilirubin 3+ (Negative); Blood, Urine 1+ (Negative); Clarity Clear (Clear); Glucose, Urine (Dipstick) Normal (Negative); Leukocyte Negative Leu/uL (Negative); Nitrite Negative (Negative); Protein, Urine (Dipstick) 10 mg/dL (Neg-Trace); RBC/HPF 0-3 HPF (0-3); Squamous Epithelial None Seen HPF (0-3)
[2020-03-14 11:20] LABS: Bacteria/HPF 1+ HPF (None Seen)
--- NOTE | 2020-03-14 13:08 | PDOC.HOSPP ---
- Subjective Encounter Date: 03/14/20 Encounter Time: 09:55 Subjective: pt was in the shower and later visited him. he has dark urine. CT of abdomen report discussed with him. pt understands the liver cancer and hep C complication and known hx of hematuria in the past. UA showed hematuria. - Objective Vital Signs & Weight: Vital Signs (12 hours) Temp Pulse Resp BP BP Pulse Ox 03/14/20 11:54 97.4 F L 86 21 H 135/87 95 03/14/20 08:01 97.8 F 83 16 145/81 H 97 03/14/20 04:47 97.8 F 78 18 123/76 96 Weight Weight 214 lb 6.4 oz Most Recent Monitor Data Heart Rate from ECG 84 NIBP 89/59 NIBP BP-Mean 69 Respiration from ECG 17 SpO2 95 I&O: 03/13/20 03/14/20 03/15/20 06:59 06:59 06:59 Intake Total 3470 3030 Output Total 530 2110 Balance 2940 920 Result Diagrams: 03/14/20 04:12 03/14/20 04:12 Hospitalist ROS - Medication Medications: Active Medications Generic Name Dose Route Start Last Admin Trade Name Freq PRN Reason Stop Dose Admin Acetaminophen 1,000 mg 03/10/20 19:29 03/12/20 13:13 Tylenol PO 1,000 mg Q6H PRN Administration Mild Pain (1-3) Cyanocobalamin 1,000 mcg 03/11/20 09:00 03/14/20 08:07 Vitamin B-12 PO 1,000 mcg DAILY MAURICIO Administration Folic Acid 1 mg 03/11/20 09:00 03/14/20 08:07 Folvite PO 1 mg DAILY MAURICIO Administration Cefepime HCl 2 gm/ Sodium 100 mls @ 200 mls/hr 03/11/20 06:00 03/14/20 04:50 Chloride IVPB 100 mls 0600,1800 MAURICIO Administration Potassium Chloride/Sodium Chloride 1,000 ml in 1,000 mls @ 75 mls/hr 03/12/20 12:45 03/13/20 22:58 Ns 0.9% W/ 20 Meq Kcl IV 1,000 mls .[id number] MAURICIO Administration Vancomycin HCl 1 gm/ Device 200 mls @ 200 mls/hr 03/13/20 20:00 03/14/20 08: 07 IVPB 200 mls 08,1999 MAURICIO Administration Iron/Minerals/Multivitamins 1 tab 03/11/20 09:00 03/14/20 08:07 Theragran M PO 1 tab DAILY MAURICIO Administration Pantoprazole Sodium 40 mg 03/13/20 09:00 03/14/20 08:09 Protonix IVP 40 mg DAILY MAURICIO Administration Sodium Chloride 10 ml 03/11/20 21:00 03/14/20 08:08 Flush - Normal Saline IVF 10 ml Q12HR MAURICIO Administration Thiamine HCl 100 mg 03/11/20 09:00 03/14/20 08:08 Thiamine PO 100 mg DAILY MAURICIO Administration - Exam General Appearance: awake alert, ill appearing Eye: PERRL ENT: normocephalic atraumatic Neck: supple, symmetric Heart: RRR, normal peripheral pulses Respiratory: CTAB, normal chest expansion Gastrointestinal: soft, normal bowel sounds, distended Neurological: no focal deficits Hosp A/P - Plan 1) Sepsis with encephalopathy and septic shock Code(s): A41.9 - SEPSIS, UNSPECIFIED ORGANISM; R65.21 - SEVERE SEPSIS WITH SEPTIC SHOCK; G93.40 - ENCEPHALOPATHY, UNSPECIFIED Status: Acute Plan: No dominant organism identified currently, continue Cefepime/Vancomycin another 24h then de-escalate, IVF's, serial BP monitoring ---------> off vanc on 4th -c w cefe for UTI UTI Hematuria - fw ont eh urine kamran - cw cefepime for now. (2) Type 2 myocardial infarction Code(s): I21.A1 - MYOCARDIAL INFARCTION TYPE 2 Status: Acute Plan: Secondary to demand ischemia in context of sepsis echo 1/.3 DD, ef 55% (3) Liver cirrhosis 2/2 alcohol and hep C Code(s): K74.60 - UNSPECIFIED CIRRHOSIS OF LIVER Status: Chronic Qualifiers: Hepatic cirrhosis type: alcoholic cirrhosis Ascites presence: without ascites Qualified Code(s): K70.30 - Alcoholic cirrhosis of liver without ascites Plan: Longstanding cirrhosis, GI know him well. no aggressive intervention fw in the clinic. (4) Liver masses Code(s): R16.0 - HEPATOMEGALY, NOT ELSEWHERE CLASSIFIED Status: Chronic Plan: Longstanding masses with concern for HCC - new masses based on CT of march 13. outpt follow up (5) Rhabdomyolysis, right thigh pain Code(s): M62.82 - RHABDOMYOLYSIS Status: Acute Plan: continue IVF's, serial CPK monitoring Improving his thigh pain may be d/t rhabdo. -CPK trending down - will also fw w.. inflamm..markers and US to r/o any concern for DVT.-----> neg (6) ETOH abuse Code(s): F10.10 - ALCOHOL ABUSE, UNCOMPLICATED Status: Chronic (7) Hepatitis C -has been treated in the past, per GI/ chronic hyponatremia d/t cirrhosis and etoh. continue antibiotics, PT/OT, social service technician, out of bed/ambulate, DVT proph w/ SCDs Consults: Palliative Care PT for functional assessment MVI, Thiamine, Folate Pulm, GI, ID, palliative on board. Full code Dispo - pt lives alone for the most part in a house, where the landlord also lives in the same house. family nearby but not close to him. CM/SW - C aid and outpatient fw for hematuria w.. urologist. wait 1 to 2 days make sure urine kamran results back. then if he has no other acute new issues, plan for dc home w.. C.
--- NOTE | 2020-03-14 13:51 | MRI ---
MRI OF THORACIC SPINE WITH AND WITHOUT CONTRAST: Date: 03-14-2020 Comparison: None History: Midline upper back pain with possible sepsis. Technique: Multiplanar, multisequence MR imaging of the thoracic spine is obtained with and without c ontrast. FINDINGS: The sagittal STIR imaging demonstrates no focal area of osseous marrow edema. No significant anteroli sthesis or retrolisthesis is noted within the thoracic spine. The thoracic cord demonstrates no abnormal signal on the T2 weighted imaging. There is no significant central canal stenosis within the thoracic spine at any level. In addition, there is no significant neural foraminal stenosis on either side at any level within the thoracic spine. There is multilevel disc space narrowing with disc desiccation and degenerative endplate change within the upper and mid thoracic spine, including T3-4 through T8-9. There is bilateral facet hypertrophy at T2-3, T3-4, T4-5 and T5-6 with mild associated multilevel neural foraminal stenosis . Post contrast imaging demonstrates no abnormal enhancement involving the contents of the thecal sac o r the imaged osseous structures. IMPRESSION: 1. Degenerative change within the thoracic spine as detailed above. No significant thoracic spine hoang tral canal or neural foraminal stenosis. No enhancing lesions or evidence of thoracic cord signal abn ormality. POS: [facility]
[2020-03-14] MEDS: NS 0.9% w/ 20 MEQ KCL 1,000 ML/1,000 ML BAG IV SCH (18:05)
[2020-03-15] MEDS: Cefepime 2 GM in Sodium Chloride 0.9% 100 ML IVPB SCH (05:34)
[2020-03-15 06:04] LABS: Band 10 % (5-11); Hemoglobin 10.6 g/dL (14.0-18.0); Lymphocytes 13 % (21-51); MDiff Complete? YES; Mean Corpuscular Hemoglobin 40.6 pg (27.0-31.0); Mean Platelet Volume 11.8 fL (7.4-10.4); Metamyelocyte 1 % (0-0); Monocytes 12 % (0-10); Neutrophil 64 % (42-75); Platelet Count 71 thou/uL (130-400); Platelet Morphology Comment Appears Decreased; Red Blood Cell (RBC) Count 2.62 mill/uL (4.70-6.10)
[2020-03-15 06:10] LABS: ALT (SGPT) 151 U/L (8-55); AST (SGOT) 325 U/L (5-34); Albumin 1.9 g/dL (3.4-4.8); Alkaline Phosphatase 277 U/L (40-110); Anion Gap 11 mmol/L (10-20); BUN (Urea Nitrogen) 27 mg/dL (8.4-25.7); Bilirubin, Total 15.9 mg/dL (0.2-1.2); CK (CPK) 204 U/L (30-200); Calc. Creatinine Clearance 103 mL/min (70-130); Calcium 7.8 mg/dL (7.8-10.44); Carbon Dioxide 19 mmol/L (23-31); Chloride 106 mmol/L (98-107); Estimated GFR-MDRD 75; Globulin 3.1 g/dL (2.4-3.5); Glucose 86 mg/dL (80-115); Potassium 4.2 mmol/L (3.5-5.1); Sodium 132 mmol/L (136-145)
[2020-03-15] MEDS: Thiamine 100 MG TAB PO SCH (08:25)
[2020-03-15] MEDS: Cyanocobalamin (Vitamin B-12) 1,000 MCG TAB PO SCH (08:25)
[2020-03-15] MEDS: Vancomycin 1 GM in Premix Bag 1 BAG IVPB SCH (08:25)
[2020-03-15] MEDS: Multivitamin W/ Minerals 1 TAB PO SCH (08:25)
[2020-03-15] MEDS: Folic Acid 1 MG TAB PO SCH (08:25)
[2020-03-15] MEDS: Pantoprazole 40 MG VIAL IVP SCH (08:26)
[2020-03-15] MEDS: NS 0.9% w/ 20 MEQ KCL 1,000 ML/1,000 ML BAG IV SCH (09:23)
[2020-03-15 10:35] LABS: Hemoglobin 12.2 g/dL (14.0-18.0); Mean Corpuscular Hemoglobin 39.6 pg (27.0-31.0); Mean Platelet Volume 11.9 fL (7.4-10.4); Platelet Count 72 thou/uL (130-400); RBC Distribution Width 17.7 % (11.5-14.5); Red Blood Cell (RBC) Count 3.07 mill/uL (4.70-6.10); White Blood Cell (WBC) Count 18.4 thou/uL (4.8-10.8)
[2020-03-15 10:57] LABS: Band 18 % (5-11); Lymphocytes 13 % (21-51); MDiff Complete? YES; Metamyelocyte 5 % (0-0); Monocytes 8 % (0-10); Myelocyte 3 % (0-0); Neutrophil 51 % (42-75); Polychromasia SLIGHT = 2-3 cells (100X) (0-2/hpf); Reactive Lymphocytes 2 % (0-10); Schistocytes SLIGHT = 2-5 cells (100X) (0-1/hpf); Target Cells SLIGHT = 2-5 cells (100X) (0-1/hpf)
--- NOTE | 2020-03-15 11:10 | PDOC.HOSPP ---
- Subjective Encounter Date: 03/15/20 Encounter Time: 09:15 Subjective: doing well, gets SOB with ambulation, but resting well in room air, hematuria work up as outpt. no home health care can be arranged due to insurance issue. pt states that someone helps him at home. - Objective Vital Signs & Weight: Vital Signs (12 hours) Temp Pulse Resp BP Pulse Ox 03/15/20 08:40 98.9 F 90 20 142/80 H 94 L 03/15/20 04:00 98.6 F 86 18 130/77 96 03/15/20 00:00 98.5 F 76 18 129/68 96 Weight Weight 214 lb 6.4 oz Most Recent Monitor Data Heart Rate from ECG 84 NIBP 89/59 NIBP BP-Mean 69 Respiration from ECG 17 SpO2 95 I&O: 03/14/20 03/15/20 03/16/20 06:59 06:59 06:59 Intake Total 3030 2720 600 Output Total 2110 1290 Balance 920 1430 600 Result Diagrams: 03/15/20 10:27 03/15/20 05:40 Hospitalist ROS - Medication Medications: Active Medications Generic Name Dose Route Start Last Admin Trade Name Freq PRN Reason Stop Dose Admin Acetaminophen 1,000 mg 03/10/20 19:29 03/12/20 13:13 Tylenol PO 1,000 mg Q6H PRN Administration Mild Pain (1-3) Cyanocobalamin 1,000 mcg 03/11/20 09:00 03/15/20 08:25 Vitamin B-12 PO 1,000 mcg DAILY MAURICIO Administration Folic Acid 1 mg 03/11/20 09:00 03/15/20 08:25 Folvite PO 1 mg DAILY MAURICIO Administration Cefepime HCl 2 gm/ Sodium 100 mls @ 200 mls/hr 03/11/20 06:00 03/15/20 05:34 Chloride IVPB 100 mls 0600,1800 MAURICIO Administration Potassium Chloride/Sodium Chloride 1,000 ml in 1,000 mls @ 75 mls/hr 03/12/20 12:45 03/15/20 09:23 Ns 0.9% W/ 20 Meq Kcl IV Not Given .[id number] MAURICIO Vancomycin HCl 1 gm/ Device 200 mls @ 200 mls/hr 03/13/20 20:00 03/15/20 08: 25 IVPB 200 mls 0800,2000 MAURICIO Administration Iron/Minerals/Multivitamins 1 tab 03/11/20 09:00 03/15/20 08:25 Theragran M PO 1 tab DAILY MAURICIO Administration Pantoprazole Sodium 40 mg 03/13/20 09:00 03/15/20 08:26 Protonix IVP 40 mg DAILY MAURICIO Administration Sodium Chloride 10 ml 03/11/20 21:00 03/15/20 08:26 Flush - Normal Saline IVF 10 ml Q12HR MAURICIO Administration Thiamine HCl 100 mg 03/11/20 09:00 03/15/20 08:25 Thiamine PO 100 mg DAILY MAURICIO Administration - Exam General Appearance: NAD, awake alert Eye: PERRL ENT: normocephalic atraumatic Neck: supple Heart: RRR Respiratory: CTAB, normal chest expansion Gastrointestinal: soft, non-distended, normal bowel sounds Hosp A/P - Plan 1) Sepsis with encephalopathy and septic shock Code(s): A41.9 - SEPSIS, UNSPECIFIED ORGANISM; R65.21 - SEVERE SEPSIS WITH SEPTIC SHOCK; G93.40 - ENCEPHALOPATHY, UNSPECIFIED Status: Acute Plan: No dominant organism identified currently, continue Cefepime/Vancomycin another 24h then de-escalate, IVF's, serial BP monitoring ---------> off vanc on 4th -c w cefe for UTI UTI Hematuria - fw ont eh urine kamran - cw cefepime for now. (2) Type 2 myocardial infarction Code(s): I21.A1 - MYOCARDIAL INFARCTION TYPE 2 Status: Acute Plan: Secondary to demand ischemia in context of sepsis echo 1/.3 DD, ef 55% (3) Liver cirrhosis 2/2 alcohol and hep C Code(s): K74.60 - UNSPECIFIED CIRRHOSIS OF LIVER Status: Chronic Qualifiers: Hepatic cirrhosis type: alcoholic cirrhosis Ascites presence: without ascites Qualified Code(s): K70.30 - Alcoholic cirrhosis of liver without ascites Plan: Longstanding cirrhosis, GI know him well. no aggressive intervention fw in the clinic. (4) Liver masses Code(s): R16.0 - HEPATOMEGALY, NOT ELSEWHERE CLASSIFIED Status: Chronic Plan: Longstanding masses with concern for HCC - new masses based on CT of march 13. outpt follow up (5) Rhabdomyolysis, right thigh pain Code(s): M62.82 - RHABDOMYOLYSIS Status: Acute Plan: continue IVF's, serial CPK monitoring Improving his thigh pain may be d/t rhabdo. -CPK trending down - will also fw w.. inflamm..markers and US to r/o any concern for DVT.-----> neg (6) ETOH abuse Code(s): F10.10 - ALCOHOL ABUSE, UNCOMPLICATED Status: Chronic (7) Hepatitis C -has been treated in the past, per GI/ chronic hyponatremia d/t cirrhosis and etoh. PT/OT, licensed social worker, out of bed/ambulate, DVT proph w/SCDs Consults: Palliative Care PT for functional assessment MVI, Thiamine, Folate Pulm, GI, ID, palliative on board. Full code Dispo - pt lives alone for the most part in a house, where the landlord also lives in the same house. family nearby but not close to him. CM/SW - HHC aid and outpatient fw for hematuria w.. urologist. wait 1 to 2 days make sure urine akmran results back. then if he has no other acute new issues, plan for dc home w.. HHC. 5th [facility] for nursing cannot be arranged, urine kamran no growth yet CK trended down dc'd abx ambulatory O2 status Home in am.
[2020-03-15 19:39] VITALS: BP 142/79; TEMP 98.6
[2020-03-16] MEDS: Multivitamin W/ Minerals 1 TAB PO SCH (09:50)
[2020-03-16] MEDS: Folic Acid 1 MG TAB PO SCH (09:50)
[2020-03-16] MEDS: Cyanocobalamin (Vitamin B-12) 1,000 MCG TAB PO SCH (09:50)
[2020-03-16] MEDS: Thiamine 100 MG TAB PO SCH (09:51)
[2020-03-16 10:19] LABS: Hemoglobin 10.8 g/dL (14.0-18.0); Mean Corpuscular HGB CONC 31.6 g/dL (32.0-36.0); Mean Corpuscular Hemoglobin 40.6 pg (27.0-31.0); Mean Platelet Volume 11.9 fL (7.4-10.4); Platelet Count 74 thou/uL (130-400); RBC Distribution Width 17.6 % (11.5-14.5); Red Blood Cell (RBC) Count 2.67 mill/uL (4.70-6.10)
[2020-03-16 10:34] LABS: Anion Gap 12 mmol/L (10-20); BUN (Urea Nitrogen) 24 mg/dL (8.4-25.7); Calc. Creatinine Clearance 106 mL/min (70-130); Calcium 7.9 mg/dL (7.8-10.44); Carbon Dioxide 17 mmol/L (23-31); Chloride 106 mmol/L (98-107); Estimated GFR-MDRD 78; Glucose 92 mg/dL (80-115); Potassium 4.2 mmol/L (3.5-5.1); Sodium 131 mmol/L (136-145)
[2020-03-16 10:42] LABS: Band 8 % (5-11); Lymphocytes 12 % (21-51); MDiff Complete? YES; Macrocytosis MODERATE=16-30 cells (100X) (0-5/hpf); Metamyelocyte 1 % (0-0); Monocytes 15 % (0-10); Myelocyte 1 % (0-0); Neutrophil 63 % (42-75); Platelet Morphology Comment Appears Decreased; Target Cells SLIGHT = 2-5 cells (100X) (0-1/hpf)
--- NOTE | 2020-03-16 13:18 | PDOC.PALCO ---
Palliative Care Consult - Consult Details Requesting Physician: Dr Foster Reason for Consult: goals of care, complex decision-making - Pertinent HPI 64 year old male who was transported to [facility] emergency room for evaluation after his brother alerted EMS. Mr Cosby had increasing difficulty caring for himself, with decrease in ability to ambulate, decrease in appetite and weakness. Longstanding history of alcohol abuse, polysubstance abuse with subsequent cirrhosis. Emergency room evaluation found sepsis, elevated lactic acid, rhabdomyolysis, and transaminitis. Admitted for further medical management. - Pertinent PMH Alcohol abuse, Hepatic cirrhosis, hypertension, hepatitis C, Polysubstance abuse , hepatic encephalopathy, physical deconditioning, bipolar - Social History Smoking Status: Former smoker Alcohol Use: heavy, daily Drug Use History: other (History of drug use, not certain of current use) Living Situation: independent, other (Rents a room from a "Landlord" who is on site intermittatly) - Medications MAR Reviewed: Yes - Allergies Allergies/Adverse Reactions: Allergies Allergy/AdvReac Type Severity Reaction Status Date / Time No Known Drug Allergies Allergy Verified 08/29/19 09:51 - Subjective Awake, alert, short of breath although denies. Complains of "feeling cold". - ROS Constitutional: alert, weakness ENT: other (Denies sore throat, congestion) Respiratory: other (Denies shortness of breath, cough) Cardiology: other (denies chest pain or palpitations) Gastrointestinal: bloating Genitourinary: other (denies hematuria, dysuria) Musculoskeletal: arthritis/arthralgias Skin: jaundice - Objective Vital Signs: Vital Signs - Most Recent Temp Pulse Resp BP Pulse Ox 98.6 F 115 H 20 142/79 H 90 L 03/15/20 19:39 03/16/20 08:47 03/15/20 19:39 03/15/20 19:39 03/16/20 08:47 Palliative Performance Scale: 40 - Physical Exam Constitutional: ill appearing HEENT: EOMI, moist MMs, poor dentition, scleral icterus Respiratory: labored respirations Cardiovascular: RRR Deviation from normal: Distended, tympani on percussion Genitourinary: continent Musculoskeletal: edema present, diffuse muscle atrophy Neurology: moves all 4 limbs, no focal deficits Skin: cap refill <2 seconds Deviation from normal: icteric Psychiatric: A&O x 3 - Problem List (1) Palliative care encounter Code(s): Z51.5 - ENCOUNTER FOR PALLIATIVE CARE Current Visit: Yes Status: Acute (2) Recurrent falls Code(s): R29.6 - REPEATED FALLS Current Visit: No Status: Acute (3) Bipolar affective disorder Code(s): F31.9 - BIPOLAR DISORDER, UNSPECIFIED Current Visit: No Status: Chronic (4) ETOH abuse Code(s): F10.10 - ALCOHOL ABUSE, UNCOMPLICATED Current Visit: No Status: Chronic (5) Hepatitis C Code(s): B19.20 - UNSPECIFIED VIRAL HEPATITIS C WITHOUT HEPATIC COMA Current Visit: No Status: Chronic Qualifiers: Viral hepatitis chronicity: chronic Hepatic coma status: without hepatic coma Qualified Code(s): B18.2 - Chronic viral hepatitis C (6) Liver cirrhosis Code(s): K74.60 - UNSPECIFIED CIRRHOSIS OF LIVER Current Visit: No Status: Chronic Qualifiers: Hepatic cirrhosis type: alcoholic cirrhosis Ascites presence: without ascites Qualified Code(s): K70.30 - Alcoholic cirrhosis of liver without ascites (7) Liver masses Code(s): R16.0 - HEPATOMEGALY, NOT ELSEWHERE CLASSIFIED Current Visit: No Status: Chronic - Plan/Recommendations Plan: Follow up conversation in relation to safe discharge and goal of care. Mr Cosby looking forward to returning home. Again states he is not interested in "AA Classes", when asked how he will avoid alcohol consumption he stated he will drink sodas. Discussed significant weakness and observed shortness of breath. States that will rest when he needs to. Appears to have a disconnect between multiple morbidities, disease trajectory and importance of compliance with suggested therapies. Brother is MELODIE, has been in contact with CM and staff. *Continue to remain with full resuscitation measures *Return to home setting independently, refuses discharge suggestions of skilled , rehab or alcohol treatment. Communicated with CM [60] minutes spent on this encounter with >50% of the time in counseling and coordination of care. Thank you for this very appropriate consult.
--- NOTE | 2020-03-16 17:37 | DIS ---
DATE OF ADMISSION: 03/10/2020 DATE OF DISCHARGE: 03/16/2020 DISCHARGE DIAGNOSES: 1. Sepsis with septic shock, metabolic encephalopathy that is resolved. 2. Non-ST elevation myocardial infarction type 2. 3. Hepatic cirrhosis. 4. Coagulopathy secondary to hepatic cirrhosis. 5. Rhabdomyolysis. 6. Overall deconditioning. 7. Polysubstance abuse. 8. Chronic hepatitis C. 9. Chronic back pain. 10. Medication noncompliance. 11. Bipolar disorder. 12. Abnormal CT and MRI showing liver masses felt to be regenerating liver tissues. DISCHARGE MEDICATIONS: 1. Benzonatate 100 mg three times a day. 2. Benadryl 25 mg as needed every 6 hours. 3. Docusate 100 mg twice a day. 4. Pantoprazole 20 mg daily. 5. Propranolol 10 mg daily. 6. Spironolactone 50 mg daily. HOSPITAL COURSE: A 64-year-old male, found down in his house in feces and not eating for 3 days. He had an increased weakness both in his thighs and difficulty standing up. He has a long history of alcohol abuse in addition to polysubstance abuse with cocaine, heroin , and marijuana. After admission, he was cleaned up and started on broad-spectrum antibiotic with cefepime as well as vancomycin. He was initially requiring vasopressor support. Over time, he improved well. He also has a coagulopathy secondary to cirrhosis for which he received 6 packs of platelets in the emergency room, in addition to another 2 units on the floor. The patient also had rhabdomyolysis and it improved from level of 126 after aggressive hydration. The patient had extensive workup regarding his liver a few months ago. He was followed with AMOL Macdonald. There was no recommendation from his point in terms of current hospital stay. He does have ongoing jaundice, mildly icteric, and his chemistry panel reflective of ongoing disease. His AST is 325, ALT 151, alkaline phosphatase 277. His CK is 126. Sodium 131, which is chronic. His white count improved to 16, 000. Though he has above liver dysfunction, during these ast three days, he is doing well. He has no labile mentation. He is ambulating with walker and supervision. 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 He does gets home health for free. recovery manager is looking into it and arranging the same. Since AMOL felt there is no further workup required in terms of his liver, the patient will be discharged as he is mentally and hemodynamically stable. His issues are mostly social support and compliance with healthcare followup. Having no proper insurance limits his ability and visitations to the clinic. However, this has been explained and strongly encouraged him to follow up with the clinic appointments. The patient is stable to go home today. DISCHARGE INSTRUCTIONS: 1. Activity as tolerated. 2. Regular diet. 3. Follow up with Gastroenterology, Dr. Pat, in 1 to 2 weeks. 4. Follow up with primary care physician in 1 week. Again, I do not have the primary care physician's information in the system. Job ID: [id number] MTDD
== END 2020-03-16 13:13 | disposition home or self-care (01) | DRG 871 ==
LOC: ERS 16:22 → CCU 19:02 → 2NO 03-11 15:47 → ONC 03-14 13:26
PROVIDERS: ADMIT Family Medicine; ATTEND Family Medicine
PROC: 3E033XZ Introduction of Vasopressor into Peripheral Vein, Percutaneous Approach (ICD-10-PCS; principal; 2020-03-10)
PROC: 02HV33Z Insertion of Infusion Device into Superior Vena Cava, Percutaneous Approach (ICD-10-PCS; 2020-03-10)
PROC: 30233L1 Transfusion of Nonautologous Fresh Plasma into Peripheral Vein, Percutaneous Approach (ICD-10-PCS; 2020-03-10)
PROC: 30233K1 Transfusion of Nonautologous Frozen Plasma into Peripheral Vein, Percutaneous Approach (ICD-10-PCS; 2020-03-10)
DX: A41.9 Sepsis, unspecified organism (principal); R65.21 Severe sepsis with septic shock; G93.41 Metabolic encephalopathy; I21.A1 Myocardial infarction type 2; D68.4 Acquired coagulation factor deficiency; M62.82 Rhabdomyolysis; Z51.5 Encounter for palliative care; C22.0 Liver cell carcinoma; N39.0 Urinary tract infection, site not specified; E87.1 Hypo-osmolality and hyponatremia; K70.30 Alcoholic cirrhosis of liver without ascites; B18.2 Chronic viral hepatitis C; M54.9 Dorsalgia, unspecified; I11.0 Hypertensive heart disease with heart failure; I50.9 Heart failure, unspecified; J44.9 Chronic obstructive pulmonary disease, unspecified; G89.29 Other chronic pain; F31.9 Bipolar disorder, unspecified; F14.10 Cocaine abuse, uncomplicated; F12.10 Cannabis abuse, uncomplicated; F11.10 Opioid abuse, uncomplicated; F10.20 Alcohol dependence, uncomplicated; D73.1 Hypersplenism; R29.6 Repeated falls; E88.09 Other disorders of plasma-protein metabolism, not elsewhere classified; Z91.14 Patient's other noncompliance with medication regimen; Z90.49 Acquired absence of other specified parts of digestive tract; Z79.899 Other long term (current) drug therapy; Z87.891 Personal history of nicotine dependence
CPT/HCPCS: 36415; 36430; 36556; 70450; 71045; 72157; 74160; 76705; 80048; 80053; 80202; 80307; 81001; 82140; 82533; 82550; 82553; 83605; 83690; 83880; 84443; 84484; 85007; 85025; 85027; 85610; 85652; 86140; 86850; 86900; 86901; 87040; 87086; 93005; 93306; 93970; 96365; 96366; 96375; A9579; C9113; J0692; J0696; J1100; J3370; J3411; J3480; J3490; J7042; J7050; P9059; Q9967

== ENCOUNTER 2020-05-06 08:26 | Outpatient (CLI) | payer MEDICARE, MEDICAID ==
--- NOTE | 2020-05-06 10:48 | CT ---
HEAD CT WITHOUT CONTRAST: DATE: 05/06/2020. COMPARISON: 04/02/2020, 04/01/2020, 03/10/2020. HISTORY: Evaluate subdural hematoma. TECHNIQUE: Axial CT imaging obtained at 5 mm intervals from vertex through the skull base without contrast. FINDINGS: The imaged paranasal sinuses and mastoid air cells are well aerated. There is no displaced calvarial fracture. There is periventricular and deep white matter hypodensity, evidence of small-vessel disease. There is a small hypodense fluid collection within the subdural space on the left, most prominent in the frontal region suggesting a chronic subdural hematoma. This measures up to approximately 5 mm in transverse dimension, significantly decreased in size when compared to the 04/01 and 04/02/2020 examin ations. There is an area of relative hyperdensity posterior to the petrous apex and medial to the mastoid air cells on the right, best seen on axial image 10, of uncertain significance. This appears similar wh en compared to the 04/01/2020 examination. It is uncertain whether this represents volume averaging w ith the brain parenchyma or an extraaxial mass in this region. This area of increased density measur es 1.6 x 0.9 cm, best seen on axial image 10. IMPRESSION: 1. Evidence of small-vessel disease. Small chronic left subdural hematoma, decreased in conspicuity when compared to prior imaging. 2. Area of relative hyperdensity within the posterior fossa medial to the right mastoid air cells as detailed above. Etiology/significance is uncertain. It is uncertain whether this represents artifa ct or a true extraaxial mass. Recommend further assessment with followup nonemergent brain MRI. CODE T POS: [facility]
== END 2020-05-06 08:27 | disposition home or self-care (01) ==
LOC: BICCT 08:26
PROVIDERS: ATTEND Neurological Surgery
DX: I62.03 Nontraumatic chronic subdural hemorrhage (principal); I67.89 Other cerebrovascular disease; R90.89 Other abnormal findings on diagnostic imaging of central nervous system
CPT/HCPCS: 70450

== ENCOUNTER 2020-07-12 16:49 | Inpatient (IN) | payer MEDICARE, MEDICAID, OTHER ==
[2020-07-12 18:09] LABS: Bilirubin Negative (Negative); Blood, Urine Trace (Negative); Clarity Clear (Clear); Glucose, Urine (Dipstick) Normal (Negative); Ketone, Urine Negative (Negative); Leukocyte 75 Leu/uL (Negative); Nitrite Negative (Negative); Protein, Urine (Dipstick) Negative (Neg-Trace); Specific Gravity, Urine 1.012 (1.002-1.036); pH, Urine 6.5 (5.0-9.0)
[2020-07-12 18:10] LABS: Bacteria/HPF None Seen HPF (None Seen); Squamous Epithelial None Seen HPF (0-3)
[2020-07-12 18:11] LABS: INR-International Normal Ratio 1.4
[2020-07-12 18:12] LABS: #Basophils 0.2 thou/uL (0.0-0.2); #Monocytes 1.2 thou/uL (0.11-0.59); #Neutrophils 2.7 thou/uL (1.40-6.50); %Basophils 1.9 % (0.0-1.0); %Eosinophils 0.4 % (0.0-10.0); %Lymphocytes 49.4 % (21.0-51.0); %Monocytes 14.6 % (0.0-10.0); %Neutrophils 33.8 % (42.0-75.0); Hemoglobin 12.1 g/dL (14.0-18.0); Mean Corpuscular HGB CONC 32.8 g/dL (32.0-36.0); Mean Corpuscular Hemoglobin 36.9 pg (27.0-31.0); Mean Platelet Volume 9.6 fL (7.4-10.4); Platelet Count 116 thou/uL (130-400); RBC Distribution Width 14.7 % (11.5-14.5); White Blood Cell (WBC) Count 8.1 thou/uL (4.8-10.8)
[2020-07-12 18:30] LABS: ALT (SGPT) 35 U/L (8-55); AST (SGOT) 39 U/L (5-34); Albumin 2.7 g/dL (3.4-4.8); Alkaline Phosphatase 224 U/L (40-110); Anion Gap 13 mmol/L (10-20); BUN (Urea Nitrogen) 20 mg/dL (8.4-25.7); Bilirubin, Total 3.2 mg/dL (0.2-1.2); Calc. Creatinine Clearance 0 mL/min (70-130); Calcium 8.7 mg/dL (7.8-10.44); Carbon Dioxide 24 mmol/L (23-31); Chloride 108 mmol/L (98-107); Estimated GFR-MDRD 48; Globulin 3.7 g/dL (2.4-3.5); Glucose 141 mg/dL (80-115); Protein, Total 6.4 g/dL (5.8-8.1); Sodium 141 mmol/L (136-145)
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
--- NOTE | 2020-07-12 19:08 | CT ---
Exam: Head CT without contrast HISTORY: Encephalopathy. Frequent falls. COMPARISON: 06/23/2020, 05/12/2020, 05/06/2020 FINDINGS: Hemorrhage: Subtle hyperdensity involving the left parietal cortex measuring 0.5 cm. Brain parenchyma: Cortical delgado-white matter differentiation is preserved. No mass effect or midline shift. Basilar cisterns are patent.Stable chronic small vessel ischemic changes. Ventricular system: Ventricles and sulci are patent and symmetric. Calvarium: Intact. Sinuses and mastoid air cells: Adequate aeration. IMPRESSION: 1. Subtle hyperdensity involving the left parietal cortex. Small intraparenchymal hematoma cannot be excluded.
--- NOTE | 2020-07-12 19:12 | CT ---
Exam: CT cervical spine without contrast HISTORY: Trauma. Pain. Frequent falls COMPARISON: 08/28/2019 FINDINGS: No craniocervical dissociation. Appropriate alignment of the lateral masses of C1 and C2. Intact odon toid process Appropriate alignment of the facets. Soft tissue neck structures: No mass, lymphadenopathy or hematoma. No prevertebral soft tissue swelli ng. Upper mediastinum and lung apices: No acute abnormality Central spinal canal: There are varying degrees of central canal stenosis and neural foraminal narrow ing on the basis of degenerative change. Mild to moderate central canal stenosis at C3-C4, C4-C5, C5-C6 secondary to discussed by complex is an ligamentum flavum thickening. Technique limits evaluati on. Vertebral bodies: Cervical spine vertebral body height is maintained. No fracture. IMPRESSION: 1. No cervical spine fracture. 2. Varying degrees of central canal stenosis and foramina the basis of degenerative change. Technique limits evaluation. Results the head CT and cervical spine CT discussed with Dr. Gray 07/12/2020 at 7:08 PM Code CR
--- NOTE | 2020-07-12 19:53 | RAD ---
Exam: Chest one view HISTORY:Altered mental status Comparison: 06/23/2020 FINDINGS: Cardiac silhouette: Normal Aorta: Unremarkable Pulmonary vessels: Normal Costophrenic angles: Clear LUNGS: No masses or consolidation. Pneumothorax: None Osseous abnormalities: None IMPRESSION: No acute cardiopulmonary process.
[2020-07-12 19:55] LABS: Base Excess-Venous 0.9 mmol/L (-2.0 to 3.0); Bicarbonate (HCO3v) 26.6 mmol/L (22.0-28.0); CO2 Tension (PvCO2) 45.6 mmHg (40.0-50.0); Calcium, Ionized 1.27 mmol/L (See Comments:); Chloride 109 mmol/L (98-107); Hemoglobin - Calc 12.4 g/dL (14.0-18.0); Potassium 3.5 mmol/L (3.5-5.1); Sodium 146 mmol/L (138-145); vO2 Saturation-calc 88.8 % (60.0-85.0)
[2020-07-12] MEDS ORDERED: Ondansetron PF 4 MG/2 ML Vial IVP PRN (20:13)
[2020-07-12] MEDS ORDERED: Ondansetron ODT 4 MG TAB PO PRN (20:13)
[2020-07-12] MEDS ORDERED: Calcium Carbonate 500 MG ChewTAB PO PRN (20:13)
[2020-07-12] MEDS ORDERED: hydrALAZINE 20 MG/ML VIAL SLOW IVP PRN ×2 (20:20→20:31)
[2020-07-12 21:01] LABS: Lactic Acid 2.1 mmol/L (0.5-2.2)
[2020-07-12 21:02] LABS: Amphetamine Not Detected (NotDetected); Barbiturates Screen Not Detected (NotDetected); Benzodiazepine Screen Not Detected (NotDetected); Cocaine Metabolite Screen Not Detected (NotDetected); Medtox Control Line Valid? VALID (VALID); Medtox Reader # READER 1; Methadone Not Detected (NotDetected); Methamphetamine Not Detected (NotDetected); Opiate Screen Not Detected (NotDetected); Oxycodone Screen Not Detected (NotDetected); Phencyclidine (PCP) Not Detected (NotDetected); THC/Cannabinoid Screen Not Detected (NotDetected); Tricyclic Screen Not Detected (NotDetected)
[2020-07-12 21:09] LABS: Troponin I 0.013 ng/mL (< 0.028)
[2020-07-12] MEDS ORDERED: HOLD ALL BLOOD THINNERS FS SCH (21:45)
[2020-07-12] MEDS: Sodium Chloride 0.9% 1,000 ML IV SCH (22:40)
[2020-07-12 23:23] VITALS: BMI 24.0
[2020-07-13 00:47] LABS: Troponin I 0.013 ng/mL (< 0.028)
[2020-07-13] MEDS ORDERED: cefTRIAXone\\ROCEPHIN 1 GM in Sodium Chloride 0.9% 100 ML IVPB SCH (03:00)
[2020-07-13 04:02] LABS: ALT (SGPT) 31 U/L (8-55); AST (SGOT) 36 U/L (5-34); Albumin 2.3 g/dL (3.4-4.8); Alkaline Phosphatase 202 U/L (40-110); Anion Gap 11 mmol/L (10-20); BUN (Urea Nitrogen) 20 mg/dL (8.4-25.7); Calc. Creatinine Clearance 66 mL/min (70-130); Calcium 8.7 mg/dL (7.8-10.44); Carbon Dioxide 22 mmol/L (23-31); Chloride 111 mmol/L (98-107); Estimated GFR-MDRD 63; Globulin 3.7 g/dL (2.4-3.5); Glucose 110 mg/dL (80-115); Potassium 3.3 mmol/L (3.5-5.1); Sodium 141 mmol/L (136-145)
[2020-07-13 04:58] LABS: Hemoglobin 11.4 g/dL (14.0-18.0); Mean Corpuscular HGB CONC 33.3 g/dL (32.0-36.0); Mean Corpuscular Hemoglobin 36.7 pg (27.0-31.0); Mean Platelet Volume 10.2 fL (7.4-10.4); Platelet Count 112 thou/uL (130-400); RBC Distribution Width 15.1 % (11.5-14.5); Red Blood Cell (RBC) Count 3.12 mill/uL (4.70-6.10); White Blood Cell (WBC) Count 9.7 thou/uL (4.8-10.8)
[2020-07-13 04:59] LABS: Band 1 % (5-11); Eosinophils 1 % (0-10); Lymphocytes 59 % (21-51); MDiff Complete? YES; Macrocytosis SLIGHT = 6-15 cells (100X) (0-5/hpf); Monocytes 10 % (0-10); Neutrophil 29 % (42-75); Nucleated RBC 1 % (0); Schistocytes SLIGHT = 2-5 cells (100X) (0-1/hpf); Target Cells SLIGHT = 2-5 cells (100X) (0-1/hpf)
[2020-07-13] MEDS ORDERED: Prevnar 13-Val Conj/PF 0.5 ML SYRINGE IM ONE (09:00)
--- NOTE | 2020-07-13 09:00 | CT ---
CT BRAIN WITHOUT CONTRAST: Date: 07/13/2020 HISTORY: Weakness, follow-up exam from previous day. Encephalopathy. Frequent falls. COMPARISON: Previous day. FINDINGS: The tiny, about 5 mm, subtle hyperdensity involving the right parietal cortex is essentially unchange d. The remainder of the exam also remains stable. IMPRESSION: Stable exam. Further evaluation with MRI would be helpful. POS: OFF
[2020-07-13 12:56] LABS: SARS-CoV-2 MS2 Positive; SARS-CoV-2 N Gene Negative; SARS-CoV-2 S Gene Negative; SARS-CoV-2 by NAA Not Detected (NotDetected); SARS-CoV-2 orf1ab Negative
[2020-07-13] MEDS ORDERED: Furosemide 40 MG TAB PO SCH (13:45)
[2020-07-13] MEDS ORDERED: Propranolol 10 MG TAB PO SCH (13:45)
[2020-07-13] MEDS: Sodium Chloride 0.9% 1,000 ML IV SCH (17:00)
[2020-07-13] MEDS ORDERED: Electrolyte Replacement Protocol FS SCH (19:15)
--- NOTE | 2020-07-13 19:18 | PDOC.HOSPP ---
- Subjective Encounter Date: 07/13/20 Encounter Time: 09:00 Subjective: no overnight events. this morning, feeling better overall and has no complaints. endorses having 3 BMs a week in intermediate. - Objective Vital Signs & Weight: Vital Signs (12 hours) Temp Pulse Pulse Pulse Resp BP BP 07/13/20 09:55 73 72 117/71 132/69 07/13/20 08:00 97.4 F L 71 18 BP Pulse Ox 07/13/20 09:55 07/13/20 08:00 129/71 96 Weight Weight 163 lb 3.2 oz I&O: 07/12/20 07/13/20 07/14/20 06:59 06:59 06:59 Intake Total 500 Output Total 200 Balance 300 Result Diagrams: 07/13/20 03:33 07/13/20 03:33 Hospitalist ROS - Review of Systems Constitutional: denies: chills, sweats Respiratory: denies: cough, shortness of breath, SOB with excertion Cardiovascular: reports: edema. denies: chest pain, palpitations, orthopnea Gastrointestinal: denies: nausea, vomiting, abdominal pain, diarrhea, constipation, melena, hematochezia Genitourinary: denies: dysuria, frequency, hematuria - Medication Medications: Active Medications Generic Name Dose Route Start Last Admin Trade Name Caseyq PRN Reason Stop Dose Admin Ceftriaxone Sodium 1 gm/ 100 mls @ 200 mls/hr 07/13/20 03:00 07/13/20 03:24 Sodium Chloride IVPB 100 mls 0300 MAURICIO Administration Lactulose 30 gm 07/12/20 21:00 07/13/20 18:16 Lactulose PO 30 gm QID MAURICIO Administration - Exam General Appearance: NAD, awake alert Eye: scleral icterus ENT: normocephalic atraumatic, moist mucosa Heart: RRR, no murmur, no gallops, no rubs Respiratory: CTAB, no wheezes, no rales, no ronchi Gastrointestinal: soft, non-tender, non-distended, normal bowel sounds Extremities: 1+ LE edema, 2+ LE edema Psychiatric - other findings: slow speech but A&O x 3 Hosp A/P - Plan #Grade 1 hepatic encephalopathy -restart lactulose, rifaximin; titrate to 3-4 bowel movements/day #R parietal hyperdensity -patient's brother endorses being told of such a finding on imaging for months #UTI continue rocephin DNAR per brother and medical decision maker ELOS: 1-2 nights.
[2020-07-13] MEDS ORDERED: Potassium Chloride 40 MEQ in Sodium Chloride 0.9% 250 ML 250 ML IVPB SCH (19:30)
[2020-07-13] MEDS: Rifaximin 550 MG TAB PO SCH (20:41)
[2020-07-14 04:54] LABS: Anion Gap 12 mmol/L (10-20); BUN (Urea Nitrogen) 17 mg/dL (8.4-25.7); Calc. Creatinine Clearance 59 mL/min (70-130); Calcium 8.7 mg/dL (7.8-10.44); Carbon Dioxide 18 mmol/L (23-31); Chloride 110 mmol/L (98-107); Estimated GFR-MDRD 55; Glucose 89 mg/dL (80-115); Magnesium 1.8 mg/dL (1.6-2.6); Potassium 3.9 mmol/L (3.5-5.1); Sodium 136 mmol/L (136-145)
[2020-07-14] MEDS ORDERED: Magnesium 2 GM/50 ML 2 GM in Premix Bag 1 BAG IVPB SCH (07:30)
[2020-07-14] MEDS: Furosemide 40 MG TAB PO SCH (08:58)
[2020-07-14] MEDS: Rifaximin 550 MG TAB PO SCH ×2 (08:58→20:49)
[2020-07-14] MEDS: Propranolol 10 MG TAB PO SCH (08:58)
[2020-07-14] MEDS: Spironolactone 100 MG TAB PO SCH (08:58)
--- NOTE | 2020-07-14 15:55 | PDOC.HOSPP ---
- Subjective Encounter Date: 07/14/20 Encounter Time: 07:00 Subjective: no overnight events. this morning, drowsier and more confused. Has no complaints. - Objective Vital Signs & Weight: Vital Signs (12 hours) Temp Pulse Resp BP BP Pulse Ox 07/14/20 13:52 139/76 07/14/20 11:48 98 F 72 18 116/65 97 07/14/20 07:35 98.7 F 76 20 134/76 99 07/14/20 07:20 99 Weight Weight 163 lb 3.2 oz I&O: 07/13/20 07/14/20 07/15/20 06:59 06:59 06:59 Intake Total 500 1800 600 Output Total 200 300 Balance 300 1500 600 Result Diagrams: 07/13/20 03:33 07/14/20 04:13 Additional Labs: Accuchecks 07/13/20 20:38 POC Glucose 142 H Hospitalist ROS - Review of Systems Respiratory: denies: cough, shortness of breath, hemoptysis, pleuritic pain Cardiovascular: denies: chest pain, palpitations, orthopnea, paroxysmal noc. dyspnea Gastrointestinal: denies: nausea, vomiting, abdominal pain, melena, hematochezia Genitourinary: denies: dysuria, hematuria - Medication Medications: Active Medications Generic Name Dose Route Start Last Admin Trade Name Freq PRN Reason Stop Dose Admin Furosemide 40 mg 07/14/20 07:30 07/14/20 08:58 Lasix PO 40 mg DAILY-AC MAURICIO Administration Lactulose 30 gm 07/12/20 21:00 07/14/20 13:20 Lactulose PO 30 gm QID MAURICIO Administration Pantoprazole Sodium 40 mg 07/14/20 09:00 07/14/20 08:58 Protonix PO 40 mg DAILY MAURICIO Administration Propranolol HCl 10 mg 07/14/20 09:00 07/14/20 08:58 Inderal PO 10 mg DAILY MAURICIO Administration Rifaximin 550 mg 07/13/20 21:00 07/14/20 08:58 Xifaxan PO 550 mg BID MAURICIO Administration Sodium Chloride 10 ml 07/12/20 20:13 07/14/20 08:59 Flush - Normal Saline IVF 10 ml PRN PRN Administration Saline Flush Spironolactone 100 mg 07/14/20 08:00 09/03/20 08:58 Aldactone PO 100 mg QAM-WM MAURICIO Administration - Exam General Appearance: NAD, awake alert Heart: RRR, no murmur, no gallops, no rubs Respiratory: CTAB, no wheezes, no rales, no ronchi Gastrointestinal: soft, non-tender, non-distended, normal bowel sounds Extremities: 2+ LE edema Psychiatric: normal affect, normal behavior, oriented to person (not to time or place (worse than yesterday)) Hosp A/P - Plan #Grade 1 hepatic encephalopathy -had 3 bowel movements overnight -continue lactulose, rifaximin; titrate to 3-4 bowel movements/day -low protein diet #R parietal hyperdensity -patient's brother endorses being told of such a finding on imaging for months #UTI UCx -ve; stop rocephin DNAR per brother and medical decision maker ELOS: 1-2 nights.
[2020-07-15 05:06] LABS: Anion Gap 11 mmol/L (10-20); BUN (Urea Nitrogen) 13 mg/dL (8.4-25.7); Calc. Creatinine Clearance 69 mL/min (70-130); Calcium 8.5 mg/dL (7.8-10.44); Carbon Dioxide 18 mmol/L (23-31); Chloride 107 mmol/L (98-107); Estimated GFR-MDRD 66; Glucose 119 mg/dL (80-115); Potassium 3.7 mmol/L (3.5-5.1); Sodium 132 mmol/L (136-145)
[2020-07-15] MEDS ORDERED: Magnesium 2 GM/50 ML 2 GM in Premix Bag 1 BAG IVPB SCH (06:30)
[2020-07-15 07:49] VITALS: TEMP 98.2
[2020-07-15] MEDS: Propranolol 10 MG TAB PO SCH (08:45)
[2020-07-15] MEDS: Furosemide 40 MG TAB PO SCH (08:45)
[2020-07-15] MEDS: Spironolactone 100 MG TAB PO SCH (08:45)
[2020-07-15] MEDS: Rifaximin 550 MG TAB PO SCH (08:45)
[2020-07-15 16:00] VITALS: BP 110/70
--- NOTE | 2020-07-15 23:29 | DIS ---
DATE OF ADMISSION: 07/13/2020 DATE OF DISCHARGE: 07/15/2020 HOSPITAL COURSE: Mr. Cosby is a 65-year-old male with medical history of cirrhosis, hepatitis C, who presented for drowsiness, slurred speech, and a fall from his custodial. He was diagnosed with grade 1 hepatic encephalopathy due to under dosage of his lactulose. He was started on lactulose and rifampin and improved promptly. His ammonia level went from 140 to 30 on the second day of hospitalization. The patient was discharged back to his custodial after the brother was modified with specific written instructions regarding dosing of lactulose to the custodial. At time of discharge, the patient was hemodynamically stable and had no complaints. PHYSICAL EXAMINATION: VITAL SIGNS: Blood pressure 110/70, pulse 67, respiratory rate 18, oxygen saturation 97% on room air, and temperature 98.2. GENERAL: Lying comfortably in bed, awake and alert. HEART: Regular rate and rhythm. No murmurs, gallops, or rubs. RESPIRATORY: Clear to auscultation bilaterally. No wheezing, rales, or rhonchi. GI: Soft, nontender, and nondistended. Normal bowel sounds. EXTREMITIES: +2 lower extremity edema. PSYCHIATRIC: Proper mood and affect. Alert and oriented x3. MEDICATION LIST: New medications, no new medications. Modified medications, no modified medications. Discontinued medications, no discontinued medications. Continued medications; 1. Lasix 40 mg daily. 2. Spironolactone 100 mg daily. 3. Lactulose 20 g p.o. t.i.d., titrate to 3 to 4 bowel movements daily. 4. Pantoprazole 20 mg daily. 5. Propranolol 10 mg daily. 6. Rifaximin 550 mg b.i.d. Job ID: [id number]
== END 2020-07-15 16:08 | DRG 442 ==
LOC: ERS 16:49 → 2NO 19:05 → OBSVTOIN 07-13 14:25 → T4-B 07-14 15:49
PROVIDERS: ADMIT Student in an Organized Health Care Education/Training Program; ATTEND Student in an Organized Health Care Education/Training Program
DX: K71.10 Toxic liver disease with hepatic necrosis, without coma (principal); N17.9 Acute kidney failure, unspecified; E87.2 Acidosis; T47.3X6A Underdosing of saline and osmotic laxatives, initial encounter; Z91.138 Patient's unintentional underdosing of medication regimen for other reason; K74.60 Unspecified cirrhosis of liver; R39.15 Urgency of urination; J44.9 Chronic obstructive pulmonary disease, unspecified; I10 Essential (primary) hypertension
CPT/HCPCS: 36415; 36416; 36600; 70450; 71045; 72125; 80048; 80053; 80306; 81003; 81015; 82140; 82330; 82550; 82803; 83605; 83735; 84484; 85025; 85610; 85730; 87086; 87635; 93005; J0696; J3475; J3480; J3490; J7050; U0003

== ENCOUNTER 2020-08-28 09:22 | Emergency (ER) | payer OTHER ==
[2020-08-28 10:59] LABS: Bacteria/HPF None Seen HPF (None Seen); Bilirubin Negative (Negative); Blood, Urine 1+ (Negative); Clarity Clear (Clear); Glucose, Urine (Dipstick) Normal (Negative); Ketone, Urine Negative (Negative); Leukocyte 25 Leu/uL (Negative); Mucous/LPF 1+ LPF (<2+); Nitrite Negative (Negative); Protein, Urine (Dipstick) Negative (Neg-Trace); Specific Gravity, Urine 1.018 (1.002-1.036); Squamous Epithelial 0-3 HPF (0-3); Urobilinogen Normal mg/dL (Less than 2)
[2020-08-28 11:05] LABS: Amphetamine Not Detected (NotDetected); Barbiturates Screen Not Detected (NotDetected); Benzodiazepine Screen Not Detected (NotDetected); Cocaine Metabolite Screen Not Detected (NotDetected); Medtox Control Line Valid? VALID (VALID); Medtox Reader # READER 4; Methadone Not Detected (NotDetected); Methamphetamine Not Detected (NotDetected); Opiate Screen Not Detected (NotDetected); Oxycodone Screen Not Detected (NotDetected); Phencyclidine (PCP) Not Detected (NotDetected); THC/Cannabinoid Screen Not Detected (NotDetected); Tricyclic Screen Not Detected (NotDetected)
[2020-08-28 11:08] LABS: Mean Corpuscular HGB CONC 33.2 g/dL (32.0-36.0); Mean Corpuscular Hemoglobin 37.7 pg (27.0-31.0); Mean Platelet Volume 9.7 fL (7.4-10.4); Platelet Count 125 thou/uL (130-400); RBC Distribution Width 15.5 % (11.5-14.5); Red Blood Cell (RBC) Count 2.92 mill/uL (4.70-6.10); White Blood Cell (WBC) Count 8.2 thou/uL (4.8-10.8)
[2020-08-28 11:21] LABS: ALT (SGPT) 30 U/L (8-55); AST (SGOT) 36 U/L (5-34); Albumin 2.7 g/dL (3.4-4.8); Alkaline Phosphatase 224 U/L (40-110); Anion Gap 7 mmol/L (10-20); BUN (Urea Nitrogen) 8 mg/dL (8.4-25.7); Bilirubin, Total 2.2 mg/dL (0.2-1.2); Calc. Creatinine Clearance 0 mL/min (70-130); Calcium 8.1 mg/dL (7.8-10.44); Carbon Dioxide 20 mmol/L (23-31); Chloride 114 mmol/L (98-107); Estimated GFR-MDRD 85; Globulin 3.5 g/dL (2.4-3.5); Glucose 111 mg/dL (80-115); Potassium 3.8 mmol/L (3.5-5.1); Protein, Total 6.2 g/dL (5.8-8.1); Sodium 137 mmol/L (136-145)
[2020-08-28 11:22] LABS: Acetaminophen Less than 6.0 mcg/mL (10.0-30.0); Alcohol Less than 10 mg/dL (Less than 10); Salicylate Less than 8.0 mg/dL (15.0-30.0)
[2020-08-28 11:29] LABS: Anisocytosis SLIGHT = 6-15 cells (100X) (0-5/hpf); Band 1 % (5-11); Hypochromia SLIGHT = 6-15 cells (100X) (0-5/hpf); Large Platelets SLIGHT; Lymphocytes 40 % (21-51); MDiff Complete? YES; Monocytes 18 % (0-10); Neutrophil 38 % (42-75); Platelet Morphology Comment Appears Decreased; Reactive Lymphocytes 1 % (0-10); Target Cells SLIGHT = 2-5 cells (100X) (0-1/hpf)
--- NOTE | 2020-08-28 13:23 | CT ---
CT BRAIN: DATE: 08/28/2020. PROVIDED CLINICAL HISTORY: Altered mental status. FINDINGS: Comparison is made with the study dated 07/13/2020. The ventricular system appears normal in size and morphology. There is no evidence for intracranial hemorrhage or mass effect. The extracranial soft tissues and osseous structures demonstrate an unremarkable CT appearance. Chronic microvascular isch emic changes are redemonstrated, stable. IMPRESSION: No evidence for intracranial hemorrhage or mass effect. POS: MARGIE
== END 2020-08-28 15:25 ==
LOC: ERS 09:22
DX: R45.1 Restlessness and agitation (principal); I10 Essential (primary) hypertension; J44.9 Chronic obstructive pulmonary disease, unspecified; F31.9 Bipolar disorder, unspecified; F20.9 Schizophrenia, unspecified; Z87.891 Personal history of nicotine dependence; Z79.899 Other long term (current) drug therapy
CPT/HCPCS: 36415; 70450; 80053; 80306; 80307; 81003; 81015; 84443; 85025; 93005

== ENCOUNTER 2020-09-01 09:30 | Emergency (ER) | payer MEDICARE, OTHER ==
[2020-09-01 10:12] LABS: Hemoglobin 12.4 g/dL (14.0-18.0); Mean Corpuscular HGB CONC 31.5 g/dL (32.0-36.0); Mean Corpuscular Hemoglobin 36.4 pg (27.0-31.0); Mean Platelet Volume 9.1 fL (7.4-10.4); Platelet Count 140 thou/uL (130-400); RBC Distribution Width 15.2 % (11.5-14.5)
--- NOTE | 2020-09-01 10:25 | RAD ---
EXAM: Single view of the chest HISTORY: Weakness and altered mental status COMPARISON: 07/12/2020 FINDINGS: Single view of the chest shows a normal sized cardiomediastinal silhouette. Bilateral tavo r fullness likely represents normal pulmonary vasculature. There is no evidence of consolidation, mass, or pleural effusion. No acute osseous abnormality. IMPRESSION: No evidence of acute cardiopulmonary disease
[2020-09-01 10:32] LABS: ALT (SGPT) 31 U/L (8-55); AST (SGOT) 40 U/L (5-34); Alkaline Phosphatase 216 U/L (40-110); Anion Gap 12 mmol/L (10-20); BUN (Urea Nitrogen) 10 mg/dL (8.4-25.7); Bilirubin, Total 2.7 mg/dL (0.2-1.2); Calc. Creatinine Clearance 0 mL/min (70-130); Carbon Dioxide 20 mmol/L (23-31); Chloride 111 mmol/L (98-107); Estimated GFR-MDRD 64; Globulin 3.9 g/dL (2.4-3.5); Glucose 140 mg/dL (80-115); Lipase 51 U/L (8-78); Potassium 3.9 mmol/L (3.5-5.1); Protein, Total 6.9 g/dL (5.8-8.1); Sodium 139 mmol/L (136-145)
[2020-09-01 10:38] LABS: Acetaminophen Less than 6.0 mcg/mL (10.0-30.0); Alcohol 57 mg/dL (Less than 10); CK (CPK) 81 U/L (30-200); Salicylate Less than 8.0 mg/dL (15.0-30.0)
[2020-09-01] MEDS ORDERED: Bacitracin 1 PK ONE ×2 (10:45→17:39)
[2020-09-01 10:57] LABS: Lymphocytes 63 % (21-51); MDiff Complete? YES; Macrocytosis MODERATE=16-30 cells (100X) (0-5/hpf); Monocytes 11 % (0-10); Neutrophil 25 % (42-75); Platelet Morphology Comment Appears Adequate; Polychromasia SLIGHT = 2-3 cells (100X) (0-2/hpf); Reactive Lymphocytes 1 % (0-10)
[2020-09-01 11:55] LABS: Bacteria/HPF None Seen HPF (None Seen); Bilirubin Negative (Negative); Blood, Urine 1+ (Negative); Clarity Clear (Clear); Glucose, Urine (Dipstick) Normal (Negative); Ketone, Urine Negative (Negative); Leukocyte 25 Leu/uL (Negative); Nitrite Negative (Negative); Protein, Urine (Dipstick) Negative (Neg-Trace); Specific Gravity, Urine 1.012 (1.002-1.036); Squamous Epithelial None Seen HPF (0-3); Urobilinogen Normal mg/dL (Less than 2)
[2020-09-01 12:00] LABS: Amphetamine Not Detected (NotDetected); Barbiturates Screen Not Detected (NotDetected); Benzodiazepine Screen Not Detected (NotDetected); Cocaine Metabolite Screen Not Detected (NotDetected); Medtox Control Line Valid? VALID (VALID); Medtox Reader # READER 4; Methadone Not Detected (NotDetected); Methamphetamine Not Detected (NotDetected); Opiate Screen Not Detected (NotDetected); Oxycodone Screen Not Detected (NotDetected); Phencyclidine (PCP) Not Detected (NotDetected); THC/Cannabinoid Screen Not Detected (NotDetected); Tricyclic Screen Not Detected (NotDetected)
== END 2020-09-01 17:45 | disposition home or self-care (01) ==
LOC: ERS 09:30
DX: M62.81 Muscle weakness (generalized) (principal); F10.20 Alcohol dependence, uncomplicated; R60.0 Localized edema; I10 Essential (primary) hypertension; J44.9 Chronic obstructive pulmonary disease, unspecified; F31.9 Bipolar disorder, unspecified; F20.9 Schizophrenia, unspecified; Z87.891 Personal history of nicotine dependence; Y90.2 Blood alcohol level of 40-59 mg/100 ml; Z79.899 Other long term (current) drug therapy
CPT/HCPCS: 71045; 80053; 80306; 80307; 81003; 81015; 82140; 82550; 83690; 83880; 84484; 85025; 93005

== ENCOUNTER 2020-09-03 09:05 | Inpatient (IN) | payer MEDICARE, MEDICAID, OTHER ==
[2020-09-03] MEDS ORDERED: Ondansetron PF 4 MG/2 ML Vial ONE (09:29)
[2020-09-03] MEDS ORDERED: Lorazepam 2 MG/ML VIAL ONE (09:44)
--- NOTE | 2020-09-03 09:44 | CT ---
CT HEAD WITHOUT IV CONTRAST COMPARISON: 08/28/2020 HISTORY: Altered mental status. TECHNIQUE: Axial CT imaging at 5 mm intervals from vertex through skull base without contrast FINDINGS: Again noted is mild cerebral and cerebellar volume loss. There is no evidence of an acute infarction, hemorrhage, mass effect, or midline shift. The ventricular system is normal in size, shape, and position. Skull base has a normal CT appearance. Visualized paranasal sinuses are clear. Osseous structures appear intact. No interval change when compared to the prior study. IMPRESSION: 1. No acute intracranial abnormality demonstrated.
[2020-09-03 09:47] LABS: Bacteria/HPF None Seen HPF (None Seen); Bilirubin Negative (Negative); Blood, Urine Trace (Negative); Clarity Clear (Clear); Glucose, Urine (Dipstick) Normal (Negative); Ketone, Urine Negative (Negative); Leukocyte Negative Leu/uL (Negative); Nitrite Negative (Negative); Protein, Urine (Dipstick) Negative (Neg-Trace); RBC/HPF 0-3 HPF (0-3); Specific Gravity, Urine 1.003 (1.002-1.036); Squamous Epithelial None Seen HPF (0-3); Urobilinogen Normal mg/dL (Less than 2); WBC/HPF 0-3 HPF (0-3); pH, Urine 5.5 (5.0-9.0)
[2020-09-03 09:48] LABS: ALT (SGPT) 31 U/L (8-55); AST (SGOT) 44 U/L (5-34); Albumin 2.9 g/dL (3.4-4.8); Alkaline Phosphatase 260 U/L (40-110); Anion Gap 12 mmol/L (10-20); BUN (Urea Nitrogen) 10 mg/dL (8.4-25.7); Bilirubin, Total 2.5 mg/dL (0.2-1.2); Calc. Creatinine Clearance 0 mL/min (70-130); Calcium 8.9 mg/dL (7.8-10.44); Carbon Dioxide 17 mmol/L (23-31); Chloride 112 mmol/L (98-107); Estimated GFR-MDRD 83; Globulin 3.9 g/dL (2.4-3.5); Glucose 102 mg/dL (80-115); Potassium 4.4 mmol/L (3.5-5.1); Protein, Total 6.8 g/dL (5.8-8.1); Sodium 137 mmol/L (136-145)
[2020-09-03 09:51] LABS: Anisocytosis SLIGHT = 6-15 cells (100X) (0-5/hpf); Band 5 % (5-11); Hemoglobin 11.8 g/dL (14.0-18.0); Lymphocytes 68 % (21-51); MDiff Complete? YES; Macrocytosis MODERATE=16-30 cells (100X) (0-5/hpf); Mean Corpuscular HGB CONC 33.1 g/dL (32.0-36.0); Mean Corpuscular Hemoglobin 37.2 pg (27.0-31.0); Monocytes 6 % (0-10); Neutrophil 20 % (42-75); Platelet Count 128 thou/uL (130-400); RBC Distribution Width 15.4 % (11.5-14.5); Red Blood Cell (RBC) Count 3.18 mill/uL (4.70-6.10)
--- NOTE | 2020-09-03 09:55 | RAD ---
XR Chest 1 View Portable History: Altered mental status Comparison: Radiograph 2 days prior Findings: Pulmonary arteries are dilated. Mild portal venous congestion. Small effusions. No pneumoth orax. Impression: Cardiomegaly, small effusions and mild pulmonary venous congestion.
[2020-09-03 09:57] LABS: Amphetamine Not Detected (NotDetected); Barbiturates Screen Not Detected (NotDetected); Benzodiazepine Screen Not Detected (NotDetected); Cocaine Metabolite Screen Not Detected (NotDetected); Medtox Control Line Valid? VALID (VALID); Medtox Reader # READER 4; Methadone Not Detected (NotDetected); Methamphetamine Not Detected (NotDetected); Opiate Screen Not Detected (NotDetected); Oxycodone Screen Not Detected (NotDetected); Phencyclidine (PCP) Not Detected (NotDetected); THC/Cannabinoid Screen Not Detected (NotDetected); Tricyclic Screen Not Detected (NotDetected)
[2020-09-03] MEDS ORDERED: Multivitamins, Adult 10 ML, Thiamine HCl 100 MG, Folic Acid 1 MG in Dextrose 5 %-0.45 %... IV SCH (10:00)
[2020-09-03 10:03] LABS: Acetaminophen Less than 6.0 mcg/mL (10.0-30.0); Alcohol 104 mg/dL (Less than 10); CK (CPK) 79 U/L (30-200); Salicylate Less than 8.0 mg/dL (15.0-30.0)
[2020-09-03] MEDS ORDERED: Ketamine 50 MG/ML (10ML VIAL) ONE (12:50)
[2020-09-03] MEDS ORDERED: Senokot S 8.6-50 MG TAB PO PRN (14:01)
--- NOTE | 2020-09-03 15:16 | PDOC.HHP ---
Hospitalist HPI - History of Present Illness AMS History of Present Illness: 65M presents to the ED today for evaluation of AMS and fall. Was seen and evaluated for similar complaints on 09/01 and was discharged home. EMS was called today when he was found down at home. Per the ED records, patient was able to call 911 and the ED record indicates he was given ketamine on route as he was agitated prior to arrival. His alcohol level in the ED was 104. AST 44, ALT 31, Alk Phos 260, Bili- 2.5. WBC 12.0, Hgb 11.8, Hct 35.8, Platelets 128. CT head- unremarkable. CXR- no acute findings. Per the ED staff, he is agitated and tries to get out of bed but will stay in bed after redirection. Patient reports he drank 4 beers today. He knows his name and his BD but thought he was at home. He will settle when reminded of where he is and why we need to him to stay in the bed. He was admitted to this hospital in July for AMS, at that time it was due to a high ammonia level and he was restarted on Lactulose and rifaxmin and his mentation improved. Today his ammonia was 48. He has a history of cirrhosis, Hep C, COPD, alcohol abuse, bipolar, schizophrenia and hypertension. Currently, he reports a little bit of a headache but denies any other complaints. He is A&O x2. He will be admitted overnight for observation. Hospitalist ROS - Review of Systems ROS unobtainable: due to mental status - Medication Medications: rifAXIMin (bulk) SatJul 12, 2020 17:04 powder : Strength - 100 % : MISCELLANEOUS Patient Dose: 550 mg Oral once a day. furosemide oral SatJul 12, 2020 17:05 tablet : Strength - 40 mg : ORAL Patient Dose: 40 mg Oral once a day. Protonix oral SatJul 12, 2020 17:05 tablet,delayed release (DR/EC) : Strength - 20 mg : ORAL Patient Dose: 20 mg Oral once a day. spironolactone SatJul 12, 2020 17:06 tablet : Strength - 100 mg : ORAL Patient Dose: 100 mg Oral once a day. propranolol oral SatJul 12, 2020 17:07 tablet : Strength - 10 mg : ORAL Patient Dose: 10 mg Oral once a day. lactulose SatJul 12, 2020 17:07 solution : Strength - 20 gram/30 mL : ORAL Patient Dose: 20 g Oral every 8 hours. Hospitalist History - Past Medical History Source: old records Cardiac: reports: HTN Pulmonary: reports: COPD Hepatobiliary: reports: Cirrhosis, Hep A/B/C, Other (Esophageal varices, hepatomegaly,) Psych: reports: Bipolar, Schizophrenia - Past Surgical History Other Surgical History: Hx of eye surgery, hx of internal bleeding, head surgery due to trauma (per old records) - Exam Eye: scleral icterus ENT: moist mucosa Neck: supple, no JVD Heart: RRR, normal peripheral pulses Respiratory: CTAB Gastrointestinal: normal bowel sounds, distended Extremities: 1+ LE edema Neurological: normal sensation to touch Musculoskeletal: normal strength Psychiatric: oriented to person Hospitalist Results - Labs Result Diagrams: 09/04/20 04:54 09/04/20 04:54 Lab results: WBC 12.0 thou/uL (4.8-10.8) H 09/03/20 09:10 Hgb 11.8 g/dL (14.0-18.0) L 09/03/20 09:10 Hct 35.8 % (42.0-52.0) L 09/03/20 09:10 MCV 113.0 fL (78.0-98.0) H 09/03/20 09:10 Plt Count 128 thou/uL (130-400) L 09/03/20 09:10 Band Neuts % (Manual) 5 % (5-11) 09/03/20 09:10 Sodium 137 mmol/L (136-145) 09/03/20 09:10 Potassium 4.4 mmol/L (3.5-5.1) 09/03/20 09:10 Chloride 112 mmol/L (98-107) H 09/03/20 09:10 Carbon Dioxide 17 mmol/L (23-31) L 09/03/20 09:10 BUN 10 mg/dL (8.4-25.7) 09/03/20 09:10 Creatinine 0.92 mg/dL (0.7-1.3) 09/03/20 09:10 Glucose 102 mg/dL (80-115) 09/03/20 09:10 Calcium 8.9 mg/dL (7.8-10.44) 09/03/20 09:10 Total Bilirubin 2.5 mg/dL (0.2-1.2) H 09/03/20 09:10 AST 44 U/L (5-34) H 09/03/20 09:10 ALT 31 U/L (8-55) 09/03/20 09:10 Alkaline Phosphatase 260 U/L (40-110) H 09/03/20 09:10 Ammonia 48 umol/L (18-72) 09/03/20 09:48 Creatine Kinase 79 U/L (30-200) 09/03/20 09:10 Troponin I Less than 0.010 ng/mL (< 0.028) 09/03/20 09:10 Serum Total Protein 6.8 g/dL (5.8-8.1) 09/03/20 09:10 Albumin 2.9 g/dL (3.4-4.8) L 09/03/20 09:10 Lipase 37 U/L (8-78) 09/03/20 09:10 Urine Ketones Negative mg/dL (Negative) 09/03/20 09:26 Urine Blood Trace (Negative) A 09/03/20 09:26 Urine Nitrite Negative (Negative) 09/03/20 09:26 Ur Leukocyte Esterase Negative Nisha/uL (Negative) 09/03/20 09:26 Urine RBC 0-3 HPF (0-3) 09/03/20 09:26 Urine WBC 0-3 HPF (0-3) 09/03/20 09:26 Ur Squamous Epith Cells None Seen HPF (0-3) 09/03/20 09:26 Urine Bacteria None Seen HPF (None Seen) 09/03/20 09:26 Hospitalist H&P A/P - Problem (1) AMS (altered mental status) Code(s): R41.82 - ALTERED MENTAL STATUS, UNSPECIFIED Status: Acute (2) Acute metabolic encephalopathy Code(s): G93.41 - METABOLIC ENCEPHALOPATHY Status: Acute (3) Frequent falls Code(s): R29.6 - REPEATED FALLS Status: Acute (4) Hepatorenal syndrome Code(s): K76.7 - HEPATORENAL SYNDROME Status: Chronic (5) Bipolar affective disorder Code(s): F31.9 - BIPOLAR DISORDER, UNSPECIFIED Status: Chronic (6) COPD (chronic obstructive pulmonary disease) Status: Chronic Qualifiers: COPD type: chronic bronchitis Chronic bronchitis type: unspecified Qualified Code(s): J42 - Unspecified chronic bronchitis (7) Cirrhosis of liver Code(s): K74.60 - UNSPECIFIED CIRRHOSIS OF LIVER Status: Chronic (8) ETOH abuse Code(s): F10.10 - ALCOHOL ABUSE, UNCOMPLICATED Status: Acute (9) HTN (hypertension) Code(s): I10 - ESSENTIAL (PRIMARY) HYPERTENSION Status: Chronic Qualifiers: Hypertension type: essential hypertension Qualified Code(s): I10 - Essential (primary) hypertension - Plan Plan: We will admit to the Stroke Unit Neuro checks q4 hours IVF NS 75ml/hr, banana bag qday at 75/hr Lasix 40mg IVP daily; dose on admission Will restart his home meds, including lactulose and rifampin Will recheck labs in AM (have added alcohol and ammonia levels) Patient will need a sitter at the bedside I've attempted to call the sister, who is listed in previous records as next of kin (and patient mentioned a sister). I was not able to get a hold of her for code status and to update her on admission. Last # in our records [phone] (Reba Cosby).
[2020-09-03] MEDS ORDERED: Furosemide 40 MG/4 ML VIAL SLOW IVP SCH (17:00)
[2020-09-03] MEDS ORDERED: Furosemide 40 MG/4 ML VIAL ONE (17:08)
[2020-09-03] MEDS: Sodium Chloride 0.9% 1,000 ML IV SCH ×2 (20:13→22:59)
[2020-09-03] MEDS ORDERED: chlordiazePOXIDE HCl 25 MG CAP PO SCH (21:00)
[2020-09-03] MEDS: Rifaximin 550 MG TAB PO SCH (23:00)
[2020-09-04 02:18] VITALS: BMI 27.7
[2020-09-04 05:47] LABS: ALT (SGPT) 27 U/L (8-55); AST (SGOT) 42 U/L (5-34); Albumin 2.4 g/dL (3.4-4.8); Alcohol Less than 10 mg/dL (Less than 10); Alkaline Phosphatase 193 U/L (40-110); Anion Gap 11 mmol/L (10-20); BUN (Urea Nitrogen) 11 mg/dL (8.4-25.7); Bilirubin, Total 2.5 mg/dL (0.2-1.2); Calc. Creatinine Clearance 96 mL/min (70-130); Calcium 8.5 mg/dL (7.8-10.44); Carbon Dioxide 21 mmol/L (23-31); Chloride 112 mmol/L (98-107); Estimated GFR-MDRD 82; Globulin 3.2 g/dL (2.4-3.5); Glucose 99 mg/dL (80-115); Potassium 3.9 mmol/L (3.5-5.1); Protein, Total 5.6 g/dL (5.8-8.1); Sodium 140 mmol/L (136-145)
[2020-09-04 07:13] LABS: Band 11 % (5-11); Eosinophils 1 % (0-10); Hemoglobin 10.3 g/dL (14.0-18.0); Lymphocytes 39 % (21-51); MDiff Complete? YES; Mean Corpuscular Hemoglobin 36.4 pg (27.0-31.0); Mean Platelet Volume 10.5 fL (7.4-10.4); Monocytes 7 % (0-10); Neutrophil 42 % (42-75); Platelet Count 126 thou/uL (130-400); RBC Distribution Width 15.3 % (11.5-14.5); Red Blood Cell (RBC) Count 2.82 mill/uL (4.70-6.10); White Blood Cell (WBC) Count 8.6 thou/uL (4.8-10.8)
[2020-09-04] MEDS: Rifaximin 550 MG TAB PO SCH ×2 (08:30→21:39)
[2020-09-04] MEDS: Propranolol 10 MG TAB PO SCH (08:30)
[2020-09-04] MEDS: Furosemide 40 MG/4 ML VIAL SLOW IVP SCH (08:34)
[2020-09-04] MEDS: Pantoprazole 40 MG VIAL IVP SCH (08:35)
[2020-09-04] MEDS: Multivitamins, Adult 10 ML, Folic Acid 1 MG, Thiamine HCl 100 MG in Dextrose 5 %-0.45 %... IV SCH (10:12)
[2020-09-04] MEDS: Sodium Chloride 0.9% 1,000 ML IV SCH (10:53)
--- NOTE | 2020-09-04 10:55 | PDOC.HOSPP ---
- Subjective Encounter Date: 09/04/20 Encounter Time: 08:15 Subjective: Patient evaluated today for follow up on AMS, frequent falls, ETOH intoxication with history of cirrhosis alcohol abuse and Hep C. Was at [facility] until recently, and is now staying with his landlord. Reports drinking 4 beers prior to arrival yesterday. Today, he is more awake, is alert and oriented x2. Is asking for breakfast and would like to go home. Home meds were restarted. - Objective Vital Signs & Weight: Vital Signs (12 hours) Temp Pulse Resp BP BP Pulse Ox 09/04/20 07:52 98.3 F 90 18 159/84 H 96 09/04/20 04:00 97.8 F 89 16 124/62 96 Weight Weight 85.275 kg I&O: 09/03/20 09/04/20 09/05/20 06:59 06:59 06:59 Intake Total 360 Output Total 650 Balance -290 Result Diagrams: 09/04/20 04:54 09/04/20 04:54 Hospitalist ROS - Review of Systems Constitutional: denies: fever, chills, sweats, weakness, malaise, other Eyes: denies: pain, vision change, conjunctivae inflammation, eyelid inflammation, redness, other ENT: denies: ear pain, ear discharge, nose pain, nose discharge, nose conges tion, mouth pain, mouth swelling, throat pain, throat swelling, other Respiratory: denies: cough, dry, shortness of breath, hemoptysis, SOB with excertion, pleuritic pain, sputum, wheezing, other Cardiovascular: denies: chest pain, palpitations, orthopnea, paroxysmal noc. dyspnea, edema, light headedness, other Gastrointestinal: denies: nausea, vomiting, abdominal pain, diarrhea, constipation, melena, hematochezia, other Genitourinary: denies: dysuria, frequency, incontinence, hematuria, retention, other Musculoskeletal: denies: neck pain, shoulder pain, arm pain, back pain, hand pain, leg pain, foot pain, other Neurological: reports: confusion - Medication Medications: Active Medications Generic Name Dose Route Start Last Admin Trade Name Freq PRN Reason Stop Dose Admin Furosemide 40 mg 09/04/20 09:00 09/04/20 08:34 Furosemide 40 Mg/4 Ml Vial SLOW IVP 40 mg DAILY MAURICIO Administration Sodium Chloride 1,000 mls @ 75 mls/hr 09/03/20 14:15 09/03/20 22:59 Normal Saline 0.9% IV 1,000 mls .[id number] MAURICIO Administration Multivitamins 10 ml/ Folic 1,011.2 mls @ 75 mls/hr 09/04/20 10:00 09/04/20 10:12 Acid 1 mg/ Thiamine HCl 100 mg IV 1,011.2 mls / Dextrose/Sodium Chloride Q24HR MAURICIO Administration Lactulose 20 gm 09/03/20 15:00 09/04/20 08:31 Lactulose 20 Gm/30 Ml Udcup PO 20 gm TID MAURICIO Administration Pantoprazole Sodium 40 mg 09/04/20 09:00 09/04/20 08:35 Pantoprazole 40 Mg Vial IVP 40 mg DAILY MAURICIO Administration Propranolol HCl 10 mg 09/04/20 09:00 09/04/20 08:30 Propranolol 10 Mg Tab PO 10 mg DAILY MAURICIO Administration Rifaximin 550 mg 09/03/20 21:00 09/04/20 08:30 Rifaximin 550 Mg Tab PO 550 mg BID MAURICIO Administration - Exam General Appearance: awake alert Eye: scleral icterus ENT: moist mucosa Neck: supple, no JVD Heart: RRR, normal peripheral pulses Respiratory: CTAB, normal chest expansion Gastrointestinal: non-tender, distended Extremities: no edema Skin: normal turgor Skin - other findings: Jaundiced skin Neurological - other findings: A&O to person and time Musculoskeletal: generalized weakness Psychiatric: oriented to person, oriented to time, flat affect Hosp A/P (1) AMS (altered mental status) Code(s): R41.82 - ALTERED MENTAL STATUS, UNSPECIFIED Status: Acute (2) Acute metabolic encephalopathy Code(s): G93.41 - METABOLIC ENCEPHALOPATHY Status: Acute (3) Frequent falls Code(s): R29.6 - REPEATED FALLS Status: Acute (4) Hepatorenal syndrome Code(s): K76.7 - HEPATORENAL SYNDROME Status: Chronic (5) Bipolar affective disorder Code(s): F31.9 - BIPOLAR DISORDER, UNSPECIFIED Status: Chronic (6) COPD (chronic obstructive pulmonary disease) Status: Chronic Qualifiers: COPD type: chronic bronchitis Chronic bronchitis type: unspecified Qualified Code(s): J42 - Unspecified chronic bronchitis (7) Cirrhosis of liver Code(s): K74.60 - UNSPECIFIED CIRRHOSIS OF LIVER Status: Chronic (8) ETOH abuse Code(s): F10.10 - ALCOHOL ABUSE, UNCOMPLICATED Status: Acute (9) HTN (hypertension) Code(s): I10 - ESSENTIAL (PRIMARY) HYPERTENSION Status: Chronic Qualifiers: Hypertension type: essential hypertension Qualified Code(s): I10 - Essential (primary) hypertension - Plan old records reviewed/req, PT/OT Dr. Alvarado saw patient later in the AM. Patient had fallen after earlier visit and was hallucinating. Will continue to observe patient another night. Will consult Case Management about placement options. Will add PT/OT consults. Continue home medications Will recheck labs in the AM. Plan discussed with Dr. Alvarado.
[2020-09-04 11:42] LABS: SARS-CoV-2 MS2 Positive; SARS-CoV-2 N Gene Negative; SARS-CoV-2 S Gene Negative; SARS-CoV-2 by NAA Not Detected (NotDetected); SARS-CoV-2 orf1ab Negative
[2020-09-05 04:26] LABS: ALT (SGPT) 22 U/L (8-55); AST (SGOT) 37 U/L (5-34); Albumin 2.4 g/dL (3.4-4.8); Alkaline Phosphatase 180 U/L (40-110); Anion Gap 9 mmol/L (10-20); BUN (Urea Nitrogen) 12 mg/dL (8.4-25.7); Bilirubin, Total 2.2 mg/dL (0.2-1.2); Calc. Creatinine Clearance 92 mL/min (70-130); Calcium 8.3 mg/dL (7.8-10.44); Carbon Dioxide 24 mmol/L (23-31); Chloride 111 mmol/L (98-107); Estimated GFR-MDRD 78; Globulin 3.1 g/dL (2.4-3.5); Glucose 122 mg/dL (80-115); Potassium 3.9 mmol/L (3.5-5.1); Protein, Total 5.5 g/dL (5.8-8.1); Sodium 140 mmol/L (136-145)
[2020-09-05] MEDS: Rifaximin 550 MG TAB PO SCH ×2 (08:25→21:35)
[2020-09-05] MEDS: Propranolol 10 MG TAB PO SCH (08:25)
[2020-09-05] MEDS: Furosemide 40 MG/4 ML VIAL SLOW IVP SCH (08:25)
[2020-09-05] MEDS: Pantoprazole 40 MG VIAL IVP SCH (08:26)
--- NOTE | 2020-09-05 09:35 | PDOC.HOSPP ---
- Subjective Encounter Date: 09/05/20 Encounter Time: 09:33 Subjective: Overnight nursing staff reports patient has been acutely agitated. Sitter reports that patient has been very unsteady on his feet. Patient currently denies any complaints. Is alert to self, place, but confused. Patient reports that he lives by himself and has no family members that would be able to help him, also reports that he is out of all of his medications. Patient continues to be confused and is unable to tell me why he is in the hospital. Chart and medications reviewed. - Objective Vital Signs & Weight: Vital Signs (12 hours) Temp Pulse Resp BP Pulse Ox 09/05/20 07:58 98.2 F 59 L 16 138/69 95 09/05/20 03:14 98.2 F 77 20 116/61 94 L 09/04/20 23:14 98.2 F 71 20 128/72 97 Weight Weight 188 lb I&O: 09/04/20 09/05/20 09/06/20 06:59 06:59 06:59 Intake Total 360 1370 Output Total 650 1150 Balance -290 220 Result Diagrams: 09/04/20 04:54 09/05/20 03:56 Hospitalist ROS - Review of Systems Constitutional: denies: fever, chills Eyes: denies: vision change Respiratory: denies: cough, shortness of breath Cardiovascular: denies: chest pain Gastrointestinal: reports: diarrhea. denies: nausea, vomiting, abdominal pain Genitourinary: denies: dysuria Neurological: denies: weakness - Medication Medications: Active Medications Generic Name Dose Route Start Last Admin Trade Name Tano PRN Reason Stop Dose Admin Furosemide 40 mg 09/04/20 09:00 09/05/20 08:25 Furosemide 40 Mg/4 Ml Vial SLOW IVP 40 mg DAILY MAURICIO Administration Multivitamins 10 ml/ Folic 1,011.2 mls @ 75 mls/hr 09/04/20 10:00 09/04/20 10:12 Acid 1 mg/ Thiamine HCl 100 mg IV 1,011.2 mls / Dextrose/Sodium Chloride Q24HR MAURICIO Administration Lactulose 20 gm 09/03/20 15:00 09/05/20 08:25 Lactulose 20 Gm/30 Ml Udcup PO 20 gm TID MAURICIO Administration Pantoprazole Sodium 40 mg 09/04/20 09:00 09/05/20 08:26 Pantoprazole 40 Mg Vial IVP 40 mg DAILY MAURICIO Administration Propranolol HCl 10 mg 09/04/20 09:00 09/05/20 08:25 Propranolol 10 Mg Tab PO 10 mg DAILY MAURICIO Administration Rifaximin 550 mg 09/03/20 21:00 09/05/20 08:25 Rifaximin 550 Mg Tab PO 550 mg BID MAURICIO Administration - Exam General Appearance: NAD Eye: anicteric sclera ENT: normocephalic atraumatic, moist mucosa Neck: supple, symmetric, no JVD Heart: RRR, no murmur, no gallops, no rubs, normal peripheral pulses Respiratory: CTAB, no wheezes, no rales, no ronchi, normal chest expansion, no tachypnea, normal percussion Gastrointestinal: soft, non-tender, non-distended, normal bowel sounds, no palpable masses, no hepatomegaly, no splenomegaly, no bruit Extremities: no cyanosis, no clubbing, no edema Skin: normal turgor, no lesions, no rashes Neurological: normal sensation to touch, no focal deficits Musculoskeletal: normal tone, normal strength, no muscle wasting Psychiatric: not oriented Hosp A/P - Plan 65-year-old male with history of COPD, cirrhosis, hypertension, hepatitis C, esophageal varices, bipolar disorder, schizophrenia who was found down after a fall with altered mental status. AMS Patient presented with altered mental status, ANO x2. Initial head CT negative. Alcohol level elevated, and ammonia level 48 on admission. WBC 12.0 on admission now down to 8.6. BUN/CR 12/0.97. Altered mental status likely secondary to hepatic encephalopathy versus EtOH withdrawal. Patient acutely agitated at times requiring one-to-one observation. Nursing staff also reports unsteady gait. No focal deficits, cranial nerves intact, equal strength bilaterally. Will obtain MRI. Plan Continue one-to-one observation ASE protocol with Ativan MRI, q4 neurochecks Vitamin B12, thiamine Falls Pt with multiple falls. Fall prior to admission and a second fall during admission. Likely 2/2 AMS. Question however if this is patient's new baseline. Concern if patient is safe to return to home since he lives alone. Will consult CM to explore available options. Plan: -PT/OT eval -CM consult -Fall precautions -AMS treatment as above EtOH abuse History of EtOH abuse, patient reports last drink day of admission. Alcohol level elevated on admission. Will place patient on ASE protocol with Ativan. Plan Magnesium, vitamin B-12, thiamine ASE protocol with Ativan Cirrhosis with hepatic encephalopathy History of cirrhosis with hepatic encephalopathy. Patient on lactulose, propanolol, Lasix, rifaximin. Ammonia level on admission 48, mildly increasing to 79. We will continue home medications. Patient continues with AMS. Reports multiple loose stools approximately 7 times per day when taking lactulose. AST/ALT 42/27. Na 140. BUN/Cr 12/0.97. WBC 8.6. Patient afebrile. Plan -PT/INR, CMP Continue home lactulose Continue propanolol, Lasix, rifaximin COPD History of COPD not on home oxygen. Patient's respiratory status stable, 97% on room air. Plan Continue to monitor Schizophrenia History of schizophrenia and bipolar disorder. Patient not currently on any medications for these. Will need outpatient follow-up upon discharge. DVT prophylaxis: Lovenox Case discussed with attending physician, Dr. Alvarado.
[2020-09-05] MEDS ORDERED: Lorazepam 1 MG TAB PO PRN ×2 (09:37→10:05)
[2020-09-05 10:47] LABS: INR-International Normal Ratio 1.3
[2020-09-05 10:48] LABS: PTT 36.5 sec (22.9-36.1)
[2020-09-05] MEDS: Multivitamins, Adult 10 ML, Folic Acid 1 MG, Thiamine HCl 100 MG in Dextrose 5 %-0.45 %... IV SCH (11:22)
[2020-09-05 11:32] LABS: Prothrombin Time 16.8 sec (12.0-14.7)
--- NOTE | 2020-09-05 12:34 | CON ---
NEUROLOGY CONSULTATION DATE OF CONSULTATION: 09/05/2020 REASON FOR CONSULTATION: Altered mental status. HISTORY OF PRESENT ILLNESS: Mr. Cosby is a 65-year-old male with history significant for hypertension; COPD; cirrhosis; hepatitis A, B, C; esophageal viruses; hepatomegaly; alcohol abuse; bipolar disorder; and schizophrenia, presented with altered mental status and a fall. He was found down at home by EMS. The patient was able to call 911 and the ED records located that he was given ketamine prior to arrival because of increased agitation. His alcohol level in the emergency room was 104. The patient did report that he drank 4 beers yesterday and is oriented to his name, but thought that place is his home. He was admitted to the hospital for further evaluation. In the emergency room, it was found that he has high ammonia level and the lactulose was started and also rifaximin and his mental status is somewhat improved. Neurology was consulted to rule out any intracranial process. Review of Systems Constitutional: denies: fever, chills Eyes: denies: vision change Respiratory: denies: cough, shortness of breath Cardiovascular: denies: chest pain Gastrointestinal: reports: diarrhea. denies: nausea, vomiting, abdominal pain Genitourinary: denies: dysuria Neurological: denies: weakness PAST MEDICAL HISTORY: 1. Hypertension. 2. COPD. 3. Cirrhosis. 4. Hepatitis A, B, C. 5. Esophageal varices. 6. Hepatomegaly. 7. Bipolar disorder. 8. Schizophrenia. PAST SURGICAL HISTORY: History of bleeding eye surgery due to trauma. ALLERGIES: NKDA SOCIAL History: History of alcohol abuse Family history: No significant family history Vital Signs & Weight: Vital Signs (12 hours) Temp Pulse Resp BP Pulse Ox 09/05/20 07:58 98.2 F 59 L 16 138/69 95 09/05/20 03:14 98.2 F 77 20 116/61 94 L 09/04/20 23:14 98.2 F 71 20 128/72 97 Weight Weight 188 lb I&O: 09/04/20 09/05/20 09/06/20 06:59 06:59 06:59 Intake Total 360 1370 Output Total 650 1150 Balance -290 220 Active Medications Generic Name Dose Route Start Last Admin Trade Name Freq PRN Reason Stop Dose Admin Furosemide 40 mg 09/04/20 09:00 09/05/20 08:25 Furosemide 40 Mg/4 Ml Vial SLOW IVP 40 mg DAILY MAURICIO Administration Multivitamins 10 ml/ Folic 1,011.2 mls @ 75 mls/hr 09/04/20 10:00 09/04/20 10:12 Acid 1 mg/ Thiamine HCl 100 mg IV 1,011.2 mls / Dextrose/Sodium Chloride Q24HR MAURICIO Administration Lactulose 20 gm 09/03/20 15:00 09/05/20 08:25 Lactulose 20 Gm/30 Ml Udcup PO 20 gm TID MAURICIO Administration Pantoprazole Sodium 40 mg 09/04/20 09:00 09/05/20 08:26 Pantoprazole 40 Mg Vial IVP 40 mg DAILY MAURICIO Administration Propranolol HCl 10 mg 09/04/20 09:00 09/05/20 08:25 Propranolol 10 Mg Tab PO 10 mg DAILY MAURICIO Administration Rifaximin 550 mg 09/03/20 21:00 09/05/20 08:25 Rifaximin 550 Mg Tab PO 550 mg BID MAURICIO Administration PHYSICAL EXAMINATION: General Appearance: NAD Eye: anicteric sclera ENT: normocephalic atraumatic, moist mucosa Neck: supple, symmetric, no JVD Heart: RRR, no murmur, no gallops, no rubs, normal peripheral pulses Respiratory: CTAB, no wheezes, no rales, no ronchi, normal chest expansion, no tachypnea, normal percussion Gastrointestinal: soft, non-tender, non-distended, normal bowel sounds, no palpable masses, no hepatomegaly, no splenomegaly, no bruit Extremities: no cyanosis, no clubbing, no edema Skin: normal turgor, no lesions, no rashes Neurological: Mental status; the patient is alert and oriented to person and place. He is not oriented to month or year. He follows commands intermittently. Cranial nerves 2 through 12 intact. Motor; muscle tone is normal, bulk is decreased, moving all 4 extremities equally and symmetrically. Sensory; withdraws to nailbed pressure bilaterally. Cerebellar; did not cooperate with the testing. Gait; deferred due to the patient's safety reason. DATA REVIEWED: The labs were reviewed, which were significant for anemia. I reviewed the head CT, which did not reveal any acute intracranial pathology. Lab results: WBC 12.0 thou/uL (4.8-10.8) H 09/03/20 09:10 Hgb 11.8 g/dL (14.0-18.0) L 09/03/20 09:10 Hct 35.8 % (42.0-52.0) L 09/03/20 09:10 MCV 113.0 fL (78.0-98.0) H 09/03/20 09:10 Plt Count 128 thou/uL (130-400) L 09/03/20 09:10 Band Neuts % (Manual) 5 % (5-11) 09/03/20 09:10 Sodium 137 mmol/L (136-145) 09/03/20 09:10 Potassium 4.4 mmol/L (3.5-5.1) 09/03/20 09:10 Chloride 112 mmol/L (98-107) H 09/03/20 09:10 Carbon Dioxide 17 mmol/L (23-31) L 09/03/20 09:10 BUN 10 mg/dL (8.4-25.7) 09/03/20 09:10 Creatinine 0.92 mg/dL (0.7-1.3) 09/03/20 09:10 Glucose 102 mg/dL (80-115) 09/03/20 09:10 Calcium 8.9 mg/dL (7.8-10.44) 09/03/20 09:10 Total Bilirubin 2.5 mg/dL (0.2-1.2) H 09/03/20 09:10 AST 44 U/L (5-34) H 09/03/20 09:10 ALT 31 U/L (8-55) 09/03/20 09:10 Alkaline Phosphatase 260 U/L (40-110) H 09/03/20 09:10 Ammonia 48 umol/L (18-72) 09/03/20 09:48 Creatine Kinase 79 U/L (30-200) 09/03/20 09:10 Troponin I Less than 0.010 ng/mL (< 0.028) 09/03/20 09:10 Serum Total Protein 6.8 g/dL (5.8-8.1) 09/03/20 09:10 Albumin 2.9 g/dL (3.4-4.8) L 09/03/20 09:10 Lipase 37 U/L (8-78) 09/03/20 09:10 Urine Ketones Negative mg/dL (Negative) 09/03/20 09:26 Urine Blood Trace (Negative) A 09/03/20:26 Urine Nitrite Negative (Negative) 09/03/20 09:26 Ur Leukocyte Esterase Negative Nisha/uL (Negative) 09/03/20 09:26 Urine RBC 0-3 HPF (0-3) 09/03/20 09:26 Urine WBC 0-3 HPF (0-3) 09/03/20: Ur Squamous Epith Cells None Seen HPF (0-3) 09/03/20: Urine Bacteria None Seen HPF (None Seen) 09/03/20 09:26 ASSESSMENT AND PLAN: (1) AMS (altered mental status) Code(s): R41.82 - ALTERED MENTAL STATUS, UNSPECIFIED Status: Acute (2) Acute metabolic encephalopathy Code(s): G93.41 - METABOLIC ENCEPHALOPATHY Status: Acute (3) Frequent falls Code(s): R29.6 - REPEATED FALLS Status: Acute (4) Hepatorenal syndrome Code(s): K76.7 - HEPATORENAL SYNDROME Status: Chronic (5) Bipolar affective disorder Code(s): F31.9 - BIPOLAR DISORDER, UNSPECIFIED Status: Chronic (6) COPD (chronic obstructive pulmonary disease) Status: Chronic Qualifiers: COPD type: chronic bronchitis Chronic bronchitis type: unspecified Qualified Code(s): J42 - Unspecified chronic bronchitis (7) Cirrhosis of liver Code(s): K74.60 - UNSPECIFIED CIRRHOSIS OF LIVER Status: Chronic (8) ETOH abuse Code(s): F10.10 - ALCOHOL ABUSE, UNCOMPLICATED Status: Acute (9) HTN (hypertension) Code(s): I10 - ESSENTIAL (PRIMARY) HYPERTENSION Status: Chronic Qualifiers: Hypertension type: essential hypertension Qualified Code(s): I10 - Essential (primary) hypertension Mr. Cosby is consulted for altered mental status. Altered mental status seems to be multifactorial secondary to history of alcohol abuse, hyperammonemia, and metabolic causes; however intracranial process could not be completely ruled out since history of multiple falls. Consider MRI of the brain to rule out acute intracranial process. EEG to rule out cortical irritability. Neuro checks every 4 hours. Continue home medications. [facility] protocol. Patient counseled about alcohol abuse. PT/OT/speech. Continue medical management per primary team. Further recommendations depend on the results of the testing. We will continue to follow. Thank you for the consult. Job ID: [id number]
--- NOTE | 2020-09-05 15:50 | MRI ---
MRI BRAIN WITHOUT CONTRAST: HISTORY: Altered mental status, multiple falls CORRELATION: CT scan from 09/03/2020. FINDINGS: No restricted diffusion is seen. There are multiple foci of T2 prolongation in the periventricular wh ite matter, consistent with chronic small vessel ischemic disease. The ventricular size is appropriate and the basilar cisterns are patent. There are changes of cortical atrophy. No evidence of acute infarct, hemorrhage, midline shift or abnormal extra-axial fluid collections is seen. There is a small focal blooming artifact in the posterior superior right parietal lobe consistent with old hemorrhage. There is a small area of gliosis in the left parietal lobe. There is mucosal disease in the paranasal sinuses. There is a small amount of fluid in the left masto id air cells. IMPRESSION: No evidence of acute intracranial process.
--- NOTE | 2020-09-05 15:53 | PDOC.EEG ---
Neurology EEG Report - Report Report: This EEG was performed using 24 channel Xtract video digital EEG machine with 24 disc electrodes. This was an extended 2 hours 4 minutes of inpatient video EEG recording. Digital analysis of the EEG was done for Jonny and seizure detection which revealed no abnormalities. Background: The posterior background rhythm is 8-9 Hz. Minimal reactivity seen with eye opening and closure. Photic stimulation: No response seen with photic stimulation. Hyperventilation: Not performed. Sleep: Drowsiness and sleep observed. EEG diagnosis: Occasional irregular theta activity seen throughout the recording. Nonsustained posterior background rhythm. Clinical interpretation: This EEG is consistent with mild generalized nonspecific cerebral dysfunction.
[2020-09-05] MEDS ORDERED: Enoxaparin Sodium 80 MG/0.8 ML SYRINGE SC SCH (21:00)
[2020-09-05] MEDS ORDERED: Magnesium 2 GM/50 ML 2 GM in Premix Bag 1 BAG IVPB SCH (23:15)
[2020-09-06 05:33] LABS: Anion Gap 10 mmol/L (10-20); BUN (Urea Nitrogen) 12 mg/dL (8.4-25.7); Calc. Creatinine Clearance 88 mL/min (70-130); Calcium 8.5 mg/dL (7.8-10.44); Carbon Dioxide 23 mmol/L (23-31); Chloride 109 mmol/L (98-107); Estimated GFR-MDRD 74; Glucose 142 mg/dL (80-115); Magnesium 2.1 mg/dL (1.6-2.6); Potassium 4.2 mmol/L (3.5-5.1); Sodium 138 mmol/L (136-145)
[2020-09-06 06:11] LABS: Anisocytosis SLIGHT = 6-15 cells (100X) (0-5/hpf); Band 5 % (5-11); Eosinophils 1 % (0-10); Hemoglobin 10.5 g/dL (14.0-18.0); Lymphocytes 47 % (21-51); MDiff Complete? YES; Mean Corpuscular HGB CONC 32.6 g/dL (32.0-36.0); Mean Platelet Volume 10.2 fL (7.4-10.4); Monocytes 15 % (0-10); Neutrophil 32 % (42-75); Platelet Count 107 thou/uL (130-400); Platelet Morphology Comment Appears Decreased; RBC Distribution Width 15.6 % (11.5-14.5); Red Blood Cell (RBC) Count 2.83 mill/uL (4.70-6.10); White Blood Cell (WBC) Count 8.4 thou/uL (4.8-10.8)
[2020-09-06 08:10] LABS: ALT (SGPT) 26 U/L (8-55); AST (SGOT) 43 U/L (5-34); Albumin 2.3 g/dL (3.4-4.8); Alkaline Phosphatase 211 U/L (40-110); Bilirubin, Direct 1.3 mg/dL (0.1-0.3); Bilirubin, Total 2.2 mg/dL (0.2-1.2); Protein, Total 5.6 g/dL (5.8-8.1)
[2020-09-06] MEDS ORDERED: Thiamine 100 MG TAB PO SCH (09:00)
[2020-09-06] MEDS ORDERED: Folic Acid 1 MG TAB PO SCH (09:00)
[2020-09-06] MEDS: Furosemide 40 MG/4 ML VIAL SLOW IVP SCH (09:57)
[2020-09-06] MEDS: Propranolol 10 MG TAB PO SCH (09:58)
[2020-09-06] MEDS: Rifaximin 550 MG TAB PO SCH ×2 (09:58→21:23)
[2020-09-06] MEDS: Pantoprazole 40 MG VIAL IVP SCH (09:58)
[2020-09-06] MEDS: Cyanocobalamin (Vitamin B-12) 1,000 MCG TAB PO SCH (09:58)
[2020-09-06] MEDS: Multivitamins, Adult 10 ML, Folic Acid 1 MG, Thiamine HCl 100 MG in Dextrose 5 %-0.45 %... IV SCH (11:13)
--- NOTE | 2020-09-06 13:17 | PDOC.NEUPN ---
- Subjective Encounter Date: 09/06/20 Subjective: Patient denies any new complaints in the last 24 hours. He is alert and oriented to person and place but unable to carry normal conversation and seems confused at baseline. He follows commands intermittently. - Objective Vital Signs & Weight: Vital Signs (12 hours) Temp Pulse Resp BP BP BP Pulse Ox 09/06/20 12:00 139/75 09/06/20 11:44 97.7 F 69 16 139/75 99 09/06/20 08:23 114/61 09/06/20 07:49 98.9 F 74 16 114/61 95 09/06/20 04:24 97.9 F 73 16 114/59 L 96 Weight Weight 188 lb I&O: 09/05/20 09/06/20 09/07/20 06:59 06:59 06:59 Intake Total 1370 2243 Output Total 1150 500 Balance 220 1743 Result Diagrams: 09/06/20 04:57 09/06/20 04:57 Radiology Reviewed by me: Yes EKG Reviewed by me: Yes ROS - Review of Systems Constitutional: denies: fever, chills, sweats, weakness, malaise, other Eyes: denies: pain, vision change, conjunctivae inflammation, eyelid inflammation, redness, other Gastrointestinal: denies: nausea, vomiting, abdominal pain, diarrhea, constipa tion, melena, hematochezia, other Musculoskeletal: denies: neck pain, shoulder pain, arm pain, back pain, hand pain, leg pain, foot pain, other All Systems: All other systems reviewed; all pertinent +/- noted in HPI/Subj - Medication Medications: Active Medications Generic Name Dose Route Start Last Admin Trade Name Caseyq PRN Reason Stop Dose Admin Cyanocobalamin 1,000 mcg 09/06/20 09:00 09/06/20 09:58 Cyanocobalamin (Vitamin B-12) 1,000 Mcg Tab PO 1,000 mcg DAILY MAURICIO Administration Propranolol HCl 10 mg 09/04/20 09:00 09/06/20 09:58 Propranolol 10 Mg Tab PO 10 mg DAILY MAURICIO Administration Rifaximin 550 mg 09/03/20 21:00 09/06/20 09:58 Rifaximin 550 Mg Tab PO 550 mg BID MAURICIO Administration Sodium Chloride 10 ml 09/03/20 14:01 09/06/20 09:59 Flush - Normal Saline 10 Ml Syringe IVF 10 ml PRN PRN Administration Saline Flush Results - Labs Result Diagrams: 09/06/20 04:57 09/06/20 04:57 Lab results: WBC 8.4 thou/uL (4.8-10.8) 09/06/20 04:57 Hgb 10.5 g/dL (14.0-18.0) L 09/06/20 04:57 Hct 32.2 % (42.0-52.0) L 09/06/20 04:57 MCV 114.0 fL (78.0-98.0) H 09/06/20 04:57 Plt Count 107 thou/uL (130-400) L 09/06/20 04:57 Band Neuts % (Manual) 5 % (5-11) 09/06/20 04:57 Sodium 138 mmol/L (136-145) 09/06/20 04:57 Potassium 4.2 mmol/L (3.5-5.1) 09/06/20 04:57 Chloride 109 mmol/L (98-107) H 09/06/20 04:57 Carbon Dioxide 23 mmol/L (23-31) 09/06/20 04:57 BUN 12 mg/dL (8.4-25.7) 09/06/20 04:57 Creatinine 1.01 mg/dL (0.7-1.3) 09/06/20 04:57 Glucose 142 mg/dL (80-115) H 09/06/20 04:57 Calcium 8.5 mg/dL (7.8-10.44) 09/06/20 04:57 Total Bilirubin 2.2 mg/dL (0.2-1.2) H 09/06/20 04:57 AST 43 U/L (5-34) H 09/06/20 04:57 ALT 26 U/L (8-55) 09/06/20 04:57 Alkaline Phosphatase 211 U/L (40-110) H 09/06/20 04:57 Ammonia 76 umol/L (18-72) H 09/06/20 09:53 Creatine Kinase 79 U/L (30-200) 09/03/20 09:10 Troponin I Less than 0.010 ng/mL (< 0.028) 09/03/20 09:10 Serum Total Protein 5.6 g/dL (5.8-8.1) L 09/06/20 04:57 Albumin 2.3 g/dL (3.4-4.8) L 09/06/20 04:57 Lipase 37 U/L (8-78) 09/03/20 09:10 Urine Ketones Negative mg/dL (Negative) 09/03/20 09:26 Urine Blood Trace (Negative) A 09/03/20 09:26 Urine Nitrite Negative (Negative) 09/03/20 09:26 Ur Leukocyte Esterase Negative Nisha/uL (Negative) 09/03/20 09:26 Urine RBC 0-3 HPF (0-3) 09/03/20 09:26 Urine WBC 0-3 HPF (0-3) 09/03/20 09:26 Ur Squamous Epith Cells None Seen HPF (0-3) 09/03/20 09:26 Urine Bacteria None Seen HPF (None Seen) 09/03/20 09:26 - EKG Interpretation EKG: Normal sinus rhythm - Radiology Interpretation MRI - head Status: image reviewed by me, report reviewed by me Additional Comment: M RI brain reviewed which did not reveal acute intracranial pathology. PN A/P (1) AMS (altered mental status) Code(s): R41.82 - ALTERED MENTAL STATUS, UNSPECIFIED Status: Acute (2) PORSCHE (acute kidney injury) Code(s): N17.9 - ACUTE KIDNEY FAILURE, UNSPECIFIED Status: Acute (3) Acute metabolic encephalopathy Code(s): G93.41 - METABOLIC ENCEPHALOPATHY Status: Acute (4) Cholelithiases Code(s): K80.20 - CALCULUS OF GALLBLADDER W/O CHOLECYSTITIS W/O OBSTRUCTION Status: Acute (5) ETOH abuse Code(s): F10.10 - ALCOHOL ABUSE, UNCOMPLICATED Status: Acute (6) Encephalopathy due to ammonia Code(s): T59.891A - TOXIC EFFECT OF GASES, FUMES AND VAPORS, ACCIDENTAL, INIT; G92 - TOXIC ENCEPHALOPATHY Status: Acute (7) Hepatic encephalopathy Code(s): K72.90 - HEPATIC FAILURE, UNSPECIFIED WITHOUT COMA Status: Acute (8) Hypokalemia Code(s): E87.6 - HYPOKALEMIA Status: Acute (9) Bipolar affective disorder Code(s): F31.9 - BIPOLAR DISORDER, UNSPECIFIED Status: Chronic (10) COPD (chronic obstructive pulmonary disease) Status: Chronic Qualifiers: COPD type: chronic bronchitis Chronic bronchitis type: unspecified Qualified Code(s): J42 - Unspecified chronic bronchitis (11) Cirrhosis of liver Code(s): K74.60 - UNSPECIFIED CIRRHOSIS OF LIVER Status: Chronic (12) HTN (hypertension) Code(s): I10 - ESSENTIAL (PRIMARY) HYPERTENSION Status: Chronic Qualifiers: Hypertension type: essential hypertension Qualified Code(s): I10 - Essential (primary) hypertension (13) Hepatitis C Code(s): B19.20 - UNSPECIFIED VIRAL HEPATITIS C WITHOUT HEPATIC COMA Status: Chronic Qualifiers: Viral hepatitis chronicity: chronic Hepatic coma status: without hepatic coma Qualified Code(s): B18.2 - Chronic viral hepatitis C (14) Hepatorenal syndrome Code(s): K76.7 - HEPATORENAL SYNDROME Status: Chronic (15) Liver cirrhosis Code(s): K74.60 - UNSPECIFIED CIRRHOSIS OF LIVER Status: Chronic Qualifiers: Hepatic cirrhosis type: alcoholic cirrhosis Ascites presence: unspecified Qualified Code(s): K70.30 - Alcoholic cirrhosis of liver without ascites - Plan Daily Plan: PT/OT, speech therapy, DVT proph w/SCDs Mr. Cosby is a 65-year-old male with a history significant for alcohol abuse, hyperammonemia, metabolic encephalopathy presented with altered mental status. Altered mental status seems to be multifactorial secondary to hyperammonemia and other metabolic issue versus alcohol withdrawal. Intracranial process seems less likely because the EEG and MRI brain are negative. MRI brain reviewed which was negative for acute intracranial pathology. EEG reviewed which was negative for seizure activity. Neurochecks every 4 hours. Continue home medications. [facility] protocol PT/OT/speech Patient counseled about alcohol abuse Continue medical management per primary team. Case management on board regarding discharge planning. Plan discussed with the patient, nursing staff and during the MDR rounds.
--- NOTE | 2020-09-06 13:49 | PDOC.HOSPP ---
- Subjective Encounter Date: 09/06/20 Encounter Time: 11:00 Subjective: Patient seen and examined for encephalopathy. Mentation improving. Denies any chest pain, shortness of breath, palpitations, nausea, vomiting, or new focal neurologic deficit. No seizures reported. - Objective Vital Signs & Weight: Vital Signs (12 hours) Temp Pulse Resp BP BP BP Pulse Ox 09/06/20 12:00 139/75 09/06/20 11:44 97.7 F 69 16 139/75 99 09/06/20 08:23 114/61 09/06/20 07:49 98.9 F 74 16 114/61 95 09/06/20 04:24 97.9 F 73 16 114/59 L 96 Weight Weight 188 lb I&O: 09/05/20 09/06/20 09/07/20 06:59 06:59 06:59 Intake Total 1370 2243 Output Total 1150 500 Balance 220 1743 Result Diagrams: 09/06/20 04:57 09/06/20 04:57 Additional Labs: Abnormal Lab Results - Last 48 hrs 09/05/20 03:56: Chloride 111 H, Anion Gap 9 L, Total Bilirubin 2.2 H, AST 37 H, Alkaline Phosphatase 180 H, Serum Total Protein 5.5 L, Albumin 2.4 L, Albumin/Globulin Ratio 0.8 L 09/05/20 03:56: Ammonia 79 H 09/05/20 10:28: Vitamin B12 1035 H 09/05/20 10:28: PT 16.8 H, APTT 36.5 H 09/06/20 04:57: Chloride 109 H 09/06/20 04:57: RBC 2.83 L, Hgb 10.5 L, Hct 32.2 L, MCV 114.0 H, MCH 37.0 H, RDW 15.6 H, Plt Count 107 L, Neutrophils % (Manual) 32 L, Monocytes % (Manual) 15 H, Plt Morphology Comment Appears Decreased L 09/06/20 04:57: Total Bilirubin 2.2 H, Direct Bilirubin 1.3 H, AST 43 H, Alkal ine Phosphatase 211 H, Serum Total Protein 5.6 L, Albumin 2.3 L 09/06/20 09:53: Ammonia 76 H Radiology Reviewed by me: Yes (MRI brainno acute findings) EKG Reviewed by me: Yes (Sinus rhythm on telemetry) Hospitalist ROS - Review of Systems Respiratory: denies: cough, dry, shortness of breath, hemoptysis, SOB with excertion, pleuritic pain, sputum, wheezing, other Cardiovascular: denies: chest pain, palpitations, orthopnea, paroxysmal noc. dyspnea, edema, light headedness, other Gastrointestinal: denies: nausea, vomiting, abdominal pain, diarrhea, constipation, melena, hematochezia, other - Medication Medications: Active Medications Generic Name Dose Route Start Last Admin Trade Name Freq PRN Reason Stop Dose Admin Cyanocobalamin 1,000 mcg 09/06/20 09:00 09/06/20 09:58 Cyanocobalamin (Vitamin B-12) 1,000 Mcg Tab PO 1,000 mcg DAILY MAURICIO Administration Propranolol HCl 10 mg 09/04/20 09:00 09/06/20 09:58 Propranolol 10 Mg Tab PO 10 mg DAILY MAURICIO Administration Rifaximin 550 mg 09/03/20 21:00 09/06/20 09:58 Rifaximin 550 Mg Tab PO 550 mg BID MAURICIO Administration Sodium Chloride 10 ml 09/03/20 14:01 09/06/20 09:59 Flush - Normal Saline 10 Ml Syringe IVF 10 ml PRN PRN Administration Saline Flush - Exam General Appearance: NAD Heart: RRR, no gallops Respiratory: no wheezes, no ronchi Gastrointestinal: non-tender, non-distended, normal bowel sounds Extremities: no cyanosis Neurological: no new deficit Neurological - other findings: Mild extremity tremors Psychiatric: A&O x 3 Hosp A/P - Plan DVT proph w/SCDs Toxic metabolic encephalopathymultifactorialPOA Hepatic encephalopathy Chronic alcoholism with alcohol intoxication on admission Chronic hepatitis C with cirrhosis with thrombocytopenia/hypoalbuminemia and esophageal varices Schizophrenia/bipolar disorder History of hypertension Medication noncompliance History of frequent falls Plan: Ammonia level still elevated. Will continue lactulose with rifaximin. Continue propranolol. Continue alcohol withdrawal protocol with lorazepam. Discontinue banana bag and IV Lasix. Continue physical therapy and Occupational Therapy. Will consult case worker for discharge planning. Will arrange for walker for gait imbalance and freq falls. Plan d/w brothlani Dain on phone.
[2020-09-07 05:36] LABS: ALT (SGPT) 26 U/L (8-55); AST (SGOT) 38 U/L (5-34); Albumin 2.4 g/dL (3.4-4.8); Alkaline Phosphatase 200 U/L (40-110); Anion Gap 11 mmol/L (10-20); BUN (Urea Nitrogen) 16 mg/dL (8.4-25.7); Bilirubin, Total 2.6 mg/dL (0.2-1.2); Calc. Creatinine Clearance 90 mL/min (70-130); Calcium 8.6 mg/dL (7.8-10.44); Carbon Dioxide 23 mmol/L (23-31); Chloride 108 mmol/L (98-107); Estimated GFR-MDRD 76; Globulin 3.3 g/dL (2.4-3.5); Glucose 125 mg/dL (80-115); Magnesium 1.8 mg/dL (1.6-2.6); Potassium 3.7 mmol/L (3.5-5.1); Protein, Total 5.7 g/dL (5.8-8.1); Sodium 138 mmol/L (136-145)
[2020-09-07 05:56] LABS: Hemoglobin 10.7 g/dL (14.0-18.0); Mean Corpuscular HGB CONC 32.7 g/dL (32.0-36.0); Mean Corpuscular Hemoglobin 37.2 pg (27.0-31.0); Mean Platelet Volume 9.8 fL (7.4-10.4); Platelet Count 112 thou/uL (130-400); RBC Distribution Width 15.7 % (11.5-14.5); Red Blood Cell (RBC) Count 2.88 mill/uL (4.70-6.10); White Blood Cell (WBC) Count 8.1 thou/uL (4.8-10.8)
[2020-09-07 06:12] LABS: Band 1 % (5-11); Lymphocytes 53 % (21-51); MDiff Complete? YES; Macrocytosis MODERATE=16-30 cells (100X) (0-5/hpf); Monocytes 15 % (0-10); Neutrophil 29 % (42-75); Platelet Morphology Comment Appears Decreased; Reactive Lymphocytes 1 % (0-10); Schistocytes SLIGHT = 2-5 cells (100X) (0-1/hpf); Target Cells SLIGHT = 2-5 cells (100X) (0-1/hpf)
[2020-09-07] MEDS: Thiamine 100 MG TAB PO SCH (08:47)
[2020-09-07] MEDS: Multivit, Therapeutic 1 TAB PO SCH (08:47)
[2020-09-07] MEDS: Rifaximin 550 MG TAB PO SCH ×2 (08:47→21:48)
[2020-09-07] MEDS: Propranolol 10 MG TAB PO SCH (08:47)
[2020-09-07] MEDS: Folic Acid 1 MG TAB PO SCH (08:48)
[2020-09-07] MEDS: Cyanocobalamin (Vitamin B-12) 1,000 MCG TAB PO SCH (08:48)
--- NOTE | 2020-09-07 19:01 | PDOC.HOSPP ---
- Subjective Encounter Date: 09/07/20 Encounter Time: 12:30 Subjective: Patient seen and examined for encephalopathy. Remains confused requiring sitter at the bedside. Otherwise no new issues overnight. - Objective Vital Signs & Weight: Vital Signs (12 hours) Temp Pulse Resp BP BP Pulse Ox 09/07/20 16:00 116/68 09/07/20 15:29 97.5 F L 68 16 116/68 94 L 09/07/20 12:00 113/67 09/07/20 11:17 98.1 F 67 17 113/67 95 09/07/20 07:59 104/56 L 09/07/20 07:29 98.6 F 69 16 124/75 93 L Weight Weight 188 lb I&O: 09/06/20 09/07/20 09/08/20 06:59 06:59 06:59 Intake Total 2243 1304 1255 Output Total 500 75 Balance 1743 1229 1255 Result Diagrams: 09/08/20 04:22 09/07/20 04:58 Additional Labs: 09/08/20 04:22 09/07/20 04:58 Abnormal Lab Results - Last 48 hrs 09/06/20 04:57: Total Bilirubin 2.2 H, Direct Bilirubin 1.3 H, AST 43 H, Alkaline Phosphatase 211 H, Serum Total Protein 5.6 L, Albumin 2.3 L 09/06/20 09:53: Ammonia 76 H 09/07/20 04:58: RBC 2.88 L, Hgb 10.7 L, Hct 32.8 L, MCV 114.0 H, MCH 37.2 H, RDW 15.7 H, Plt Count 112 L, Neutrophils % (Manual) 29 L, Band Neuts % (Manual) 1 L, Lymphocytes % (Manual) 53 H, Monocytes % (Manual) 15 H, Plt Morphology Comment Appears Decreased L, Macrocytosis MODERATE=16-30 cells H 09/07/20 04:58: Chloride 108 H, Total Bilirubin 2.6 H, AST 38 H, Alkaline Phosphatase 200 H, Serum Total Protein 5.7 L, Albumin 2.4 L, Albumin/Globulin Ratio 0.7 L EKG Reviewed by me: Yes (Sinus rhythm on telemetry) Hospitalist ROS - Review of Systems ROS unobtainable: due to mental status - Medication Medications: Active Medications Generic Name Dose Route Start Last Admin Trade Name Freq PRN Reason Stop Dose Admin Cyanocobalamin 1,000 mcg 09/06/20 09:00 09/07/20 08:48 Cyanocobalamin (Vitamin B-12) 1,000 Mcg Tab PO 1,000 mcg DAILY MAURICIO Administration Folic Acid 1 mg 09/07/20 09:00 09/07/20 08:48 Folic Acid 1 Mg Tab PO 1 mg DAILY MAURICIO Administration Lactulose 20 gm 09/06/20 15:00 09/07/20 15:18 Lactulose 20 Gm/30 Ml Udcup PO 20 gm TID MAURICIO Administration Multivitamins 1 tab 09/07/20 09:00 09/07/20 08:47 Multivit, Therapeutic 1 Tab PO 1 tab DAILY MAURICIO Administration Pantoprazole Sodium 40 mg 09/07/20 09:00 09/07/20 08:48 Pantoprazole 40 Mg Tab PO 40 mg DAILY MAURICIO Administration Propranolol HCl 10 mg 09/04/20 09:00 09/07/20 08:47 Propranolol 10 Mg Tab PO 10 mg DAILY MAURICIO Administration Rifaximin 550 mg 09/03/20 21:00 09/07/20 08:47 Rifaximin 550 Mg Tab PO 550 mg BID MAURICIO Administration Sodium Chloride 10 ml 09/03/20 14:01 09/06/20 09:59 Flush - Normal Saline 10 Ml Syringe IVF 10 ml PRN PRN Administration Saline Flush Thiamine HCl 100 mg 09/07/20 09:00 09/07/20 08:47 Thiamine 100 Mg Tab PO 100 mg DAILY MAURICIO Administration - Exam General Appearance: NAD, ill appearing Neck: supple Heart: RRR, no gallops Respiratory: no wheezes, no ronchi Gastrointestinal: soft, non-distended Extremities: no cyanosis Neurological: no new deficit Psychiatric: somnolent Psychiatric - other findings: Intermittent confusion Hosp A/P - Plan DVT proph w/SCDs (We will avoid Lovenox due to thrombocytopenia/coagulopathy/risk of falls) Toxic metabolic encephalopathymultifactorial Hepatic encephalopathy Chronic alcoholism with alcohol intoxication on admission Chronic hepatitis C with cirrhosis with thrombocytopenia/hypoalbuminemia and esophageal varices Schizophrenia/bipolar disorder History of hypertension Medication noncompliance History of frequent falls Plan: Patient remains confused with intermittent agitation. Continue sitter for now. Continue lactulose with rifaximin. Ammonia level today was 52. Patient is still able to maintain oral intake. Will consider IV fluids if needed. Continue other medications as above. Recheck labs in a.m. Patient is not stable for discharge.
[2020-09-07] MEDS ORDERED: Calcium Carbonate 500 MG ChewTAB PO PRN (21:05)
[2020-09-08 04:58] LABS: Magnesium 1.9 mg/dL (1.6-2.6); Phosphorus 3.1 mg/dL (2.3-4.7)
[2020-09-08 06:19] LABS: Anisocytosis SLIGHT = 6-15 cells (100X) (0-5/hpf); Band 10 % (5-11); Hemoglobin 10.6 g/dL (14.0-18.0); Lymphocytes 49 % (21-51); MDiff Complete? YES; Macrocytosis MODERATE=16-30 cells (100X) (0-5/hpf); Mean Corpuscular HGB CONC 33.1 g/dL (32.0-36.0); Mean Corpuscular Hemoglobin 37.7 pg (27.0-31.0); Mean Platelet Volume 9.7 fL (7.4-10.4); Monocytes 14 % (0-10); Neutrophil 27 % (42-75); Platelet Count 115 thou/uL (130-400); Platelet Morphology Comment Appears Decreased; RBC Distribution Width 15.8 % (11.5-14.5); Red Blood Cell (RBC) Count 2.82 mill/uL (4.70-6.10)
[2020-09-08] MEDS: Rifaximin 550 MG TAB PO SCH ×2 (09:11→21:44)
[2020-09-08] MEDS: Folic Acid 1 MG TAB PO SCH (09:11)
[2020-09-08] MEDS: Multivit, Therapeutic 1 TAB PO SCH (09:11)
[2020-09-08] MEDS: Thiamine 100 MG TAB PO SCH (09:11)
[2020-09-08] MEDS: Cyanocobalamin (Vitamin B-12) 1,000 MCG TAB PO SCH (09:11)
[2020-09-08] MEDS: Propranolol 10 MG TAB PO SCH (10:23)
--- NOTE | 2020-09-08 21:53 | PDOC.HOSPP ---
- Subjective Encounter Date: 09/08/20 Encounter Time: 11:30 Subjective: Patient seen and examined for altered mentation. Mentation improving. No nausea, vomiting or chest pain. - Objective Vital Signs & Weight: Vital Signs (12 hours) Temp Pulse Pulse Pulse Resp BP BP 09/08/20 15:49 120/70 09/08/20 15:02 98.9 F 72 20 09/08/20 12:25 113/71 09/08/20 11:43 98.1 F 71 22 H 09/08/20 10:31 78 71 140/76 09/08/20 10:25 BP BP Pulse Ox 09/08/20 15:49 09/08/20 15:02 120/70 95 09/08/20 12:25 09/08/20 11:43 113/71 95 09/08/20 10:31 121/72 09/08/20 10:25 134/79 Weight Weight 188 lb I&O: 09/07/20 09/08/20 09/09/20 06:59 06:59 06:59 Intake Total 1304 1495 575 Output Total 75 Balance 1229 1495 575 Result Diagrams: 09/08/20 04:22 09/07/20 04:58 EKG Reviewed by me: Yes (Sinus rhythm on telemetry) Hospitalist ROS - Review of Systems Respiratory: denies: cough, dry, shortness of breath, hemoptysis, SOB with excertion, pleuritic pain, sputum, wheezing, other Cardiovascular: denies: chest pain, palpitations, orthopnea, paroxysmal noc. dyspnea, edema, light headedness, other - Medication Medications: Active Medications Generic Name Dose Route Start Last Admin Trade Name Freq PRN Reason Stop Dose Admin Calcium Carbonate 1,000 mg 09/07/20 21:05 09/07/20 21:48 Calcium Carbonate 500 Mg Chewtab PO 1,000 mg Q4H PRN Administration Heartburn or Indigestion Cyanocobalamin 1,000 mcg 09/06/20 09:00 09/08/20 09:11 Cyanocobalamin (Vitamin B-12) 1,000 Mcg Tab PO 1,000 mcg DAILY MAURICIO Administration Folic Acid 1 mg 09/07/20 09:00 09/08/20 09:11 Folic Acid 1 Mg Tab PO 1 mg DAILY MAURICIO Administration Lactulose 20 gm 09/06/20 15:00 09/08/20 21:45 Lactulose 20 Gm/30 Ml Udcup PO 20 gm TID MAURICIO Administration Multivitamins 1 tab 09/07/20 09:00 09/08/20 09:11 Multivit, Therapeutic 1 Tab PO 1 tab DAILY MAURICIO Administration Pantoprazole Sodium 40 mg 09/07/20 09:00 09/08/20 09:11 Pantoprazole 40 Mg Tab PO 40 mg DAILY MAURICIO Administration Propranolol HCl 10 mg 09/04/20 09:00 09/08/20 10:23 Propranolol 10 Mg Tab PO 10 mg DAILY MAURICIO Administration Rifaximin 550 mg 09/03/20 21:00 09/08/20 21:44 Rifaximin 550 Mg Tab PO 550 mg BID MAURICIO Administration Sodium Chloride 10 ml 09/03/20 14:01 09/08/20 10:26 Flush - Normal Saline 10 Ml Syringe IVF 10 ml PRN PRN Administration Saline Flush Thiamine HCl 100 mg 09/07/20 09:00 09/08/20 09:11 Thiamine 100 Mg Tab PO 100 mg DAILY MAURICIO Administration - Exam General Appearance: NAD Neck: supple, no JVD Heart: RRR, no gallops Respiratory: no wheezes, no ronchi Gastrointestinal: non-tender, normal bowel sounds Extremities: no cyanosis, no clubbing Neurological: no new deficit Musculoskeletal: generalized weakness Psychiatric: normal affect, A&O x 3 Hosp A/P - Plan Toxic metabolic encephalopathymultifactorial Hepatic encephalopathy Chronic alcoholism with alcohol intoxication on admission Chronic hepatitis C with cirrhosis with thrombocytopenia/hypoalbuminemia and esophageal varices Schizophrenia/bipolar disorder History of hypertension Medication noncompliance History of frequent falls Plan: Mentation has significantly improved today. Patient is alert awake oriented 3. He agrees with penitentiary facility placement. Will continue current dose of lactulose with rifaximin. Continue PPIs, propranolol with multivitamins.
[2020-09-09] MEDS: Folic Acid 1 MG TAB PO SCH (11:16)
[2020-09-09] MEDS: Propranolol 10 MG TAB PO SCH (11:16)
--- NOTE | 2020-09-09 11:16 | CT ---
CT HEAD WITHOUT CONTRAST: INDICATION: Fall with head injury. COMPARISON: 09/03/2020. Correlation is also made to MRI of brain 09/05/2020. FINDINGS: Ventricles normal size and position. No intracranial hemorrhage, mass, or infarct. No interval child ge from the recent studies. IMPRESSION: No acute finding. POS: [facility]
[2020-09-09] MEDS: Thiamine 100 MG TAB PO SCH (11:17)
[2020-09-09] MEDS: Cyanocobalamin (Vitamin B-12) 1,000 MCG TAB PO SCH (11:17)
[2020-09-09] MEDS: Multivit, Therapeutic 1 TAB PO SCH (11:17)
[2020-09-09] MEDS: Rifaximin 550 MG TAB PO SCH ×2 (11:17→21:04)
--- NOTE | 2020-09-09 22:38 | PDOC.HOSPP ---
- Subjective Encounter Date: 09/09/20 Encounter Time: 12:30 Subjective: Patient seen and examined for generalized weakness. For generally weak. Had a fall this morningCT brain negative for acute findings. Denies any double vision, learning of vision or new focal deficit. - Objective Vital Signs & Weight: Vital Signs (12 hours) Temp Pulse Resp BP BP Pulse Ox 09/09/20 19:20 99.2 F 76 20 127/76 95 09/09/20 16:54 76 137/77 09/09/20 15:40 98.2 F 78 16 185/78 H 98 09/09/20 11:35 98.2 F 68 16 142/86 H 99 Weight Weight 188 lb I&O: 09/08/20 09/09/20 09/10/20 06:59 06:59 06:59 Intake Total 1495 1075 360 Balance 1495 1075 360 Result Diagrams: 09/08/20 04:22 09/07/20 04:58 Additional Labs: Accuchecks 09/09/20 09:50 POC Glucose 126 H Radiology Reviewed by me: Yes (CT brainno new findings) EKG Reviewed by me: Yes (Sinus rhythm on telemetry) Hospitalist ROS - Review of Systems Respiratory: denies: cough, dry, shortness of breath, hemoptysis, SOB with excertion, pleuritic pain, sputum, wheezing, other Cardiovascular: denies: chest pain, palpitations, orthopnea, paroxysmal noc. dyspnea, edema, light headedness, other - Medication Medications: Active Medications Generic Name Dose Route Start Last Admin Trade Name Freq PRN Reason Stop Dose Admin Calcium Carbonate 1,000 mg 09/07/20 21:05 09/07/20 21:48 Calcium Carbonate 500 Mg Chewtab PO 1,000 mg Q4H PRN Administration Heartburn or Indigestion Cyanocobalamin 1,000 mcg 09/06/20 09:00 09/09/20 11:17 Cyanocobalamin (Vitamin B-12) 1,000 Mcg Tab PO 1,000 mcg DAILY MAURICIO Administration Folic Acid 1 mg 09/07/20 09:00 09/09/20 11:16 Folic Acid 1 Mg Tab PO 1 mg DAILY MAURICIO Administration Lactulose 20 gm 09/06/20 15:00 09/09/20 21:04 Lactulose 20 Gm/30 Ml Udcup PO 20 gm TID MAURICIO Administration Multivitamins 1 tab 09/07/20 09:00 09/09/20 11:17 Multivit, Therapeutic 1 Tab PO 1 tab DAILY MAURICIO Administration Pantoprazole Sodium 40 mg 09/07/20 09:00 09/09/20 11:16 Pantoprazole 40 Mg Tab PO 40 mg DAILY MAURICIO Administration Propranolol HCl 10 mg 09/04/20 09:00 09/09/20 11:16 Propranolol 10 Mg Tab PO 10 mg DAILY MAURICIO Administration Rifaximin 550 mg 09/03/20 21:00 09/09/20 21:04 Rifaximin 550 Mg Tab PO 550 mg BID MAURICIO Administration Sodium Chloride 10 ml 09/03/20 14:01 09/08/20 10:26 Flush - Normal Saline 10 Ml Syringe IVF 10 ml PRN PRN Administration Saline Flush Thiamine HCl 100 mg 09/07/20 09:00 09/09/20 11:17 Thiamine 100 Mg Tab PO 100 mg DAILY MAURICIO Administration - Exam General Appearance: NAD Neck: supple, no JVD Heart: RRR, no gallops Respiratory: no wheezes, no ronchi Gastrointestinal: soft, non-tender, normal bowel sounds Extremities: no cyanosis, no clubbing Neurological: no new deficit Musculoskeletal: generalized weakness Psychiatric: A&O x 3 Hosp A/P - Plan DVT proph w/SCDs Toxic metabolic encephalopathymultifactorial Recurrent falls Hepatic encephalopathy Chronic alcoholism with alcohol intoxication on admission Chronic hepatitis C with cirrhosis with thrombocytopenia/hypoalbuminemia and esophageal varices Schizophrenia/bipolar disorder History of hypertension Medication noncompliance Plan: Await penitentiary facility placement. Continue sitter due to high risk of fall. Continue rifaximin, lactulose, propranolol and PPIs. Continue other medications as above.
[2020-09-10] MEDS: Folic Acid 1 MG TAB PO SCH (10:54)
[2020-09-10] MEDS: Propranolol 10 MG TAB PO SCH (10:54)
[2020-09-10] MEDS: Multivit, Therapeutic 1 TAB PO SCH (10:55)
[2020-09-10] MEDS: Thiamine 100 MG TAB PO SCH (10:55)
[2020-09-10] MEDS: Cyanocobalamin (Vitamin B-12) 1,000 MCG TAB PO SCH (10:55)
[2020-09-10] MEDS: Rifaximin 550 MG TAB PO SCH (11:04)
[2020-09-10 16:15] VITALS: BP 132/80; TEMP 98.5
--- NOTE | 2020-09-12 09:59 | DIS ---
DATE OF ADMISSION: 09/04/2020 DATE OF DISCHARGE: 09/10/2020 DISCHARGE DIAGNOSES: 1. Hepatic encephalopathy. 2. Cirrhosis due to hepatitis C and alcoholism. 3. Schizophrenia. 4. History of hypertension. 5. Noncompliance. DISCHARGE MEDICATIONS: 1. Lactulose 20 g orally t.i.d. as needed for constipation. The medicine to be titrated to achieve 3 bowel movements a day. 2. Rifaximin 550 mg orally b.i.d. 3. Propranolol 10 mg orally daily. HISTORY OF PRESENT ILLNESS AND HOSPITAL COURSE: The patient is a 65-year-old male with past medical history of hypertension, COPD, liver cirrhosis with history of esophageal varices, and alcoholism. The patient presented to the hospital with altered mental status secondary to hepatic encephalopathy. There were no signs of bleeding or infection. Imaging of the brain was also not revealing. The patient was managed with rifaximin and lactulose and was monitored closely. He started to respond within 48 hours and returned to baseline prior to discharge. EEG was performed while the patient was altered and was unrevealing. Job ID: [id number]
--- NOTE | 2020-09-14 02:21 | PQF ---
CLINICAL DOCUMENTATION CLARIFICATION FORM: Dear : Edel Fontaine MD Date / Time: 09/14/2020 Please exercise your independent, professional judgment in responding to the clarification form. Clinical indicators are provided on the bottom of this form for your review Please check appropriate box(es): to clarify the Hepatic encephalopathy etiology Hepatic Encephalopathy: Etiology: [ > ] Hepatic encephalopathy due to alcohol [ ] Other etiology (please specify) [ ] Unable to determine Physician Signature: Date/Time: For continuity of documentation, please document condition throughout progress notes and discharge summary. Thank You. To be completed by CDI/Coding staff for physician review: Present Clinical Indicators - Signs / Symptoms / Labs Results and Location in Medical Record [x] Altered mental status / confusion (i.e.: improving once underlying cause is corrected) H&P on 09/03 [x] His alcohol level in the ED was 104. H&P on 09/03 [x] Metabolic / electrolyte abnormality Hypokalemia Neurology PN on 09/06 [x] AMS secondary to hepatic encephalopathy Discharge summary on 09/10 [x] AMS secondary seems to be multifactorial secondary to history of alcohol abuse, hyperammonemia & metabolic causes Consult on 09/05 [ ] Severe Hypertension [ ] IV meds that can cause altered mental state [ ] Cerebral Edema [x] Chronic alcoholism with alcohol intoxication on admission Hospital PN on 09/06 [x] Alcohol abuse H&P on 09/03 Present Risk Factors Results and Location in Medical Record [ ] Hypertension - uncontrolled [ ] Toxic substances / poisoning [x] Alcoholic liver Cirrhosis Hospital PN on 09/04 [ ] Meningitis [ ] Brain tumor / elevated ICP [ ] DKA or hypoglycemia Present Treatments Results and Location in Medical Record [x] Neuro checks / neurology consult Consult on 09/05 [x] Patient was managed with rifazimin, lactulose & was monitored closely Discharge summary on 09/10 [x] Patient counseled about alcohol abuse Consult on 09/05 [x] Lactulose 20gm Medication from 09/03 to 09/06 [x] MVT, Folic acid,Thiamine Medication from 09/03 to 09/06 [ ] Nutritional supplements-TPN/TF [ ] Correction of electrolyte imbalances [ ] IV antibiotics CDS/Mri Assistant Signature: AAS Phone #: Date/Time: 09/14/2020 This is a permanent part of the Medical Record [facility]
== END 2020-09-10 18:53 | disposition home health service (06) | DRG 432 ==
LOC: ERS 09:05 → ERHOLD 14:07 → 2SE 14:47 → OBSVTOIN 09-04 14:01 → 2SE 09-06 20:07
PROVIDERS: ADMIT Student in an Organized Health Care Education/Training Program; ATTEND Internal Medicine
DX: K70.40 Alcoholic hepatic failure without coma (principal); K76.7 Hepatorenal syndrome; G92 Toxic encephalopathy; N17.9 Acute kidney failure, unspecified; J44.9 Chronic obstructive pulmonary disease, unspecified; F31.9 Bipolar disorder, unspecified; I10 Essential (primary) hypertension; F20.9 Schizophrenia, unspecified; R29.6 Repeated falls; R41.82 Altered mental status, unspecified; B18.2 Chronic viral hepatitis C; K70.30 Alcoholic cirrhosis of liver without ascites; F10.10 Alcohol abuse, uncomplicated; Z91.14 Patient's other noncompliance with medication regimen; K80.20 Calculus of gallbladder without cholecystitis without obstruction; E87.6 Hypokalemia
CPT/HCPCS: 36415; 36416; 51701; 70450; 70551; 71045; 80048; 80053; 80076; 80306; 80307; 81003; 81015; 82140; 82550; 82607; 83690; 83735; 83880; 84100; 84425; 84443; 84484; 85025; 85610; 85730; 87635; 93005; 95712; 95819; 95957; 96365; 96366; 96375; 96376; C9113; G0378; J1650; J1940; J2060; J2405; J3411; J3475; J7042; U0003

== ENCOUNTER 2020-09-13 14:38 | Emergency (ER) | payer MEDICARE, MEDICAID ==
[2020-09-13] MEDS ORDERED: Haloperidol Lactate 5 MG/ML VIAL ONE (15:17)
--- NOTE | 2020-09-13 16:00 | RAD ---
RADIOGRAPH LEFT SHOULDER 3 VIEWS: Date: 09/13/2020 HISTORY: 65-year-old male with left upper extremity numbness and pain after fall. FINDINGS: There is no fracture or dislocation. No high grade DJD of glenohumeral joint. Mild DJD of AC joint. IMPRESSION: No fracture. POS: [facility]
== END 2020-09-13 15:39 | disposition home or self-care (01) ==
LOC: ERS 14:38
DX: M25.512 Pain in left shoulder (principal); I10 Essential (primary) hypertension; K74.60 Unspecified cirrhosis of liver; J44.9 Chronic obstructive pulmonary disease, unspecified; F31.9 Bipolar disorder, unspecified; F20.9 Schizophrenia, unspecified; Z87.891 Personal history of nicotine dependence
CPT/HCPCS: 96372; J1630

== ENCOUNTER 2020-09-17 15:32 | Emergency (ER) | payer MEDICARE, OTHER ==
[2020-09-17 16:18] LABS: #Basophils 0.1 thou/uL (0.0-0.2); #Lymphocytes 4.8 thou/uL (1.20-3.40); #Monocytes 1.5 thou/uL (0.11-0.59); #Neutrophils 3.8 thou/uL (1.40-6.50); %Basophils 1.4 % (0.0-1.0); %Eosinophils 0.2 % (0.0-10.0); %Monocytes 14.3 % (0.0-10.0); %Neutrophils 37.1 % (42.0-75.0); Mean Corpuscular HGB CONC 33.7 g/dL (32.0-36.0); Mean Corpuscular Hemoglobin 38.5 pg (27.0-31.0); Platelet Count 135 thou/uL (130-400); RBC Distribution Width 16.5 % (11.5-14.5); Red Blood Cell (RBC) Count 2.87 mill/uL (4.70-6.10); White Blood Cell (WBC) Count 10.3 thou/uL (4.8-10.8)
--- NOTE | 2020-09-17 16:24 | RAD ---
XR Chest 1 View Portable HISTORY: Dyspnea COMPARISON: 09/03/2020 FINDINGS: The heart size enlarged. No lobar consolidation, pneumothoraces, girma pulmonary edema or p leural effusions are seen. IMPRESSION: No radiographic evidence of acute cardiopulmonary process.
[2020-09-17 16:36] LABS: ALT (SGPT) 25 U/L (8-55); AST (SGOT) 44 U/L (5-34); Albumin 2.7 g/dL (3.4-4.8); Alkaline Phosphatase 219 U/L (40-110); Anion Gap 12 mmol/L (10-20); BUN (Urea Nitrogen) 9 mg/dL (8.4-25.7); Bilirubin, Total 2.7 mg/dL (0.2-1.2); Calc. Creatinine Clearance 0 mL/min (70-130); Calcium 8.3 mg/dL (7.8-10.44); Carbon Dioxide 20 mmol/L (23-31); Chloride 110 mmol/L (98-107); Estimated GFR-MDRD 88; Globulin 3.6 g/dL (2.4-3.5); Glucose 113 mg/dL (80-115); Potassium 3.7 mmol/L (3.5-5.1); Protein, Total 6.3 g/dL (5.8-8.1); Sodium 138 mmol/L (136-145)
[2020-09-17] MEDS ORDERED: Furosemide 40 MG/4 ML VIAL ONE (16:52)
[2020-09-17 18:16] LABS: Bilirubin Negative (Negative); Blood, Urine Negative (Negative); Clarity Clear (Clear); Glucose, Urine (Dipstick) Normal (Negative); Ketone, Urine Negative (Negative); Leukocyte Negative Leu/uL (Negative); Nitrite Negative (Negative); Protein, Urine (Dipstick) Negative (Neg-Trace); Specific Gravity, Urine 1.005 (1.002-1.036); Urobilinogen Normal mg/dL (Less than 2)
== END 2020-09-17 18:02 | disposition home or self-care (01) ==
LOC: ERS 15:32
DX: R60.9 Edema, unspecified (principal); F10.129 Alcohol abuse with intoxication, unspecified; I11.0 Hypertensive heart disease with heart failure; I50.9 Heart failure, unspecified; J44.9 Chronic obstructive pulmonary disease, unspecified; E78.00 Pure hypercholesterolemia, unspecified; F31.9 Bipolar disorder, unspecified; F20.9 Schizophrenia, unspecified; Z87.891 Personal history of nicotine dependence
CPT/HCPCS: 36415; 71045; 80053; 81003; 82140; 83880; 84484; 85025; 93005; 96374; J1940

== ENCOUNTER 2020-09-18 03:02 | Emergency (ER) | payer MEDICARE, MEDICAID ==
[2020-09-18 03:41] LABS: Hemoglobin 11.2 g/dL (14.0-18.0); Mean Corpuscular HGB CONC 33.2 g/dL (32.0-36.0); Mean Corpuscular Hemoglobin 38.3 pg (27.0-31.0); Platelet Count 137 thou/uL (130-400); RBC Distribution Width 16.4 % (11.5-14.5); Red Blood Cell (RBC) Count 2.94 mill/uL (4.70-6.10)
[2020-09-18 04:00] LABS: ALT (SGPT) 28 U/L (8-55); AST (SGOT) 51 U/L (5-34); Albumin 2.9 g/dL (3.4-4.8); Alkaline Phosphatase 280 U/L (40-110); Anion Gap 12 mmol/L (10-20); BUN (Urea Nitrogen) 10 mg/dL (8.4-25.7); Bilirubin, Total 2.5 mg/dL (0.2-1.2); Calc. Creatinine Clearance 0 mL/min (70-130); Calcium 8.5 mg/dL (7.8-10.44); Carbon Dioxide 21 mmol/L (23-31); Chloride 108 mmol/L (98-107); Estimated GFR-MDRD 87; Globulin 3.9 g/dL (2.4-3.5); Glucose 96 mg/dL (80-115); Lipase 27 U/L (8-78); Potassium 3.9 mmol/L (3.5-5.1); Protein, Total 6.8 g/dL (5.8-8.1); Sodium 137 mmol/L (136-145)
[2020-09-18 04:25] LABS: Band 1 % (5-11); Lymphocytes 46 % (21-51); MDiff Complete? YES; Macrocytosis MODERATE=16-30 cells (100X) (0-5/hpf); Monocytes 19 % (0-10); Neutrophil 34 % (42-75); Schistocytes SLIGHT = 2-5 cells (100X) (0-1/hpf)
--- NOTE | 2020-09-18 09:28 | CT ---
PRELIMINARY REPORT/[facility]/EMERGENCY AFTER HOURS PROCEDURE: EXAM: CT Abdomen and Pelvis with Intravenous Contrast CLINICAL HISTORY: PT PRESENTS TODAY WITH C/O ABDOMINAL PAIN. PT STATES HE HAD N/V. PT HAD LIVER CIRRH OSIS. TECHNIQUE: Axial computed tomography images of the abdomen and pelvis with intravenous contrast. CONTRAST: With; ISOVUE 370,100mL COMPARISON: None provided. FINDINGS: LUNG BASES: No basilar airspace consolidation or pleural effusion. Bibasilar dependent atelectasis LIVER: Cirrhotic morphology of the liver. Multiple hyperdense lesions in the left hepatic lobe measu ring 4 x 4.3 cm and 3.8 x 3.9 cm. GALLBLADDER AND BILE DUCTS: Decompressed Multiple intraluminal calcified stones. No ductal dilation. PANCREAS: Unremarkable. SPLEEN: Hyperdense structure in the left upper abdomen may represent remnant spleen. ADRENAL GLANDS: Unremarkable. KIDNEYS, URETERS, AND BLADDER: Unremarkable. No hydronephrosis. Multiple nonobstructing left nephrol ith measuring up to 7 mm. No ureteral or bladder calculi. STOMACH AND BOWEL: No obstruction. No wall thickening. Scattered colonic diverticuli. No CT evidenc e of colitis or acute diverticulitis. APPENDIX: No CT evidence for appendicitis. PERITONEUM: No free fluid. No free air. LYMPH NODES: No lymphadenopathy. REPRODUCTIVE: Unremarkable as visualized. VASCULATURE: No aortic aneurysm. Multiple splenic varices. BONES: No fracture or suspicious osseous abnormality. Mild anterolisthesis of L4 on L5. Moderate L5 -S1 degenerative disc disease. ABDOMINAL WALL AND SOFT TISSUES: Bowel and fat-containing right inguinal hernia. IMPRESSION: 1. Cirrhotic morphology of the liver with multiple hyperdense lesions in the left hepatic lobe measu ring up to 4 x 4.3 cm concerning for neoplasm/hepatocellular carcinoma. Recommend dedicated multiphase CT or MRI for further characterization if no prior reports are available. 2. Sequela of portal hypertension. 3. Nonobstructing left nephrolith measuring up to 7 mm in the inferior pole. 4. Right bowel and fat-containing inguinal hernia without evidence of proximal bowel obstruction. ELECTRONICALLY SIGNED BY: Hugo Solis DO Sep 18, 2020 3:52:00 AM GEAR TOOTH LAPPING MACHINE OPERATOR FINAL REPORT EMERGENCY AFTER-HOURS STUDY CT ABDOMEN WITH CONTRAST CT PELVIS WITH CONTRAST: DATE: 09/18/2020. TIME: 3:36 AM. HISTORY: A 65-year-old male with abdominal pain. COMPARISON: 05/15/2020, 08/28/2019. TECHNIQUE: IV injection of iodinated contrast media: administered. Oral contrast media:Not administered. FINDINGS: Liver: Nodular margins consistent with cirrhosis. There are 3 solid heterogeneously enhancing tumor masses in the liver: Dome of right lobe hepatic segment 8: Mass measures 4.9 x 5.7 x 5.4 cm currently. It was 4.6 x 5.4 x 4.5 cm on 05/15/2020. It was 4.5 x 4.8 x 4.2 cm on 08/28/2019. There is a 2.4 x 3.2 x 3.3 cm mass in hepatic segment 2 of left lobe. It was 2.1 x 2.7 x 2.3 cm on 05/15/2020. It was 2.1 x 2.3 cm on 08/28/2019. There is a 3.1 x 4.1 x 4.6 cm mass in hepatic segment 3 of the left lobe. It was 2.4 x 2.7 x 3.6 cm o n 05/15/2020. It was 1.5 x 1.9 cm on 08/28/2019. None of these were present on 07/13/2014. Gallbladder contracted around multiple calcified gallstones. Prominent varices in the left upper quadrant. Multiple left renal calculi, small and moderate-sized, the largest one up to 11 mm. Fewer and smaller right renal calculi. Edema throughout the mesentery and the edema throughout subcutaneous fat. No appendicitis. Bilateral gynecomastia. Splenules in left upper quadrant. No major disagreement with preliminary report by [facility]. 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 2) Cirrhosis. 3) Prominent left upper quadrant varices. 4) Cholelithiasis. 5) Bilateral nephrolithiasis. Transcribed Date/Time: 09/18/2020 9:43 AM
[2020-09-18] MEDS ORDERED: Iopamidol-370 76% 500 ML 1 ML ONE (09:45)
== END 2020-09-18 04:08 | disposition home or self-care (01) ==
LOC: ERS 03:02
DX: R10.32 Left lower quadrant pain (principal); F20.9 Schizophrenia, unspecified; F31.9 Bipolar disorder, unspecified; E78.00 Pure hypercholesterolemia, unspecified; I10 Essential (primary) hypertension; J44.9 Chronic obstructive pulmonary disease, unspecified; R16.0 Hepatomegaly, not elsewhere classified; K74.60 Unspecified cirrhosis of liver; Z87.891 Personal history of nicotine dependence
CPT/HCPCS: 74177; 80053; 83690; 85025; 93005; Q9967

== ENCOUNTER 2020-09-20 22:31 | Emergency (ER) | payer MEDICARE, MEDICAID ==
[2020-09-20 23:32] LABS: INR-International Normal Ratio 1.4; PTT 36.2 sec (22.9-36.1); Prothrombin Time 17.3 sec (12.0-14.7)
[2020-09-20 23:48] LABS: ALT (SGPT) 22 U/L (8-55); AST (SGOT) 49 U/L (5-34); Albumin 2.7 g/dL (3.4-4.8); Alcohol 144 mg/dL (Less than 10); Alkaline Phosphatase 247 U/L (40-110); Anion Gap 14 mmol/L (10-20); BUN (Urea Nitrogen) 11 mg/dL (8.4-25.7); Bilirubin, Total 2.2 mg/dL (0.2-1.2); Calc. Creatinine Clearance 0 mL/min (70-130); Calcium 8.4 mg/dL (7.8-10.44); Carbon Dioxide 21 mmol/L (23-31); Chloride 111 mmol/L (98-107); Estimated GFR-MDRD 69; Globulin 3.5 g/dL (2.4-3.5); Glucose 111 mg/dL (80-115); Magnesium 1.7 mg/dL (1.6-2.6); Potassium 3.6 mmol/L (3.5-5.1); Protein, Total 6.2 g/dL (5.8-8.1); Sodium 142 mmol/L (136-145)
[2020-09-21 00:12] LABS: Mean Corpuscular HGB CONC 32.1 g/dL (32.0-36.0); Mean Corpuscular Hemoglobin 37.3 pg (27.0-31.0); Platelet Count 133 thou/uL (130-400); RBC Distribution Width 16.7 % (11.5-14.5); Red Blood Cell (RBC) Count 2.95 mill/uL (4.70-6.10)
[2020-09-21 00:35] LABS: Band 9 % (5-11); Lymphocytes 53 % (21-51); MDiff Complete? YES; Monocytes 8 % (0-10); Neutrophil 30 % (42-75)
== END 2020-09-21 01:20 | disposition home or self-care (01) ==
LOC: ERS 22:31
DX: F10.129 Alcohol abuse with intoxication, unspecified (principal); E78.00 Pure hypercholesterolemia, unspecified; I10 Essential (primary) hypertension; J44.9 Chronic obstructive pulmonary disease, unspecified; F31.9 Bipolar disorder, unspecified; F20.9 Schizophrenia, unspecified; Z87.891 Personal history of nicotine dependence
CPT/HCPCS: 80053; 80307; 82140; 83735; 84484; 85025; 85610; 85730; 93005

== ENCOUNTER 2020-09-22 15:46 | Emergency (ER) | payer MEDICARE, MEDICAID | END 2020-09-22 16:40 | disposition home or self-care (01) | LOC: ERS 15:46 | DX: Z04.3 Encounter for examination and observation following other accident (principal); I10 Essential (primary) hypertension; J44.9 Chronic obstructive pulmonary disease, unspecified; E78.00 Pure hypercholesterolemia, unspecified; F31.9 Bipolar disorder, unspecified; F20.9 Schizophrenia, unspecified; K74.60 Unspecified cirrhosis of liver; Z87.891 Personal history of nicotine dependence; W01.0XXA Fall on same level from slipping, tripping and stumbling without subsequent striking against object, initial encounter | CPT/HCPCS: 99281 ==

== ENCOUNTER 2020-09-23 22:24 | Emergency (ER) | payer MEDICARE, MEDICAID ==
--- NOTE | 2020-09-23 23:32 | CT ---
EXAM: CT brain without contrast HISTORY: Headache after fall earlier this week COMPARISON: 09/09/2020 TECHNIQUE: Multiple contiguous axial images were obtained and a CT of the brain without contrast. FINDINGS: There are scattered hypodensities in the subcortical and periventricular white matter consi stent with small vessel ischemic disease. There is no evidence of hydrocephalus, intracranial hemorrhage, or extra-axial fluid collection. The calvarium and overlying soft tissues are unremarkable. The visualized paranasal sinuses and masto id air cells are well aerated. IMPRESSION: No evidence of acute intracranial abnormality
[2020-09-23] MEDS ORDERED: Ibuprofen 200 MG TAB ONE ×2 (23:38→23:42)
== END 2020-09-24 00:52 | disposition home or self-care (01) ==
LOC: ERS 22:24
DX: R51.9 Headache, unspecified (principal); I10 Essential (primary) hypertension; K74.60 Unspecified cirrhosis of liver; J44.9 Chronic obstructive pulmonary disease, unspecified; I85.00 Esophageal varices without bleeding; E78.00 Pure hypercholesterolemia, unspecified; F20.9 Schizophrenia, unspecified; F31.9 Bipolar disorder, unspecified; Z87.891 Personal history of nicotine dependence
CPT/HCPCS: 70450

== ENCOUNTER 2020-09-24 06:02 | Emergency (ER) | payer MEDICARE, MEDICAID | END 2020-09-24 06:19 | LOC: ERS 06:02 | DX: R51.9 Headache, unspecified (principal); I10 Essential (primary) hypertension; J44.9 Chronic obstructive pulmonary disease, unspecified; E78.00 Pure hypercholesterolemia, unspecified; F31.9 Bipolar disorder, unspecified; F20.9 Schizophrenia, unspecified; Z87.891 Personal history of nicotine dependence | CPT/HCPCS: 99281 ==

== ENCOUNTER 2020-12-05 09:20 | Inpatient (IN) | payer MEDICARE, MEDICAID ==
[2020-12-05] MEDS ORDERED: cefTRIAXone\\ROCEPHIN 2 GM VIAL ONE ×2 (09:41→11:08)
[2020-12-05 10:04] LABS: INR-International Normal Ratio 1.7; PTT 33.4 sec (22.9-36.1)
[2020-12-05 10:09] LABS: Hemoglobin 8.3 g/dL (14.0-18.0); Mean Corpuscular HGB CONC 31.4 g/dL (32.0-36.0); Mean Corpuscular Hemoglobin 37.2 pg (27.0-31.0); Red Blood Cell (RBC) Count 2.24 mill/uL (4.70-6.10)
[2020-12-05 10:20] LABS: ALT (SGPT) 44 U/L (8-55); AST (SGOT) 68 U/L (5-34); Albumin 2.5 g/dL (3.4-4.8); Alkaline Phosphatase 157 U/L (40-110); Anion Gap 15 mmol/L (10-20); BUN (Urea Nitrogen) 37 mg/dL (8.4-25.7); Bilirubin, Total 5.7 mg/dL (0.2-1.2); Calc. Creatinine Clearance 0 mL/min (70-130); Calcium 8.4 mg/dL (7.8-10.44); Carbon Dioxide 24 mmol/L (23-31); Chloride 110 mmol/L (98-107); Globulin 2.9 g/dL (2.4-3.5); Glucose 128 mg/dL (80-115); Potassium 4.6 mmol/L (3.5-5.1); Protein, Total 5.4 g/dL (5.8-8.1); Sodium 144 mmol/L (136-145)
[2020-12-05 10:28] LABS: #Basophils 0.1 thou/uL (0.0-0.2); #Lymphocytes 3.2 thou/uL (1.20-3.40); #Monocytes 0.8 thou/uL (0.11-0.59); #Neutrophils 4.9 thou/uL (1.40-6.50); %Basophils 0.7 % (0.0-1.0); %Eosinophils 0.2 % (0.0-10.0); %Lymphocytes 35.6 % (21.0-51.0); %Monocytes 9.4 % (0.0-10.0); %Neutrophils 54.2 % (42.0-75.0); Bite Cells SLIGHT = 2-5 cells (100X) (0-1/hpf); Hypochromia SLIGHT = 6-15 cells (100X) (0-5/hpf); MDiff Complete? YES; Macrocytosis MODERATE=16-30 cells (100X) (0-5/hpf); Mean Platelet Volume 11.7 fL (7.4-10.4); Platelet Count 76 thou/uL (130-400); Platelet Morphology Comment Appears Decreased; Polychromasia SLIGHT = 2-3 cells (100X) (0-2/hpf); RBC Distribution Width 17.5 % (11.5-14.5); Schistocytes SLIGHT = 2-5 cells (100X) (0-1/hpf); Target Cells SLIGHT = 2-5 cells (100X) (0-1/hpf)
[2020-12-05 10:41] LABS: CKMB 1.4 ng/mL (0-6.6)
[2020-12-05 10:50] LABS: SARS-CoV-2 NAA Rapid Test DETECTED (NotDetected)
[2020-12-05] MEDS ORDERED: Dexamethasone 20 MG/5 ML VIAL ONE (10:55)
[2020-12-05] MEDS ORDERED: Succinylcholine 200 MG/10 ml SYRINGE FS ONE (10:55)
[2020-12-05] MEDS ORDERED: Rocuronium Bromide 10 MG/ML (10ML VIAL) ONE (10:55)
[2020-12-05] MEDS ORDERED: Lidocaine 1% PF 5 ML VIAL ONE (10:55)
[2020-12-05] MEDS ORDERED: PHENYLEPHRINE-NS 100 MCG/ML 10 ML SYRINGE ONE (10:55)
[2020-12-05] MEDS ORDERED: Ondansetron PF 4 MG/2 ML Vial ONE ×2 (10:55→11:50)
[2020-12-05] MEDS ORDERED: PROPOFOL 200 MG/20 ML VIAL ONE (10:55)
[2020-12-05] MEDS ORDERED: Iopamidol-370 76% 500 ML 1 ML ONE (12:18)
[2020-12-05] MEDS ORDERED: Metoclopramide HCl 10 MG/2 ML VIAL ONE (12:54)
[2020-12-05] MEDS ORDERED: Ondansetron PF 4 MG/2 ML Vial IVP PRN ×2 (12:57→20:30)
[2020-12-05] MEDS ORDERED: hydrALAZINE 20 MG/ML VIAL SLOW IVP PRN (12:57)
[2020-12-05 13:31] LABS: Platelet Count 63 thou/uL (130-400)
[2020-12-05 14:09] LABS: Lactic Acid 4.4 mmol/L (0.5-2.2)
[2020-12-05] MEDS ORDERED: SUGAMMADEX SODIUM 200 MG/2 ML VIAL ONE (14:17)
[2020-12-05 16:33] VITALS: BMI 32.4
[2020-12-05 17:26] LABS: Hemoglobin 9.2 g/dL (14.0-18.0); Platelet Count 54 thou/uL (130-400)
[2020-12-05] MEDS ORDERED: Acetaminophen 325 MG TAB PO PRN (20:30)
[2020-12-05] MEDS ORDERED: Ondansetron ODT 4 MG TAB SL PRN (20:30)
[2020-12-05 21:31] LABS: Hemoglobin 8.2 g/dL (14.0-18.0); Platelet Count 56 thou/uL (130-400)
[2020-12-06] MEDS: Octreotide Acetate 1,250 MCG in Sodium Chloride 0.9% 250 ML 250 ML IVPB SCH (00:45)
[2020-12-06 05:31] LABS: Anion Gap 11 mmol/L (10-20); BUN (Urea Nitrogen) 55 mg/dL (8.4-25.7); Calc. Creatinine Clearance 68 mL/min (70-130); Calcium 7.7 mg/dL (7.8-10.44); Carbon Dioxide 25 mmol/L (23-31); Chloride 113 mmol/L (98-107); Glucose 184 mg/dL (80-115); Potassium 4.1 mmol/L (3.5-5.1); Sodium 145 mmol/L (136-145)
[2020-12-06 05:37] LABS: #Lymphocytes 2.3 thou/uL (1.20-3.40); #Monocytes 0.9 thou/uL (0.11-0.59); %Basophils 0.3 % (0.0-1.0); %Lymphocytes 22.7 % (21.0-51.0); %Monocytes 8.6 % (0.0-10.0); %Neutrophils 68.4 % (42.0-75.0); Hemoglobin 7.4 g/dL (14.0-18.0); MDiff Complete? YES; Macrocytosis SLIGHT = 6-15 cells (100X) (0-5/hpf); Mean Corpuscular HGB CONC 33.2 g/dL (32.0-36.0); Mean Corpuscular Hemoglobin 37.8 pg (27.0-31.0); Mean Platelet Volume 12.1 fL (7.4-10.4); Platelet Count 52 thou/uL (130-400); Platelet Morphology Comment Appears Decreased; RBC Distribution Width 21.2 % (11.5-14.5); Red Blood Cell (RBC) Count 1.95 mill/uL (4.70-6.10); Target Cells SLIGHT = 2-5 cells (100X) (0-1/hpf); White Blood Cell (WBC) Count 10.3 thou/uL (4.8-10.8)
[2020-12-06] MEDS: Pantoprazole 80 MG, Admixture Fee 1 EACH in Sodium Chloride 0.9% 100 ML IVPB SCH ×2 (07:58→18:21)
[2020-12-06] MEDS: cefTRIAXone\\ROCEPHIN 1 GM in Sodium Chloride 0.9% 100 ML IVPB SCH (12:10)
[2020-12-06 15:09] LABS: Hemoglobin 8.2 g/dL (14.0-18.0)
[2020-12-06 15:49] LABS: Alpha-Fetoprotein,Tumor Marker 2.4 ng/mL (0.89-8.78)
[2020-12-06 20:50] LABS: Hemoglobin 8.6 g/dL (14.0-18.0)
[2020-12-07] MEDS ORDERED: Morphine 2 MG/ML VIAL SLOW IVP SCH (00:15)
[2020-12-07 04:56] LABS: Hemoglobin 7.9 g/dL (14.0-18.0)
[2020-12-07 05:13] LABS: Anion Gap 12 mmol/L (10-20); BUN (Urea Nitrogen) 56 mg/dL (8.4-25.7); Calc. Creatinine Clearance 71 mL/min (70-130); Calcium 7.6 mg/dL (7.8-10.44); Carbon Dioxide 22 mmol/L (23-31); Chloride 118 mmol/L (98-107); Glucose 145 mg/dL (80-115); Potassium 3.8 mmol/L (3.5-5.1); Sodium 148 mmol/L (136-145)
[2020-12-07] MEDS: Pantoprazole 80 MG, Admixture Fee 1 EACH in Sodium Chloride 0.9% 100 ML IVPB SCH ×2 (05:29→17:09)
[2020-12-07 10:54] LABS: Hemoglobin 8.7 g/dL (14.0-18.0)
[2020-12-07] MEDS: cefTRIAXone\\ROCEPHIN 1 GM in Sodium Chloride 0.9% 100 ML IVPB SCH (11:19)
[2020-12-07] MEDS: Sodium Chloride 0.9% 1,000 ML IV SCH (12:20)
[2020-12-07] MEDS: Octreotide Acetate 1,250 MCG in Sodium Chloride 0.9% 250 ML 250 ML IVPB SCH (12:20)
[2020-12-07 13:40] LABS: Hemoglobin 8.1 g/dL (14.0-18.0)
[2020-12-07 17:02] LABS: Hemoglobin 8.6 g/dL (14.0-18.0)
[2020-12-07] MEDS: Pantoprazole 40 MG VIAL IVP SCH (20:25)
[2020-12-08 05:30] LABS: INR-International Normal Ratio 1.6; Prothrombin Time 19.6 sec (12.0-14.7)
[2020-12-08 05:38] LABS: ALT (SGPT) 110 U/L (8-55); AST (SGOT) 95 U/L (5-34); Alkaline Phosphatase 100 U/L (40-110); Anion Gap 13 mmol/L (10-20); BUN (Urea Nitrogen) 42 mg/dL (8.4-25.7); Calc. Creatinine Clearance 90 mL/min (70-130); Calcium 7.5 mg/dL (7.8-10.44); Carbon Dioxide 19 mmol/L (23-31); Chloride 119 mmol/L (98-107); Globulin 2.8 g/dL (2.4-3.5); Glucose 114 mg/dL (80-115); Potassium 3.7 mmol/L (3.5-5.1); Protein, Total 4.8 g/dL (5.8-8.1); Sodium 147 mmol/L (136-145)
[2020-12-08 07:56] LABS: Band 4 % (5-11); Hemoglobin 8.3 g/dL (14.0-18.0); Lymphocytes 32 % (21-51); MDiff Complete? YES; Macrocytosis SLIGHT = 6-15 cells (100X) (0-5/hpf); Mean Corpuscular HGB CONC 32.3 g/dL (32.0-36.0); Mean Corpuscular Hemoglobin 37.2 pg (27.0-31.0); Mean Platelet Volume 11.8 fL (7.4-10.4); Monocytes 13 % (0-10); Myelocyte 1 % (0-0); Neutrophil 49 % (42-75); Nucleated RBC 5 % (0); Platelet Count 52 thou/uL (130-400); Platelet Morphology Comment Appears Decreased; Polychromasia MODERATE = 3-4 cells (100X) (0-2/hpf); Red Blood Cell (RBC) Count 2.22 mill/uL (4.70-6.10); Schistocytes MODERATE= 6-15 cells (100X) (0-1/hpf); Target Cells SLIGHT = 2-5 cells (100X) (0-1/hpf); White Blood Cell (WBC) Count 9.3 thou/uL (4.8-10.8)
[2020-12-08] MEDS: Pantoprazole 40 MG VIAL IVP SCH ×2 (09:23→20:41)
[2020-12-08] MEDS: Sodium Chloride 0.9% 1,000 ML IV SCH (11:59)
[2020-12-08] MEDS: cefTRIAXone\\ROCEPHIN 1 GM in Sodium Chloride 0.9% 100 ML IVPB SCH (11:59)
[2020-12-08 23:03] VITALS: BP 123/71; TEMP 98.4
== END 2020-12-08 22:25 | disposition short-term general hospital (02) | DRG 435 ==
LOC: ERS 09:20 → OBSVTOIN 15:52 → 2SE 15:52
PROVIDERS: ADMIT Internal Medicine; ATTEND Internal Medicine
PROC: 0DJ08ZZ Inspection of Upper Intestinal Tract, Via Natural or Artificial Opening Endoscopic (ICD-10-PCS; 2020-12-05)
PROC: 30233N1 Transfusion of Nonautologous Red Blood Cells into Peripheral Vein, Percutaneous Approach (ICD-10-PCS; 2020-12-05)
PROC: 8E0ZXY6 Isolation (ICD-10-PCS; principal; 2020-12-06)
DX: C22.0 Liver cell carcinoma (principal); U07.1 COVID-19; G93.41 Metabolic encephalopathy; N17.9 Acute kidney failure, unspecified; D62 Acute posthemorrhagic anemia; K92.0 Hematemesis; I86.4 Gastric varices; K70.31 Alcoholic cirrhosis of liver with ascites; F10.10 Alcohol abuse, uncomplicated; J44.9 Chronic obstructive pulmonary disease, unspecified; I10 Essential (primary) hypertension; F31.9 Bipolar disorder, unspecified; F20.9 Schizophrenia, unspecified; E78.5 Hyperlipidemia, unspecified; D69.6 Thrombocytopenia, unspecified; E80.6 Other disorders of bilirubin metabolism; Z90.81 Acquired absence of spleen; Z98.890 Other specified postprocedural states; Z86.19 Personal history of other infectious and parasitic diseases
CPT/HCPCS: 0240U; 36415; 36430; 71045; 74178; 80048; 80053; 82105; 82378; 82553; 83605; 84484; 85014; 85018; 85025; 85610; 85730; 86301; 86304; 86850; 86900; 86901; 93005; 96361; 96365; 96374; 96375; C9113; J0696; J1100; J2270; J2354; J2405; J2704; J2765; J3490; J7050; P9016; Q9967